=== PATIENT | male | born 1980 | race Caucasian/White ===

== ENCOUNTER 2020-07-10 21:00 | Emergency (ER) | payer OTHER, SELFPAY ==
[2020-07-10 21:03] VITALS: BP 140/107; PULSE 65; RESP 18; TEMP 36.7; O2SAT 72; BMI 25.0
--- NOTE | 2020-07-10 21:16 | PC.NURSE ---
IN ROOM FOR EVAL.
--- NOTE | 2020-07-10 21:19 | PC.NURSE ---
Iv established, labs obtained. at bedside for primary eval.
--- NOTE | 2020-07-10 21:22 | CT_ITS ---
EXAMINATION: CT ABDOMEN AND PELVIS WITH CONTRAST CLINICAL INFORMATION: Left lower quadrant pain. History of diverticulitis. COMPARISON: CT scan abdomen pelvis 11/30/2019 TECHNIQUE: Multidetector volumetric images were obtained from the superior aspect of the liver through the pubic symphysis following administration 85 mL of Omnipaque 350 intravenous contrast. Sagittal and coronal reformatted images were obtained on the technologist's workstation. Oral contrast: No This CT examination was performed using dose optimization techniques as appropriate, variously including the following: *Automated exposure control *Adjustment of mA and/or kV according to patient size (this includes techniques or standardized protocols for targeted exams where dose is matched to indication/reason for exam; i.e. extremities or head) *Use of iterative reconstruction technique DLP: 648 mGy-cm FINDINGS: LUNG BASES: The visualized lung bases are unremarkable. LIVER, GALLBLADDER, AND BILIARY TREE: The liver is normal in size, shape, and attenuation. No focal hepatic lesion or biliary ductal dilatation is present. The gallbladder is unremarkable with no evidence of radiopaque gallstones, gallbladder wall thickening, or obvious pericholecystic inflammatory changes. PANCREAS: Unremarkable. SPLEEN: Unremarkable. ADRENAL GLANDS: Unremarkable. KIDNEYS AND URETERS: The kidneys are normal in size, shape, and attenuation. No hydronephrosis, hydroureter, or calculi seen. No perinephric stranding. Tiny cortical cyst upper pole of right kidney BLADDER: Unremarkable. GASTROINTESTINAL TRACT: There is diverticulosis of the sigmoid and distal descending colon. There is moderate diverticulitis of the distal descending proximal sigmoid colon. There is bowel wall thickening and pericolonic edema. Small amount of fluid adjacent to the colon in this area. No perforation or abscess. No bowel obstruction. Moderate volume of stool in the colon with most of the stool in the right colon. The appendix is normal. The small bowel loops are unremarkable. ABDOMINAL WALL: Surgical mesh at the anterior lower abdominal wall and pelvis. There is a small fat-containing right inguinal hernia. LYMPH NODES: Normal. VASCULAR: Unremarkable. PELVIC VISCERA: Unremarkable. OSSEOUS STRUCTURES: Linear track of osteosclerotic changes of the medullary cavity of the right proximal femur. Question prior intramedullary yosi. Degenerative change of the lumbosacral junction with vacuum disc phenomenon and vertebral endplate spurs. CT/CT abdomen pelvis w con IMPRESSION: Diverticulitis of the distal descending and proximal sigmoid colon
--- NOTE | 2020-07-10 21:25 | ED.ABDPAIN ---
HPI - Abdominal Pain General Chief Complaint: Abdominal Pain Stated Complaint: ABDOMINAL PAIN Time Seen by Provider: 07/10/20 21:22 Source: patient Mode of arrival: ambulatory Limitations: no limitations History of Present Illness HPI narrative: 39-year-old male who presents to emergency department for evaluation of lower abdominal pain which began yesterday. The patient states the pain came on gradually and got progressively worse. He describes the pain as a constant, stabbing pain which is 10/10. He points to his suprapubic and left lower quadrant area when asked to localize the pain. He had 1 episode of emesis this morning. He has had associated nausea with loss of appetite. He has had several episodes of loose diarrheal stool with no blood in stool. Patient states that he has had 2 episodes of diverticulitis in the past today's pain feels like his diverticulitis pain. He states this last episode was 1 year prior and he was treated with oral antibiotics as an outpatient. The patient's past surgical history is significant for bilateral herniorrhaphy. Related Data Previous Rx's Medication Instructions Recorded levofloxacin 500 mg PO DAILY 10 Days #10 tab 07/11/20 metronidazole 500 mg PO TID 10 Days #30 tab 07/11/20 oxycodone 5 mg PO Q4H PRN #12 tab 07/11/20 Allergies Allergy/AdvReac Type Severity Reaction Status Date / Time amoxicillin [From AUGMENTIN] Allergy Unknown HIVES Verified 07/10/20 21:02 clavulanic acid Allergy Unknown HIVES Verified 07/10/20 21:02 [From AUGMENTIN] Review of Systems Review of Systems Yes all other systems are reviewed and are negative Constitutional: Reports as per HPI Eyes: Reports as per HPI Reports as per HPI Cardiovascular: Reports as per HPI Respiratory: Reports as per HPI Gastrointestinal: Reports as per HPI Genitourinary: Reports as per HPI Musculoskeletal: Reports as per HPI Skin/Breast: Reports as per HPI Reports as per HPI and Reports Abnormal speech present Psychiatric: Reports as per HPI Allergic/Immunologic: Reports as per HPI Physical Exam Vital Signs: Vital Signs: Last Vital Signs Temp 98.1 F 07/10/20 21:03 Pulse 65 07/10/20 21:03 Resp 18 07/10/20 21:03 BP 140/107 H 07/10/20 21:03 Pulse Ox 72 L 07/10/20 21:03 Body Mass Index 25.0 Const: General: cooperative, alert, awake and other (Mild distress secondary to pain) Nutritional Appearance: well nourished Orientation/consciousness: oriented to person and oriented to place Limitations: no limitations HENMT: Head: Yes normal to inspection, Yes normocephalic and Yes atraumatic Ears: external ears normal General nose exam: Normal external nose present Face and sinus: Yes normal facial exam Mouth: Normal oral and palatal mucosa present Throat: Yes posterior oropharynx normal Eyes: General: appearance normal, both eyes and all related structures Periorbital: periorbital findings normal Eyelids: Yes eyelids normal Conjunctivae: conjunctivae normal Sclerae: sclerae normal Corneas: corneas normal Pupils: Equal, round and reactive pupils present Direct Ophthalmoscopy: normal light reflex Neck: Neck: Yes normal visual inspection and Yes supple Lymphatic: no lymphadenopathy noted Chest: Chest palpation & inspection: normal inspection of the chest and normal palpation of entire chest wall Resp: Effort & Inspection: normal respiratory effort, abnormal respiratory pattern, no audible wheezes and no respiratory distress Auscultation: clear to auscultation bilaterally, no crackles, no rales, no rhonchi and no wheezes Cardio: Rate: regular rate Rhythm: regular rhythm Heart sounds: S1 normal heart sound present and S2 normal heart sound present GI: Inspection: No distended Palpation (GI): Soft to palpation, Tenderness to palpation present (GI) in the LUQ (Moderate) and suprapubicly (Moderate), no guarding and No hepatosplenomegaly present Auscultation: normal bowel sounds : General: Yes no CVA tenderness Back/Spine/Pelvis: Back: no CVA tenderness Skin: General skin exam: no rashes or lesions noted Lesions: no lesions Rashes: no rashes Wounds: no wounds Neuro: General: oriented to person and oriented to place Cranial nerves: Yes CN's II-XII intact bilaterally and Yes Equal, round and reactive pupils present Cognition (Neuro): normal cognition Speech: Abnormal speech present Motor exam (neuro): 5/5 motor strength present throughout Extrem: General: Yes normal to inspection, Yes full ROM, Yes no pedal edema and Yes no calf tenderness Psych: Appearance: grossly normal Mental Status: mental status grossly normal Speech and movement: Clear speech present Affect: normal affect Thought process: Normal thought process present Course Course Course Narrative: 39-year-old male with a history of diverticulitis x2 in the past, last episode 1 year prior presents with suprapubic and left lower quadrant pain x2 days which feels similar to his diverticulitis in the past. Physical examination revealed that he was in distress secondary to his pain did have moderate suprapubic and left lower quadrant tenderness. I ordered an abdominal pain workup to include CT scan of the abdomen pelvis with IV contrast. He was ordered Toradol 30 mg IV, Zofran 4 mg IV normal saline IV x1 L. 0001: The patient's laboratory evaluation was unremarkable. The patient's CT scan of the abdomen pelvis with IV contrast revealed diverticulitis of the distal descending and proximal sigmoid colon, there was no evidence of perforation or abscess, the patient does have mural wall thickening and fluid around the colon. The patient got some improvement with Toradol and he did not want any IV morphine at this point because he wants to drive home. The patient was given his 1st dose of Levaquin 500 mg orally and metronidazole 500 mg orally. The patient was discharged home with prescriptions for Levaquin and metronidazole for 10 days. He was advised to take Tylenol and ibuprofen for pain and was given a limited prescription for oxycodone 5 mg every 4-6 hours as needed for pain dispense . He is given a note not to return to work until Wednesday07/14/2020. [facility] search revealed 1 prescription for tramadol over a 1 year surgery arranged.. MDM - Abdominal Pain Lab Data Result diagrams: 07/10/20 21:33 07/10/20 21:33 Labs: Lab Results 07/10/20 07/10/20 07/10/20 Range/Units 21:33 21:33 23:27 WBC 10.1 (4.8-10.8) X10*3/uL RBC 4.85 (4.60-5.80) X10*6/uL Hgb 16.0 (14.0-18.0) g/dl Hct 46.8 (42-52) % MCV 96.5 (80-98) fL MCH 33.0 (27.0-33.0) pg MCHC 34.2 (31.0-36.0) g/dl RDW 13.9 (11.0-16.0) % Plt Count 202 (160-400) X10*3/uL MPV 9.0 L (9.4-12.4) fL Immature Gran % (Auto) 0.2 (0.0-0.4) % Neut % (Auto) 63.8 (45-73) % Lymph % (Auto) 23.8 (20-40) % [place] % (Auto) 10.4 (2-11) % Eos % (Auto) 1.3 (0-4) % Baso % (Auto) 0.5 (0-2) % Lymph # (Auto) 2.4 (1.2-4.9) X10*3/uL [place] # (Auto) 1.1 (0.1-1.2) X10*3/uL Eos # (Auto) 0.1 (0.0-0.4) X10*3/uL Baso # (Auto) 0.1 (0.0-0.2) X10*3/uL Abs Immat Gran (auto) 0.02 (0.00-0.03) X10*3/uL Absolute Neuts (auto) 6.4 (2.0-8.3) X10*3/uL Absolute Nucleated RBC 0.000 (0.0-0.012) X10*3/uL Nucleated RBC % (auto) 0.0 (0.0-0.2) /100WBC Sodium 135 (135-145) mmol/L Potassium 4.2 (3.3-5.1) mmol/l Chloride 97 (96-108) mmol/L Carbon Dioxide 28 (22-29) mmol/L Anion Gap 14 (12-20) BUN 15 (9-16) mg/dL Creatinine 1.09 (0.5-1.4) mg/dL Estim Creat Clear Calc 83.3 Estimated GFR > 60 Random Glucose 108 (60-115) mg/dL Calcium 9.0 (8.4-10.2) mg/dL Total Bilirubin 0.6 (0.0-1.0) mg/dL Direct Bilirubin 0.3 (0.0-0.5) mg/dL AST 35 (5-37) U/L ALT 47 H (0-40) U/L Alkaline Phosphatase 52 (39-117) U/L Total Protein 7.5 (6.5-8.0) g/dL Albumin 4.4 (3.5-5.0) g/dL Lipase 36 (8-78) U/L Urine Color YELLOW Urine Appearance CLEAR Urine pH 7.5 (5.0-8.0) Ur Specific [place] <= 1.005 (1.005-1.025) Urine Protein NEG (NEG-TRACE) MG/DL Urine Glucose (UA) NEG (NEG) MG/DL Urine Ketones NEG (NEG) MG/DL Urine Blood NEG (NEG) Urine Nitrite NEG (NEG) Ur Leukocyte Esterase NEG (NEG) Discharge Plan Discharge Clinical Impression: Diverticulitis Patient Disposition: Home, Self-Care Instructions: Diverticulitis (ED) Additional Instructions: Your blood work was normal. The CT scan of your abdomen and pelvis with IV contrast is consistent with diverticulitis of the descending and proximal sigmoid colon. There is no evidence for perforation (free air) or an abscess at this time. You received Levaquin 500 mg orally and Flagyl 500 mg orally here in the emergency department. Take Levaquin 500 mg once a day for 10 days. Take Flagyl (metronidazole) 500 mg 3 times a day for the 10 days. Take ibuprofen 200 mg pills, 3 pills every 6 hours as needed for pain. Take Tylenol extra strength 500 mg pills, 2 pills every 4-6 hours as needed for pain. For pain not relieved by ibuprofen or Tylenol take oxycodone 5 mg pills, 1 pill every 4 hours as needed for pain. This medication will make you sleepy, do not drive or work while taking this medication. This medication can be addicting. No work until [id number]/14/2020. Follow-up with your doctor in 2 days for re-evaluation. Please return to emergency department if your symptoms get worse or if you develop any new symptoms that are concerning to you. Prescriptions: New levofloxacin 500 mg tablet 500 mg PO DAILY 10 Days Qty: 10 RF: 0 metronidazole 500 mg tablet 500 mg PO TID 10 Days Qty: 30 RF: 0 oxycodone 5 mg tablet 5 mg PO Q4H PRN (Reason: pain) Qty: 12 RF: 0 [facility] Past Medical History Attestation statement: The following information was validated with the patient. [facility] Narrative: The patient states he is employed. He does smoke 1 pack of cigarettes per day times 10 years. He drinks alcohol 2 to 3 times a week. He smokes marijuana daily. Medical History Diverticulitis Social History Social History Advance Directives: No Advance Directives Information Provided: Yes
[2020-07-10] MEDS: ondansetron HCL 4 MG/2 ML VIAL IVPUSH (21:31)
[2020-07-10] MEDS: Ketorolac Tromethamine 30 MG/ML VIAL IVPUSH (21:31)
--- NOTE | 2020-07-10 21:34 | PC.NURSE ---
Pt medicated per EMAR for 10/10 pain and nausea, aware of plan to obtain CT. Continue to monitor.
[2020-07-10 21:40] LABS: Basophils Absolute Auto 0.1 X10*3/uL (0.0-0.2); Basophils Percent Auto 0.5 % (0-2); Eosinophils Absolute Auto 0.1 X10*3/uL (0.0-0.4); Eosinophils Percent Auto 1.3 % (0-4); Hematocrit 46.8 % (42-52); Imm Gran Abs Auto 0.02 X10*3/uL (0.00-0.03); Imm Gran Pct Auto 0.2 % (0.0-0.4); Lymphocytes Absolute Auto 2.4 X10*3/uL (1.2-4.9); Lymphocytes Percent Auto 23.8 % (20-40); MANUAL DIFF FLAG NO; Mean Corpuscular HGB Conc 34.2 g/dl (31.0-36.0); Mean Corpuscular Volume 96.5 fL (80-98); Monocytes Absolute Auto 1.1 X10*3/uL (0.1-1.2); Monocytes Percent Auto 10.4 % (2-11); Neutrophils Absolute Auto 6.4 X10*3/uL (2.0-8.3); Neutrophils Percent Auto 63.8 % (45-73); Platelet Count 202 X10*3/uL (160-400); Red Blood Count 4.85 X10*6/uL (4.60-5.80); Red Cell Distribution Width 13.9 % (11.0-16.0); White Blood Count 10.1 X10*3/uL (4.8-10.8)
[2020-07-10 22:20] LABS: Alanine Aminotransferase 47 U/L (0-40); Albumin Level 4.4 g/dL (3.5-5.0); Alkaline Phosphatase 52 U/L (39-117); Anion Gap 14 (12-20); Aspartate Amino Transferase 35 U/L (5-37); Bilirubin Direct 0.3 mg/dL (0.0-0.5); Bilirubin Total 0.6 mg/dL (0.0-1.0); Blood Urea Nitrogen 15 mg/dL (9-16); Carbon Dioxide 28 mmol/L (22-29); Chloride 97 mmol/L (96-108); Creatinine Clr Calc Pharmacy 83.3; Estimated Glomerular Filt Rate > 60; Glucose Random 108 mg/dL (60-115); Lipase 36 U/L (8-78); Potassium 4.2 mmol/l (3.3-5.1); Sodium 135 mmol/L (135-145); Total Protein 7.5 g/dL (6.5-8.0)
[2020-07-10] MEDS: iohexoL 350 MG/ML 100 ML INFUS..BTL IV (22:32)
[2020-07-10 23:51] LABS: Glucose Urine UA NEG (NEG); Leukocyte Esterase Urine NEG (NEG); Nitrite Urine NEG (NEG); PH 7.5 (5.0-8.0); Specific Gravity - Urine <= 1.005 (1.005-1.025); Urine Blood NEG (NEG); Urine Ketones NEG (NEG); Urine Protein NEG (NEG-TRACE)
[2020-07-10 23:53] LABS: Appearance Urine CLEAR; Color Urine YELLOW; UACC Culture Trigger NO
[2020-07-11] MEDS: metroNIDAZOLE 500 MG TABLET PO (00:14)
[2020-07-11] MEDS: levoFLOXacin 500 MG TABLET PO (00:14)
== END 2020-07-11 00:22 | disposition home or self-care (01) ==
PROVIDERS: Emergency Provider Emergency Medicine Emergency Medical Services
DX: K57.32 Diverticulitis of large intestine without perforation or abscess without bleeding (principal)
CPT/HCPCS: 36415; 74177; 80048; 80076; 81003; 83690; 85025; 96374; 96375; 99283; 99284; J1885; J2405; Q9967

== ENCOUNTER 2020-12-04 22:35 | Emergency (ER) | payer OTHER, SELFPAY ==
--- NOTE | ~2020-12-04 | CT_ITS ---
EXAMINATION: CT ABDOMEN AND PELVIS WITHOUT CONTRAST CLINICAL INFORMATION: Left lower quadrant pain with history of diverticulitis COMPARISON: 07/10/2020 TECHNIQUE: Multidetector volumetric imaging was performed from the superior aspect of the liver through the pubic symphysis. Sagittal and coronal reformatted images were obtained on the technologist's workstation. This CT examination was performed using dose optimization techniques as appropriate, variously including the following: *Automated exposure control *Adjustment of mA and/or kV according to patient size (this includes techniques or standardized protocols for targeted exams where dose is matched to indication/reason for exam; i.e. extremities or head) *Use of iterative reconstruction technique DLP: 680 mGy-cm FINDINGS: Suboptimal assessment in some regions due to motion artifact. LUNG BASES: The visualized lung bases are unremarkable. LIVER, GALLBLADDER, AND BILIARY TREE: The liver demonstrates some heterogeneity in the right lobe with areas of lower attenuation, suspicious for nonuniform fatty infiltration. No biliary ductal dilatation is present. The gallbladder is unremarkable with no evidence of radiopaque gallstones, gallbladder wall thickening, or obvious pericholecystic inflammatory changes. PANCREAS: Unremarkable. SPLEEN: Unremarkable. ADRENAL GLANDS: Unremarkable. KIDNEYS AND URETERS: The kidneys are normal in size, shape, and attenuation. No hydronephrosis, hydroureter, or calculi seen. No perinephric stranding. BLADDER: Unremarkable. GASTROINTESTINAL TRACT: There is a short segment of wall thickening and surrounding inflammation in the distal descending colon in the region of diverticula, most suspicious for acute diverticulitis. No pericolonic abscess or free air is seen. No evidence of bowel obstruction. The appendix is unremarkable. ABDOMINAL WALL: There is a fat-containing right inguinal hernia. LYMPH NODES: Normal. VASCULAR: Infrarenal aortic calcification is noted. PELVIC VISCERA: Unremarkable. OSSEOUS STRUCTURES: Scattered degenerative changes are present in the spine. CT/CT abdomen pelvis wo con IMPRESSION: 1. Diverticulitis of the distal descending colon. Correlation with recent or followup colonoscopy is advised to exclude an underlying mass lesion. 2. Heterogeneous appearance of the right hepatic lobe, suspicious for nonuniform fatty infiltration.
[2020-12-04 23:16] VITALS: BP 128/96; PULSE 95; RESP 16; TEMP 36.5; O2SAT 98; BMI 23.5
--- NOTE | 2020-12-05 00:45 | ECG_ITS ---
Test Reason : ABDOMINAL PAIN Blood Pressure : / mmHG Vent. Rate : 078 BPM Atrial Rate : 078 BPM P-R Int : 148 ms QRS Dur : 090 ms QT Int : 426 ms P-R-T Axes : 042 006 028 degrees QTc Int : 485 ms Normal sinus rhythm Possible Left atrial enlargement Prolonged QT Abnormal ECG No previous ECGs available Referred By: Willi Bonds Electronically Signed By:ALEKSANDRA BALLARD
--- NOTE | 2020-12-05 00:48 | ED_ITS ---
HPI - Abdominal Pain General Chief Complaint: Abdominal Pain Stated Complaint: abdominal pain Time Seen by Provider: 12/05/20 00:33 Source: patient Mode of arrival: ambulatory Limitations: no limitations History of Present Illness HPI narrative: Patient history of diverticulitis alcohol abuse complaining of pain left lower quadrant pain similar to when he had diverticulitis pain last year pain is going on for last 1 week got worse today earlier. With nausea no vomiting no diarrhea patient been drinking heavy today. No history of pancreatitis no fever or chills no shortness of breath no blood in the stool Related Data Previous Rx's Medication Instructions Recorded levofloxacin 500 mg PO DAILY 10 Days #10 tab 07/11/20 metronidazole 500 mg PO TID 10 Days #30 tab 07/11/20 oxycodone 5 mg PO Q4H PRN #12 tab 07/11/20 Allergies Allergy/AdvReac Type Severity Reaction Status Date / Time amoxicillin [From AUGMENTIN] Allergy Unknown HIVES Verified 07/10/20 21:02 clavulanic acid Allergy Unknown HIVES Verified 07/10/20 21:02 [From AUGMENTIN] Review of Systems Review of Systems Constitutional : No Weight loss, No Fever, No Chills ENT/Mouth : No sore throat, No Rhinorrhea Eyes: No Eye Pain, No Swelling Cardiovascular : No Chest Pain, no palpitations Respiratory : No Cough, No Sputum, no shortness of breath Gastrointestinal : + Nausea, No Vomiting, No Diarrhea, + abdominal Pain, no black stools Genitourinary : No Dysuria, No Urinary Frequency Musculoskeletal : No joint pain, No Myalgias, No Joint Swelling Skin : No Skin Lesions, No rash Neuro : No Weakness, No Numbness, No Dizziness, No Headache Psych : No Anxiety/Panic, No Depression Heme/Lymph: No Bruising, No Lymphadenopathy Endocrine : No Polyuria, No Polydipsia All other systems reviewed and are negative Physical Exam Vital Signs: Vital Signs: Last Vital Signs Temp 97.7 F 12/04/20 23:16 Pulse 95 12/04/20 23:16 Resp 15 12/05/20 01:48 BP 128/96 H 12/04/20 23:16 Pulse Ox 98 12/04/20 23:16 Body Mass Index 23.5 Appearance: Alert. Oriented X3. In moderate distress. ETOH+ Eyes: PERRLA, No Nystagmus ENT: Pharynx normal. Oral Mucosa moist Neck: Normal inspection. Neck supple. CVS: Normal heart rate and rhythm. Pulses normal. Respiratory: No respiratory distress. Equal air entry bilateral, no wheezing/rales/rhonchi Abdomen: Soft tenderness left lower quadrant guarding present no rebound tenderness or Bowel sounds are present, no mass palpable, no CVA tenderness Skin: Skin warm and dry. Normal skin color. Normal skin turgor. Extremities: No lower extremity edema. No calf tenderness Neuro: Oriented X 3. No motor deficit. No sensory deficit.No cerebellar signs , cranial nerves II-XII intact MDM - Abdominal Pain Medical Records Attestation: I reviewed the patient's medical records. Lab Data Attestation: I reviewed the patient's lab results. Result diagrams: 12/05/20 01:00 12/05/20 01:00 Labs: Lab Results 12/05/20 12/05/20 12/05/20 Range/Units 01:00 01:00 01:00 WBC 9.5 (4.8-10.8) X10*3/uL RBC 4.90 (4.60-5.80) X10*6/uL Hgb 16.4 (14.0-18.0) g/dl Hct 47.2 (42-52) % MCV 96.3 (80-98) fL MCH 33.5 H (27.0-33.0) pg MCHC 34.7 (31.0-36.0) g/dl RDW 14.2 (11.0-16.0) % Plt Count 176 (160-400) X10*3/uL MPV 9.3 L (9.4-12.4) fL Immature Gran % (Auto) 0.4 (0.0-0.4) % Neut % (Auto) 65.6 (45-73) % Lymph % (Auto) 24.7 (20-40) % [place] % (Auto) 8.1 (2-11) % Eos % (Auto) 0.8 (0-4) % Baso % (Auto) 0.4 (0-2) % Lymph # (Auto) 2.4 (1.2-4.9) X10*3/uL [place] # (Auto) 0.8 (0.1-1.2) X10*3/uL Eos # (Auto) 0.1 (0.0-0.4) X10*3/uL Baso # (Auto) 0.0 (0.0-0.2) X10*3/uL Abs Immat Gran (auto) 0.04 H (0.00-0.03) X10*3/uL Absolute Neuts (auto) 6.2 (2.0-8.3) X10*3/uL Absolute Nucleated RBC 0.000 (0.0-0.012) X10*3/uL Nucleated RBC % (auto) 0.0 (0.0-0.2) /100WBC PT 13.0 (10.8-13.0) SEC INR 1.1 (0.9-1.1) Total Bilirubin 0.6 (0.0-1.0) mg/dL Direct Bilirubin 0.2 (0.0-0.5) mg/dL AST 27 (5-37) U/L ALT 57 H (0-40) U/L Alkaline Phosphatase 61 (39-117) U/L Total Protein 7.2 (6.5-8.0) g/dL Albumin 4.2 (3.5-5.0) g/dL Lipase 27 (8-78) U/L Ethyl Alcohol mg/dL 12/05/20 Range/Units 01:00 WBC (4.8-10.8) X10*3/uL RBC (4.60-5.80) X10*6/uL Hgb (14.0-18.0) g/dl Hct (42-52) % MCV (80-98) fL MCH (27.0-33.0) pg MCHC (31.0-36.0) g/dl RDW (11.0-16.0) % Plt Count (160-400) X10*3/uL MPV (9.4-12.4) fL Immature Gran % (Auto) (0.0-0.4) % Neut % (Auto) (45-73) % Lymph % (Auto) (20-40) % [place] % (Auto) (2-11) % Eos % (Auto) (0-4) % Baso % (Auto) (0-2) % Lymph # (Auto) (1.2-4.9) X10*3/uL [place] # (Auto) (0.1-1.2) X10*3/uL Eos # (Auto) (0.0-0.4) X10*3/uL Baso # (Auto) (0.0-0.2) X10*3/uL Abs Immat Gran (auto) (0.00-0.03) X10*3/uL Absolute Neuts (auto) (2.0-8.3) X10*3/uL Absolute Nucleated RBC (0.0-0.012) X10*3/uL Nucleated RBC % (auto) (0.0-0.2) /100WBC PT (10.8-13.0) SEC INR (0.9-1.1) Total Bilirubin (0.0-1.0) mg/dL Direct Bilirubin (0.0-0.5) mg/dL AST (5-37) U/L ALT (0-40) U/L Alkaline Phosphatase (39-117) U/L Total Protein (6.5-8.0) g/dL Albumin (3.5-5.0) g/dL Lipase (8-78) U/L Ethyl Alcohol 174 mg/dL Imaging Data CT scan - abdomen: Attestation: I personally reviewed and interpreted this imaging study as follows: Radiologist's impression: EXAMINATION: CT ABDOMEN AND PELVIS WITHOUT CONTRAST CLINICAL INFORMATION: Left lower quadrant pain with history of diverticulitis COMPARISON: 07/10/2020 TECHNIQUE: Multidetector volumetric imaging was performed from the superior aspect of the liver through the pubic symphysis. Sagittal and coronal reformatted images were obtained on the technologist's workstation. This CT examination was performed using dose optimization techniques as appropriate, variously including the following: *Automated exposure control *Adjustment of mA and/or kV according to patient size (this includes techniques or standardized protocols for targeted exams where dose is matched to indication/reason for exam; i.e. extremities or head) *Use of iterative reconstruction technique DLP: 680 mGy-cm FINDINGS: Suboptimal assessment in some regions due to motion artifact. LUNG BASES: The visualized lung bases are unremarkable. LIVER, GALLBLADDER, AND BILIARY TREE: The liver demonstrates some heterogeneity in the right lobe with areas of lower attenuation, suspicious for nonuniform fatty infiltration. No biliary ductal dilatation is present. The gallbladder is unremarkable with no evidence of radiopaque gallstones, gallbladder wall thickening, or obvious pericholecystic inflammatory changes. PANCREAS: Unremarkable. SPLEEN: Unremarkable. ADRENAL GLANDS: Unremarkable. KIDNEYS AND URETERS: The kidneys are normal in size, shape, and attenuation. No hydronephrosis, hydroureter, or calculi seen. No perinephric stranding. BLADDER: Unremarkable. GASTROINTESTINAL TRACT: There is a short segment of wall thickening and surrounding inflammation in the distal descending colon in the region of diverticula, most suspicious for acute diverticulitis. No pericolonic abscess or free air is seen. No evidence of bowel obstruction. The appendix is unremarkable. ABDOMINAL WALL: There is a fat-containing right inguinal hernia. LYMPH NODES: Normal. VASCULAR: Infrarenal aortic calcification is noted. PELVIC VISCERA: Unremarkable. OSSEOUS STRUCTURES: Scattered degenerative changes are present in the spine. CT/CT abdomen pelvis wo con IMPRESSION: 1. Diverticulitis of the distal descending colon. Correlation with recent or followup colonoscopy is advised to exclude an underlying mass lesion. 2. Heterogeneous appearance of the right hepatic lobe, suspicious for nonuniform fatty infiltration. Discharge Plan Discharge Prescriptions: No Action levofloxacin 500 mg tablet 500 mg PO DAILY 10 Days Qty: 10 RF: 0 metronidazole 500 mg tablet 500 mg PO TID 10 Days Qty: 30 RF: 0 oxycodone 5 mg tablet 5 mg PO Q4H PRN (Reason: pain) Qty: 12 RF: 0 PMFSH Past Medical History Medical History Diverticulitis Social History Social History Smoking Status: Current every day smoker Use of substances other than those prescribed or required for medical reasons: No Advance Directives: No Advance Directives Information Provided: No
[2020-12-05 01:04] LABS: MANUAL DIFF FLAG NO
[2020-12-05 01:12] LABS: Basophils Percent Auto 0.4 % (0-2); Eosinophils Absolute Auto 0.1 X10*3/uL (0.0-0.4); Eosinophils Percent Auto 0.8 % (0-4); Hematocrit 47.2 % (42-52); Hemoglobin 16.4 g/dl (14.0-18.0); Imm Gran Abs Auto 0.04 X10*3/uL (0.00-0.03); Imm Gran Pct Auto 0.4 % (0.0-0.4); Lymphocytes Absolute Auto 2.4 X10*3/uL (1.2-4.9); Lymphocytes Percent Auto 24.7 % (20-40); Mean Corpuscular HGB Conc 34.7 g/dl (31.0-36.0); Mean Corpuscular Hemoglobin 33.5 pg (27.0-33.0); Mean Corpuscular Volume 96.3 fL (80-98); Mean Platelet Volume 9.3 fL (9.4-12.4); Monocytes Absolute Auto 0.8 X10*3/uL (0.1-1.2); Monocytes Percent Auto 8.1 % (2-11); Neutrophils Absolute Auto 6.2 X10*3/uL (2.0-8.3); Neutrophils Percent Auto 65.6 % (45-73); Platelet Count 176 X10*3/uL (160-400); Red Cell Distribution Width 14.2 % (11.0-16.0); White Blood Count 9.5 X10*3/uL (4.8-10.8)
[2020-12-05 01:22] LABS: INTERNATIONAL NORM RATIO 1.1 (0.9-1.1)
[2020-12-05 01:42] LABS: Ethanol 174 mg/dL
[2020-12-05 01:46] LABS: Alanine Aminotransferase 57 U/L (0-40); Albumin Level 4.2 g/dL (3.5-5.0); Alkaline Phosphatase 61 U/L (39-117); Aspartate Amino Transferase 27 U/L (5-37); Bilirubin Direct 0.2 mg/dL (0.0-0.5); Bilirubin Total 0.6 mg/dL (0.0-1.0); Lipase 27 U/L (8-78); Total Protein 7.2 g/dL (6.5-8.0)
[2020-12-05 01:48] VITALS: RESP 15
[2020-12-05] MEDS: ondansetron HCL 4 MG/2 ML VIAL IVPUSH (01:48)
[2020-12-05] MEDS: Morphine Sulfate 4 MG/ML CARTRIDGE IVPUSH (01:48)
[2020-12-05] MEDS: 0.9 % Sodium Chloride 1,000 ML 999 ML IVCONT (01:48)
[2020-12-05] MEDS: Famotidine/PF 20 MG/2 ML VIAL IVPUSH (01:49)
[2020-12-05 03:50] LABS: Anion Gap 17 (12-20); Blood Urea Nitrogen 8 mg/dL (9-16); Calcium 8.9 mg/dL (8.4-10.2); Carbon Dioxide 24 mmol/L (22-29); Chloride 104 mmol/L (96-108); Creatinine Clr Calc Pharmacy 84.8; Estimated Glomerular Filt Rate > 60; Glucose Random 98 mg/dL (60-115); Potassium 4.1 mmol/L (3.3-5.1); Sodium 141 mmol/L (135-145)
== END 2020-12-05 02:40 | disposition home or self-care (01) ==
PROVIDERS: Emergency Provider Internal Medicine
DX: K57.32 Diverticulitis of large intestine without perforation or abscess without bleeding (principal); R10.32 Left lower quadrant pain; F17.200 Nicotine dependence, unspecified, uncomplicated; Z71.6 Tobacco abuse counseling; Z79.899 Other long term (current) drug therapy
CPT/HCPCS: 36415; 74176; 80048; 80076; 80320; 83690; 85025; 85610; 93005; 96365; 96375; 99284; J2270; J2405

== ENCOUNTER 2022-07-16 14:02 | Emergency (ER) | payer OTHER, SELFPAY ==
--- NOTE | ~2022-07-16 | CT_ITS ---
EXAMINATION: CT ABDOMEN AND PELVIS WITHOUT CONTRAST CLINICAL INFORMATION: Left lower quadrant abdominal pain. History of diverticulitis COMPARISON: CT abdomen pelvis 12/05/2020 TECHNIQUE: Multidetector volumetric imaging was performed from the superior aspect of the liver through the pubic symphysis. Sagittal and coronal reformatted images were obtained on the technologist's workstation. This CT examination was performed using dose optimization techniques as appropriate, variously including the following: *Automated exposure control *Adjustment of mA and/or kV according to patient size (this includes techniques or standardized protocols for targeted exams where dose is matched to indication/reason for exam; i.e. extremities or head) *Use of iterative reconstruction technique DLP: 566 mGy-cm FINDINGS: LUNG BASES: Bibasilar subsegmental atelectasis in the lingula and right middle lobe. LIVER, GALLBLADDER, AND BILIARY TREE: Diffuse hepatic hypoattenuation consistent with steatosis. Liver is normal in size. No hepatic lesion. No biliary ductal dilation. The gallbladder is unremarkable. No calcified gallstones, gallbladder wall thickening or pericholecystic inflammatory change. PANCREAS: Unremarkable. SPLEEN: Unremarkable. ADRENAL GLANDS: Unremarkable. KIDNEYS AND URETERS: The kidneys are normal in size, shape, and attenuation. No hydronephrosis, hydroureter, or calculi seen. No perinephric stranding. BLADDER: Unremarkable. GASTROINTESTINAL TRACT: Descending and sigmoid diverticulosis. Segmental circumferential mural thickening of the distal descending/proximal sigmoid colon with extensive pericolonic inflammatory change consistent with acute diverticulitis. There is thickening of the adjacent lateral conal and pararenal fascia. No extraluminal gas or pericolonic abscess. No pneumoperitoneum or free air. No additional bowel wall thickening. No dilated bowel loops. Normal appendix. ABDOMINAL WALL: Metallic tacks in the lower ventral abdominal wall consistent with prior hernia repair. Fat-containing right inguinal hernia. Tiny fat-containing umbilical hernia. LYMPH NODES: No lymphadenopathy. VASCULAR: Normal caliber abdominal aorta with scant calcification. Retroaortic left renal vein noted. PELVIC VISCERA: Unremarkable. OSSEOUS STRUCTURES: No acute fracture or suspicious osseous lesion. Moderate degenerative disc disease at L5-S1 with mild retrolisthesis. Evidence of previously removed fixation from the right proximal femur. CT/CT abdomen pelvis wo IV con IMPRESSION: 1. Findings consistent with acute uncomplicated diverticulitis of the distal descending/proximal sigmoid colon. No evidence of perforation or abscess. 2. Hepatic steatosis.
[2022-07-16 15:11] VITALS: BP 134/90; PULSE 96; RESP 18; TEMP 36.6; O2SAT 98; BMI 24.3
--- NOTE | 2022-07-16 15:11 | ED_ITS ---
HPI - Abdominal Pain General Chief Complaint: Abdominal Pain Stated Complaint: abd pain Time Seen by Provider: 07/16/22 17:38 Source: patient Mode of arrival: ambulatory Limitations: no limitations History of Present Illness HPI narrative: 41yoM c PMHx of diverticulitis presenting to the ER with complaints of abdominal pain with associated nausea and diarrhea that started yesterday. Reports that he thinks he might be having diverticulitis flare up. Denies any other symptoms related to this. MD elicited complaint: abdominal pain Pertinent past history: diverticulitis Onset (ago): day(s) (Since yesterday worse today) Pain Consistency: constant Location: LLQ Severity: moderate Quality: cramping and aching Radiation: none Migration to: no migration Exacerbating factors: nothing Relieving factors: nothing Associated symptoms: nausea and diarrhea Related Data Previous Rx's Medication Instructions Recorded levofloxacin 500 mg tablet 500 mg PO DAILY 10 days #10 tabs 07/11/20 metronidazole 500 mg tablet 500 mg PO TID 10 days #30 tabs 07/11/20 oxycodone 5 mg tablet 5 mg PO Q4H PRN pain #12 tabs 07/11/20 ciprofloxacin HCl 500 mg tablet 500 mg PO BID #20 tabs 12/05/20 (Cipro) metronidazole 500 mg tablet 500 mg PO TID #30 tabs 12/05/20 (Flagyl) oxycodone 5 mg tablet 5 mg PO Q6H PRN Pain (Scale Score 12/05/20 4-6) #20 tabs levofloxacin 500 mg tablet 500 mg PO Q24H Diverticulitis 10 07/16/22 days #10 tabs metronidazole 500 mg tablet 500 mg PO TID Diverticulitis 10 07/16/22 days #30 tabs oxycodone 5 mg tablet 5 mg PO Q6H PRN pain #14 tabs 07/16/22 Allergies Allergy/AdvReac Type Severity Reaction Status Date / Time amoxicillin [From AUGMENTIN] Allergy Unknown HIVES Verified 07/10/20 21:02 clavulanic acid Allergy Unknown HIVES Verified 07/10/20 21:02 [From AUGMENTIN] Review of Systems Review of Systems Constitutional : No Weight loss, No Fever, No Chills, No Night Sweats, No Fatigue, No Malaise ENT/Mouth : No Hearing loss, No Ear Pain, No Nasal Congestion, No Sinus Pain, No Hoarseness, No sore throat, No Rhinorrhea, No Swallowing Difficulty Eyes: No Eye Pain, No Swelling, No Redness, No Foreign Body, No Discharge, No Vision Changes Cardiovascular : No Chest Pain, No SOB, No Dyspnea on Exertion, No Orthopnea, No Edema, No Palpitations Respiratory : No Cough, No Sputum, No Wheezing, No Smoke Exposure, No Dyspnea Gastrointestinal : + Nausea, No Vomiting, + Diarrhea, No Constipation, + abdominal Pain, No Hematochezia, No Melena Genitourinary : no irregular bleeding, No Dysuria, No Urinary Frequency, No Hematuria, No Urinary Incontinence, No Urgency, No Flank Pain, No Urinary Flow Changes, No Hesitancy Musculoskeletal : No joint pain, No Myalgias, No Joint Swelling Skin : No Skin Lesions, No rash Neuro : No Weakness, No Numbness, No Paresthesias, No Loss of Consciousness, No Dizziness, No Headache Psych : No Anxiety/Panic, No Depression, No SI/HI/AH/VH, No Social Issues, Heme/Lymph: No Bruising, No Bleeding,No Lymphadenopathy Endocrine : No Polyuria, No Polydipsia, No Temperature Intolerance Yes all other systems are reviewed and are negative [facility] Past Medical History Attestation statement: The following information was validated with the patient. Source: old records reviewed and nursing notes reviewed Medical History Diverticulitis Social History Social History Advance Directives: No Advance Directives Information Provided: No Physical Exam ED Vital Signs: Vital Signs - 24 hr 07/16/22 15:11 Temperature 97.9 F Pulse Rate 96 Respiratory Rate 18 Blood Pressure 134/90 H Pulse Oximetry 98 Oxygen Delivery Method Room Air BMI result Body Mass Index 24.3 Vital signs have been reviewed and all within normal limits Appearance: Alert. Oriented X3. No acute distress. Head: Normal external exam. Normocephalic. Eyes: PERRLA. EOMI. Conjunctiva and sclera normal. Eyelids normal. ENT: Pharynx normal. Uvula midline. Moist mucous membranes. No trismus noted. No drooling noted. No muffled voice noted. Neck: Normal inspection. Neck supple. FROM. No adenopathy. No meningeal signs. CVS: Normal heart rate and rhythm. Heart sound normal. No murmurs noted. Pulses normal throughout. Respiratory: No respiratory distress. Painless inspiration. Breath sounds normal. No wheezes/rales/rhonchi noted. Chest nontender. No accessory muscle usage noted or decreased air movement noted. Abdomen: Soft and tender to palpation to left lower quadrant. Nondistended. No guarding. No rigidity. Bowel sounds normal in all 4 quadrants. No distention noted. No organomegaly noted. No visible injury noted. No rebound tenderness. Negative Rovsing sign. Negative obturator's sign. Negative psoas sign. Negat jose l Lester sign. Back: No CVA tenderness. Full range of motion noted. Skin: Skin warm and dry. Normal skin color. Normal skin turgor. No rashes/lesions/lacerations noted. Extremities: Extremities exhibit normal range of motion. Extremities nontender. Neuro: Oriented X 3. No motor deficit. No sensory deficit. Reflexes normal. Normal steady gait. CN's II-XII intact bilaterally? Course Course Course Narrative: RME- 15:15PM - 41yoM c PMHx of diverticulitis presenting to the ER with complaints of abdominal pain with associated nausea and diarrhea that started yesterday. Reports that he thinks he might be having diverticulitis flare up. Plan: Labs, UA, CT scan abdomen pelvis without IV contrast and covid/flu swab ordered. Patient is stable will be sent back to the waiting room for further servin treatment into the emergency department. Reevaluation(s) Reevaluation #1: Patient with leukocytosis of 13,000. Otherwise all other labs are within normal limits. CT scan abdomen pelvis revealed uncomplicated diverticulitis no other acute processes. Will DC home with antibiotics and symptomatic treatment instr uctions return if any new or worsening symptoms to follow up with primary care provider. Patient understands agrees with this plan. Time: 17:42 Medical Decision Making Lab Data MDM Lab Attestation statement: I reviewed the patient's lab results. Result Diagrams: 07/16/22 15:56 07/16/22 15:56 Labs: Lab Results 07/16/22 07/16/22 12 Range/Units 15:56 15:56 15:56 WBC 13.2 H (4.8-10.8) X10*3/uL RBC 5.05 (4.60-5.80) X10*6/uL Hgb 16.0 (14.0-18.0) g/dl Hct 48.1 (42.0-52.0) % MCV 95.2 (80.0-98.0) fL MCH 31.7 (27.0-33.0) pg MCHC 33.3 (31.0-36.0) g/dl RDW 14.6 (11.0-16.0) % Plt Count 187 (160-400) X10*3/uL MPV 9.2 L (9.4-12.4) fL Immature Gran % (Auto) 0.6 H (0.0-0.4) % Neut % (Auto) 68.9 (45-73) % Lymph % (Auto) 16.7 L (20-40) % Weston % (Auto) 12.5 H (2-11) % Eos % (Auto) 0.9 (0-4) % Baso % (Auto) 0.4 (0-2) % Lymph # (Auto) 2.2 (1.2-4.9) X10*3/uL Weston # (Auto) 1.6 H (0.1-1.2) X10*3/uL Eos # (Auto) 0.1 (0.0-0.4) X10*3/uL Baso # (Auto) 0.1 (0.0-0.2) X10*3/uL Abs Immat Gran (auto) 0.08 H (0.00-0.03) X10*3/uL Absolute Neuts (auto) 9.1 H (2.0-8.3) x10*3/uL Absolute Nucleated RBC 0.000 (0.0-0.012) X10*3/uL Nucleated RBC % (auto) 0.0 (0.0-0.2) /100WBC Smear Tech's Comments VERIFIED PT 13.1 (10.0-13.1) SEC INR 1.1 (0.9-1.1) Sodium 139 (135-145) mmol/L Potassium 4.5 (3.3-5.1) mmol/L Chloride 104 (96-108) mmol/L Carbon Dioxide 27 (22-29) mmol/L Anion Gap 13 (12-20) BUN 8 L (9-16) mg/dL Creatinine 1.05 (0.5-1.4) mg/dL Estim Creat Clear Calc 84.8 Estimated GFR > 60 Random Glucose 91 (60-115) mg/dL Calcium 9.3 (8.4-10.2) mg/dL Magnesium 2.2 (1.6-2.6) mg/dL Total Bilirubin 0.8 (0.0-1.0) mg/dL AST 31 (5-37) U/L ALT 66 H (0-40) U/L Alkaline Phosphatase 74 (39-117) U/L Total Protein 7.3 (6.5-8.0) g/dL Albumin 4.3 (3.5-5.0) g/dL Radiology Impression Radiologist Impression: CT scan abdomen pelvis without IV contrast FINDINGS: LUNG BASES: Bibasilar subsegmental atelectasis in the lingula and right middle lobe.? LIVER, GALLBLADDER, AND BILIARY TREE: Diffuse hepatic hypoattenuation consistent with steatosis. Liver is normal in size. No hepatic lesion. No biliary ductal dilation. The gallbladder is unremarkable. No calcified gallstones, gallbladder wall thickening or pericholecystic inflammatory change. PANCREAS: Unremarkable.? SPLEEN: Unremarkable.? ADRENAL GLANDS: Unremarkable.? KIDNEYS AND URETERS: The kidneys are normal in size, shape, and attenuation. No hydronephrosis, hydroureter, or calculi seen. No perinephric stranding. ? BLADDER: Unremarkable.? GASTROINTESTINAL TRACT: Descending and sigmoid diverticulosis. Segmental circumferential mural thickening of the distal descending/proximal sigmoid colon with extensive pericolonic inflammatory change consistent with acute diverticulitis. There is thickening of the adjacent lateral conal and pararenal fascia. No extraluminal gas or pericolonic abscess. No pneumoperitoneum or free air. No additional bowel wall thickening. No dilated bowel loops. Normal appendix.? ABDOMINAL WALL: Metallic tacks in the lower ventral abdominal wall consistent with prior hernia repair. Fat-containing right inguinal hernia. Tiny fat-containing umbilical hernia. LYMPH NODES: No lymphadenopathy. VASCULAR: Normal caliber abdominal aorta with scant calcification. Retroaortic left renal vein noted. PELVIC VISCERA: Unremarkable.? OSSEOUS STRUCTURES: No acute fracture or suspicious osseous lesion. Moderate degenerative disc disease at L5-S1 with mild retrolisthesis. Evidence of previously removed fixation from the right proximal femur. CT/CT abdomen pelvis wo IV con IMPRESSION: 1.? Findings consistent with acute uncomplicated diverticulitis of the distal descending/proximal sigmoid colon. No evidence of perforation or abscess. 2.? Hepatic steatosis. Discharge Plan Discharge Clinical Impression: Diverticulitis Patient Disposition: Home, Self-Care Instructions: Diverticulitis (ED) Prescriptions: New levofloxacin 500 mg tablet 500 mg PO Q24H 10 Days Qty: 10 0RF metronidazole 500 mg tablet 500 mg PO TID 10 Days Qty: 30 0RF oxycodone 5 mg tablet 5 mg PO Q6H PRN (Reason: pain) Qty: 14 0RF Rx Instructions: Partial Fill upon patient request. No Action levofloxacin 500 mg tablet 500 mg PO DAILY 10 Days Qty: 10 0RF metronidazole 500 mg tablet 500 mg PO TID 10 Days Qty: 30 0RF oxycodone 5 mg tablet 5 mg PO Q4H PRN (Reason: pain) Qty: 12 0RF ciprofloxacin HCl [Cipro] 500 mg tablet 500 mg PO BID Qty: 20 0RF metronidazole [Flagyl] 500 mg tablet 500 mg PO TID Qty: 30 0RF oxycodone 5 mg tablet 5 mg PO Q6H PRN (Reason: Pain (Scale Score 4-6)) Qty: 20 0RF Referrals: ED Physician,Generic [Emergency Provider] - (Your PCP as needed) Stand Alone Forms: Work/School Release
[2022-07-16 16:04] LABS: Basophils Absolute Auto 0.1 X10*3/uL (0.0-0.2); Basophils Percent Auto 0.4 % (0-2); Eosinophils Absolute Auto 0.1 X10*3/uL (0.0-0.4); Eosinophils Percent Auto 0.9 % (0-4); Hematocrit 48.1 % (42.0-52.0); Imm Gran Abs Auto 0.08 X10*3/uL (0.00-0.03); Imm Gran Pct Auto 0.6 % (0.0-0.4); Lymphocytes Absolute Auto 2.2 X10*3/uL (1.2-4.9); Lymphocytes Percent Auto 16.7 % (20-40); MANUAL DIFF FLAG SCAN; Mean Corpuscular HGB Conc 33.3 g/dl (31.0-36.0); Mean Corpuscular Hemoglobin 31.7 pg (27.0-33.0); Mean Corpuscular Volume 95.2 fL (80.0-98.0); Mean Platelet Volume 9.2 fL (9.4-12.4); Monocytes Absolute Auto 1.6 X10*3/uL (0.1-1.2); Monocytes Percent Auto 12.5 % (2-11); Neutrophils Absolute Auto 9.1 x10*3/uL (2.0-8.3); Neutrophils Percent Auto 68.9 % (45-73); Platelet Count 187 X10*3/uL (160-400); Red Blood Count 5.05 X10*6/uL (4.60-5.80); Red Cell Distribution Width 14.6 % (11.0-16.0); SCAN SMEAR FLAG 1; White Blood Count 13.2 X10*3/uL (4.8-10.8)
[2022-07-16 16:12] LABS: INTERNATIONAL NORM RATIO 1.1 (0.9-1.1); Prothrombin Time 13.1 SEC (10.0-13.1)
[2022-07-16 16:26] LABS: SLIDE REVIEW VERIFIED
[2022-07-16 16:29] LABS: Alanine Aminotransferase 66 U/L (0-40); Albumin Level 4.3 g/dL (3.5-5.0); Alkaline Phosphatase 74 U/L (39-117); Anion Gap 13 (12-20); Aspartate Amino Transferase 31 U/L (5-37); Bilirubin Total 0.8 mg/dL (0.0-1.0); Blood Urea Nitrogen 8 mg/dL (9-16); Calcium 9.3 mg/dL (8.4-10.2); Carbon Dioxide 27 mmol/L (22-29); Chloride 104 mmol/L (96-108); Creatinine Clr Calc Pharmacy 84.8; Estimated Glomerular Filt Rate > 60; Glucose Random 91 mg/dL (60-115); Magnesium 2.2 mg/dL (1.6-2.6); Potassium 4.5 mmol/L (3.3-5.1); Sodium 139 mmol/L (135-145); Total Protein 7.3 g/dL (6.5-8.0)
== END 2022-07-16 17:44 | disposition home or self-care (01) ==
PROVIDERS: Physician Assistant Medical; Emergency Provider Internal Medicine
DX: K57.32 Diverticulitis of large intestine without perforation or abscess without bleeding (principal); R10.32 Left lower quadrant pain; Z79.899 Other long term (current) drug therapy
CPT/HCPCS: 36415; 74176; 80053; 83735; 85025; 85610; 99282; 99284

== ENCOUNTER 2024-02-25 09:03 | Outpatient (AMB) | payer MEDICAID, SELFPAY ==
[2024-02-25 09:24] VITALS: O2SAT 98
--- NOTE | 2024-02-25 09:24 | A.OFFVISCC_ITS ---
Vital Signs 02/25/24 09:24 Blood Pressure Location Rt radial Position Sitting Pulse Source Pulse Oximeter Pulse Oximetry (%) 98 Intake Visit Reasons: MAT Allergies amoxicillin [From AUGMENTIN] Allergy (Unknown, Verified 05/25/23 16:00) HIVES clavulanic acid [From AUGMENTIN] Allergy (Unknown, Verified 05/25/23 16:00) HIVES augmentin Allergy (Unknown, Uncoded 05/25/23 16:00) Medication List - Last Reconciled 02/25/24 by Genesis Kelley CNP HPI HPI MAT: Details: Patient presents as walk in to initiate treatment for alcohol use Full history obtained by RN and reviewed with patient He identifies recent negative impacts from drinking as motivator for treatment --loss of job and drivers license denies any history of treatment for AUD at any level does report history of psychiatric admissions engaged in treatment with providers denies any medical history aside from ortho surgery on his leg, which he reports is also a trigger as he drinks when he has pain Has not had a drink in over a week denies any withdrawal sx, but does report ongoing anxiety--PRN medication addresses this well [facility] Medical History Diverticulitis Review of Systems Const Reports as per HPI and Reports no additional complaints Physical Exam Vital Signs: Last Vital Signs Pulse Ox 98 02/25/24 09:24 Const General: cooperative, comfortable, no acute distress and well groomed Nutritional Appearance: average body habitus Orientation/consciousness: patient oriented x3 Limitations: no limitations Neuro General: patient oriented x3 Psych Appearance: well kempt Speech and movement: Clear speech present Affect: normal affect Attitude: cooperative and Guarded attititude/behavior present Thought process: Normal thought process present Thought content: Normal thought content present Insight: Fair insight present (Psych) Judgement: Fair judgement present (Psych) Results AMB 14 Panel Urine Drug Screen Urine Marijuana (THC) Positive Last Edit by Jeannie Dominguez RN on 02/25/24 10:07 Urine Cocaine Negative Last Edit by Jeannie Dominguez RN on 02/25/24 10:07 Urine Morphine Negative Last Edit by Jeannie Dominguez RN on 02/25/24 10:07 Urine Methamphetamine Negative Last Edit by Jeannie Dominguez RN on 02/25/24 10:07 Urine Amphetamine Negative Last Edit by Jeannie Dominguez RN on 02/25/24 10:07 Urine Benzodiazepine Negative Last Edit by Jeannie Dominguez RN on 02/25/24 10 :07 Urine Barbiturates Negative Last Edit by Jeannie Dominguez RN on 02/25/24 10:0 7 Urine Methadone Negative Last Edit by Jeannie Dominguez RN on 02/25/24 10:07 Urine Buprenorphine Negative Last Edit by Jeannie Dominguez RN on 02/25/24 10: 07 Urine Tricyclic Antidepressant Negative Last Edit by Jeannie Dominguez RN on 02/25/24 10:07 Urine MDMA Negative Last Edit by Jeannie Dominguez RN on 02/25/24 10:07 Urine Oxycodone Negative Last Edit by Jeannie Dominguez RN on 02/25/24 10:07 Urine Phencyclidine Negative Last Edit by Jeannie Dominguez RN on 02/25/24 10: 07 Urine Propoxyphene Negative Last Edit by Jeannie Dominguez RN on 02/25/24 10:0 7 Results Reviewed Results Reviewed: Laboratory Last Values POC Urine Buprenorphine Negative 02/25/24 09:59 POC Urine Morphine Negative 02/25/24 09:59 POC Urine Oxycodone Negative 02/25/24 09:59 POC Urine Methadone Negative 02/25/24 09:59 POC Urine Propoxyphene Negative 02/25/24 09:59 POC Urine Barbiturates Negative 02/25/24 09:59 POC U Tricyclic Antidpr Negative 02/25/24 09:59 POC Urine PCP Negative 02/25/24 09:59 POC Ur Amphetamines Negative 02/25/24 09:59 POC Ur Methamphetamine Negative 02/25/24 09:59 POC Urine MDMA Negative 02/25/24 09:59 POC Ur Benzodiazepine Negative 02/25/24 09:59 POC Urine Cocaine Negative 02/25/24 09:59 POC Ur Marijuana (THC) Positive 02/25/24 09:59 Assessment & Plan Assessment & Plan (1) Alcohol use disorder, severe, dependence: Code(s): F10.20 - Alcohol dependence, uncomplicated Category: Medical Plan: * naltrexone QD-reviewed medication indications and side effects and provided written information * follow up via telehealth due to transportation challenges * labs orderd Orders: Orders Complete Blood Count Auto Diff 02/25/24 F10.20 - Alcohol dependence, uncomplicated Liver Panel 02/25/24 F10.20 - Alcohol dependence, uncomplicated AMB 14 Panel Urine Drug Screen 02/25/24 F10.20 - Alcohol dependence, uncomplicated Comprehensive Met. Panel 02/25/24 F10.20 - Alcohol dependence, uncomplicated Medications: New naltrexone take 1/2 tab daily for 3 days then increase to one tab daily 50 mg PO DAILY 30 tabs 0RF MAT Intake Nursing Intake Reason for visit: Interested In vivitrol What are you taking?: Alcohol When was your last use?: last week How much?: 1-2 pints daily What is your source of income?: Unemployed (lost his job last week) What is your current relationship status?: single Current PCP: N/A Date of last visit: years ago Referral Source: Carlene Cantrell at [facility] Substance Abuse History Substance Abuse History (includes route, frequency and quantity): Marijuana and Tobacco Age of first use: 19 Social History Domestic Violence concerns: no Children: no Do you have a support system?: no Current mode of transportation?: Takes the bus Where are you currently residing?: Home with himself IV Drug Use Have you ever shared needles?: No Have you ever belonged to a needle exchange program?: No Do you buy needles at a pharmacy?: No Have you ever overdosed?: No Have you ever been hospitalized for an overdose?: No Was Naloxone administered?: No Recovery History Have you had any periods of recovery?: Yes What is your longest time in recovery?: on and off since 19 years old 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 If so, who?: Celso Rodgers and Carlene Leger at [facility] diagnosis: Bi Polar History of inpatient psychiatric hospitalization? If so, how many? Most Recent? Where?: yes twice at [facility] History of self harming thoughts?: No History of homicidal or suicidal intentions?: No Medical Conditions Endocarditis?: No Skin Infection: No Seizure related to withdrawal or overdose: No Head or brain injury: No Hepatitis A (if yes, have you been treated?): No Hepatitis B (if yes, have you been treated?): No Hepatitis C (if yes, have you been treated?): No HIV (if yes, have you been treated?): No TB (if yes, have you been treated?): No Other: No Do you have any chronic pain conditions?: yes right femur Legal History History of incarceration: No Currently on parole or probation: No Court mandated programs: No Pending court cases: Yes DCF involvement: No
== END 2024-02-25 10:45 | disposition home or self-care (01) ==
PROVIDERS: Visit Provider Nurse Practitioner Psychiatric/Mental Health
DX: F10.20 Alcohol dependence, uncomplicated (principal)
CPT/HCPCS: 99204

== ENCOUNTER 2024-02-25 09:03 | Outpatient (REF) | payer OTHER, SELFPAY ==
[2024-02-25 10:01] LABS: MANUAL DIFF FLAG NO
[2024-02-25 10:07] LABS: Basophils Percent Auto 0.6 % (0-2); Eosinophils Percent Auto 0.8 % (0-4); Hematocrit 46.9 % (42.0-52.0); Imm Gran Abs Auto 0.02 X10*3/uL (0.00-0.03); Imm Gran Pct Auto 0.4 % (0.0-0.4); Lymphocytes Absolute Auto 1.5 X10*3/uL (1.2-4.9); Lymphocytes Percent Auto 28.4 % (20-40); Mean Corpuscular HGB Conc 34.1 g/dl (31.0-36.0); Mean Corpuscular Hemoglobin 33.3 pg (27.0-33.0); Mean Corpuscular Volume 97.7 fL (80.0-98.0); Mean Platelet Volume 9.2 fL (9.4-12.4); Monocytes Absolute Auto 0.7 X10*3/uL (0.1-1.2); Monocytes Percent Auto 13.3 % (2-11); Neutrophils Absolute Auto 2.9 x10*3/uL (2.0-8.3); Neutrophils Percent Auto 56.5 % (45-73); Platelet Count 178 X10*3/uL (160-400); Red Cell Distribution Width 13.7 % (11.0-16.0); White Blood Count 5.2 X10*3/uL (4.8-10.8)
[2024-02-25 11:08] LABS: Alanine Aminotransferase 41 U/L (0-40); Albumin Level 4.5 g/dL (3.5-5.0); Alkaline Phosphatase 62 U/L (39-117); Anion Gap 12 (12-20); Aspartate Amino Transferase 32 U/L (5-37); Bilirubin Direct 0.2 mg/dL (0.0-0.5); Bilirubin Total 0.6 mg/dL (0.0-1.0); Blood Urea Nitrogen 8 mg/dL (9-16); Calcium 9.4 mg/dL (8.4-10.2); Carbon Dioxide 25 mmol/L (22-29); Chloride 107 mmol/L (96-108); Estimated Glomerular Filt Rate > 60; Glucose Random 101 mg/dL (60-115); Sodium 140 mmol/L (135-145); Total Protein 7.7 g/dL (6.5-8.0)
== END 2024-02-25 09:04 | disposition home or self-care (01) ==
LOC: HO.LAB 09:03
PROVIDERS: Visit Provider Nurse Practitioner Psychiatric/Mental Health
DX: F10.20 Alcohol dependence, uncomplicated (principal)
CPT/HCPCS: 36415; 80053; 80305; 82248; 85025; 99202

== ENCOUNTER 2024-03-10 08:39 | Outpatient (AMB) | payer MEDICAID, SELFPAY ==
--- NOTE | 2024-03-10 08:40 | A.OFFVISCC_ITS ---
Intake Visit Reasons: MAT Allergies amoxicillin [From AUGMENTIN] Allergy (Unknown, Verified 05/25/23 16:00) HIVES clavulanic acid [From AUGMENTIN] Allergy (Unknown, Verified 05/25/23 16:00) HIVES augmentin Allergy (Unknown, Uncoded 05/25/23 16:00) HPI HPI MAT: Details: Patient presents for AUD treatment follow up Started Naltrexone --tolerating medication Would like to transition to Vivitrol Has been going to AA meetings Will be starting a new job at [employer] Reviewed lab work [facility] Medical History Diverticulitis Review of Systems Const Reports as per HPI and Reports no additional complaints Telehealth Telehealth Telehealth Platform: Telephone Location of provider rendering services: practice address Location of patient: address on file Patient Identification confirmed using: Name, : Yes Telehealth method: voice only Patient verbally consented to treatment: Yes Patient verbally consented to billing insurance company: Yes Minutes spent on Phone/Video with Pt.: 15 Assessment & Plan Assessment & Plan (1) Alcohol use disorder, severe, dependence: Code(s): F10.20 - Alcohol dependence, uncomplicated Category: Medical Plan: * continue naltrexone * will order vivtrol * follow up 4 weeks
== END 2024-03-10 09:13 | disposition home or self-care (01) ==
PROVIDERS: Visit Provider Nurse Practitioner Psychiatric/Mental Health
DX: F10.20 Alcohol dependence, uncomplicated (principal)
CPT/HCPCS: 99213

== ENCOUNTER → 2024-03-10 08:39 | Outpatient (BNVA) | payer OTHER, SELFPAY | PROVIDERS: Visit Provider Nurse Practitioner Psychiatric/Mental Health ==

== ENCOUNTER 2024-04-13 09:36 | Outpatient (AMB) | payer MEDICAID, SELFPAY ==
--- NOTE | 2024-04-13 09:37 | AM.OFFVISNUR ---
Intake Visit Reasons: Vivitrol Injection Allergies amoxicillin [From AUGMENTIN] Allergy (Unknown, Verified 05/25/23 16:00) HIVES clavulanic acid [From AUGMENTIN] Allergy (Unknown, Verified 05/25/23 16:00) HIVES augmentin Allergy (Unknown, Uncoded 05/25/23 16:00) Nursing Note Patient Presents for his first Injection. Current Dose 380mg . Given in the LG with no noted or stated complications. This is his fist injection, he was educated on signs and symptoms of reaction to look for. He verbally agrees to calling [facility] with any concerns or questions. Patient will follow up with [facility] RN in 4 weeks for next injection and follow up. Office Meds Vivitrol 380 mg intramuscular suspension,extended release Performing Provider: Genesis Kelley CNP Performing Location: [facility] Administered by: Jeannie Dominguez RN on 04/13/24 09:43 Dose Route Admin Location Dispensed Lot Number Expiration Date [facility] Machine [employer]aster 380 mg IM LG 380 mg [id number] 09/01/26 26989-152-19 Vinny Assessment & Plan Assessment & Plan Orders: Orders AMB Naltrexone Injection Patient Supplied (NC) Today F10.20 - Alcohol dependence, uncomplicated
== END 2024-04-13 10:00 | disposition home or self-care (01) ==
DX: F10.20 Alcohol dependence, uncomplicated (principal)

== ENCOUNTER → 2024-04-13 09:36 | Outpatient (BNVA) | payer MEDICAID, SELFPAY | DX: F10.20 Alcohol dependence, uncomplicated (principal); Z79.899 Other long term (current) drug therapy | CPT/HCPCS: 96372; J2315 ==

== ENCOUNTER 2024-05-11 09:56 | Outpatient (AMB) | payer OTHER, SELFPAY ==
--- NOTE | 2024-05-11 11:20 | AM.OFFVISNUR ---
Intake Visit Reasons: Vivitrol Injection Allergies amoxicillin [From AUGMENTIN] Allergy (Unknown, Verified 05/25/23 16:00) HIVES clavulanic acid [From AUGMENTIN] Allergy (Unknown, Verified 05/25/23 16:00) HIVES augmentin Allergy (Unknown, Uncoded 05/25/23 16:00) Nursing Note Patient Presents for Vivitrol Injection. Current Dose 380. Given in the LG with no noted or stated complications. Denies any issues with previous injection. Denies symptoms, and denies any break through cravings. Last appt with provider was last month, will follow up with RN in 4 weeks for injection. Will need to see provider for check in july . Office Meds Vivitrol 380 mg intramuscular suspension,extended release Performing Provider: Genesis Kelley CNP Performing Location: [facility] Administered by: Jeannie Dominguez RN on 05/16/24 16:06 Dose Route Admin Location Dispensed Lot Number Expiration Date [facility] Transition Coach 380 mg IM LG 380 mg 2024-1024T 11/29/26 74075-104-31 [employer] Assessment & Plan Assessment & Plan Orders: Orders AMB Naltrexone Injection Patient Supplied (NC) 05/11/24 F10.20 - Alcohol dependence, uncomplicated Medications: New Vivitrol ER (naltrexone microspheres) 380 mg IM ONCE 1 ea 0RF NS F10.20 - Alcohol dependence, uncomplicated
== END 2024-05-11 11:15 | disposition home or self-care (01) ==
DX: F10.20 Alcohol dependence, uncomplicated (principal)

== ENCOUNTER → 2024-05-11 09:56 | Outpatient (BNVA) | payer OTHER, MEDICAID, SELFPAY | DX: F10.20 Alcohol dependence, uncomplicated (principal); Z51.81 Encounter for therapeutic drug level monitoring; Z79.899 Other long term (current) drug therapy | CPT/HCPCS: 96372; J2315 ==

== ENCOUNTER 2024-06-08 09:07 | Outpatient (AMB) | payer OTHER, SELFPAY ==
--- NOTE | 2024-06-08 09:18 | AM.OFFVISNUR ---
Intake Visit Reasons: Vivitrol Injection Allergies amoxicillin [From AUGMENTIN] Allergy (Unknown, Verified 05/25/23 16:00) HIVES clavulanic acid [From AUGMENTIN] Allergy (Unknown, Verified 05/25/23 16:00) HIVES augmentin Allergy (Unknown, Uncoded 05/25/23 16:00) Nursing Note Patient Presents for vivitrol Injection. Current Dose 380mg . Given in the LG with no noted or stated complications. Denies any issues with previous injection. Denies symptoms, and denies any break through cravings. Will follow up with RN in 4 weeks for injection. Will need to see provider for check in in July . Office Meds Vivitrol 380 mg intramuscular suspension,extended release Performing Provider: Genseis Kelley CNP Performing Location: [facility] Administered by: Jeannie Dominguez RN on 06/08/24 09:19 Dose Route Admin Location Dispensed Lot Number Expiration Date [facility] New Accounts Banking Representative 380 mg IM LG 380 mg 2024-1027T 12/30/26 45061-773-33 [employer] Assessment & Plan Assessment & Plan Orders: Orders AMB Naltrexone Injection Patient Supplied (NC) Today F10.20 - Alcohol dependence, uncomplicated Medications: New Vivitrol ER (naltrexone microspheres) 380 mg IM ONCE 1 ea 0RF NS F10.20 - Alcohol dependence, uncomplicated
== END 2024-06-08 09:21 | disposition home or self-care (01) ==
LOC: HO.HCC 09:07
DX: F10.20 Alcohol dependence, uncomplicated (principal)

== ENCOUNTER → 2024-06-08 09:07 | Outpatient (BNVA) | payer OTHER, SELFPAY | DX: F10.20 Alcohol dependence, uncomplicated (principal); Z79.899 Other long term (current) drug therapy | CPT/HCPCS: 96372; J2315 ==

== ENCOUNTER 2024-07-17 12:57 | Outpatient (AMB) | payer OTHER, SELFPAY ==
--- NOTE | 2024-07-17 13:56 | AM.OFFVISNUR ---
Intake Visit Reasons: MAT/Vivitrol Injection Allergies amoxicillin [From AUGMENTIN] Allergy (Unknown, Verified 05/25/23 16:00) HIVES clavulanic acid [From AUGMENTIN] Allergy (Unknown, Verified 05/25/23 16:00) HIVES augmentin Allergy (Unknown, Uncoded 05/25/23 16:00) Assessment & Plan Assessment & Plan Medications: Changed From naltrexone take 1/2 tab daily for 3 days then increase to one tab daily 50 mg PO DAILY 30 tabs 0RF To naltrexone 50 mg PO DAILY 30 tabs 0RF
[2024-07-17 13:57] VITALS: BP 102/76; PULSE 84; RESP 18; O2SAT 96
--- NOTE | 2024-07-17 14:51 | AM.OFFVISNUR ---
Vital Signs 07/17/24 13:57 BP 102/76 Blood Pressure Location Rt brachial Position Sitting Respiration 18 Pulse 84 Pulse Source Pulse Oximeter Pulse Oximetry (%) 96 Intake Visit Reasons: MAT/Vivitrol Injection Allergies amoxicillin [From AUGMENTIN] Allergy (Unknown, Verified 05/25/23 16:00) HIVES clavulanic acid [From AUGMENTIN] Allergy (Unknown, Verified 05/25/23 16:00) HIVES augmentin Allergy (Unknown, Uncoded 05/25/23 16:00) Assessment & Plan Assessment & Plan Medications: Changed From naltrexone take 1/2 tab daily for 3 days then increase to one tab daily 50 mg PO DAILY 30 tabs 0RF To naltrexone 50 mg PO DAILY 30 tabs 0RF
--- NOTE | 2024-07-17 15:05 | A.OFFVISCC_ITS ---
Vital Signs 07/17/24 13:57 BP 102/76 Blood Pressure Location Rt brachial Position Sitting Respiration 18 Pulse 84 Pulse Source Pulse Oximeter Pulse Oximetry (%) 96 Intake Visit Reasons: MAT/Vivitrol Injection Allergies amoxicillin [From AUGMENTIN] Allergy (Unknown, Verified 05/25/23 16:00) HIVES clavulanic acid [From AUGMENTIN] Allergy (Unknown, Verified 05/25/23 16:00) HIVES augmentin Allergy (Unknown, Uncoded 05/25/23 16:00) HPI HPI MAT/Vivitrol Injection: Details: Patient presents for follow up and vivitrol injection Reports he is tolerating injection, and was unsure if it was effective, until he was overdue for it and noted that cravings started to present. Advised patient that he can take PRN oral naltrexone towards the end of the month to assist with these sx He states that he continues to abstain from alcohol Still working at [employer] Review of Systems Const Reports as per HPI and Reports no additional complaints Physical Exam Vital Signs: Last Vital Signs Pulse 84 07/17/24 13:57 Resp 18 07/17/24 13:57 BP 102/76 07/17/24 13:57 Pulse Ox 96 07/17/24 13:57 Const General: cooperative, comfortable, no acute distress and well groomed Nutritional Appearance: average body habitus Orientation/consciousness: patient oriented x3 Limitations: no limitations Neuro General: patient oriented x3 Psych Appearance: well kempt Speech and movement: Clear speech present Affect: normal affect Attitude: cooperative and Guarded attititude/behavior present Thought process: Normal thought process present Thought content: Normal thought content present Insight: Fair insight present (Psych) Judgement: Fair judgement present (Psych) Office Meds Vivitrol 380 mg intramuscular suspension,extended release Performing Provider: Genesis Kelley CNP Performing Location: [facility] Administered by: Lisbeth Billingsley RN on 07/17/24 15:22 Dose Route Admin Location Dispensed Lot Number Expiration Date [facility] Broom Builder 380 mg IM RG 380 mg 2024-3012T 12/30/26 [id number] [employer] Comments: Patient tolerated injection well. No complication from past injections. Patient educated on signs and symptoms of infection, told to call [facility] if any noted, verbally agreed. Patient to make an appointment for 4 weeks for follow-up injection. Assessment & Plan Assessment & Plan (1) Alcohol use disorder, severe, dependence: Code(s): F10.20 - Alcohol dependence, uncomplicated Category: Medical Plan: * tolerated injection * PO naltrexone refilled * follow up 4 weeks Orders: Orders AMB Naltrexone Injection Patient Supplied (NC) Today F10.20 - Alcohol dependence, uncomplicated Medications: Changed From naltrexone take 1/2 tab daily for 3 days then increase to one tab daily 50 mg PO DAILY 30 tabs 0RF To naltrexone 50 mg PO DAILY 30 tabs 0RF PFS Medical History Diverticulitis
== END 2024-07-17 13:42 | disposition home or self-care (01) ==
PROVIDERS: Visit Provider Nurse Practitioner Psychiatric/Mental Health
DX: F10.20 Alcohol dependence, uncomplicated (principal)
CPT/HCPCS: 99213

== ENCOUNTER → 2024-07-17 12:57 | Outpatient (BNVA) | payer OTHER, SELFPAY | PROVIDERS: Visit Provider Nurse Practitioner Psychiatric/Mental Health | DX: F10.20 Alcohol dependence, uncomplicated (principal); Z51.81 Encounter for therapeutic drug level monitoring; Z79.899 Other long term (current) drug therapy | CPT/HCPCS: 96372; 99212; J2315 ==

== ENCOUNTER 2024-08-18 08:48 | Outpatient (AMB) | payer OTHER, SELFPAY ==
--- NOTE | 2024-08-18 08:54 | AM.OFFVISNUR ---
Intake Visit Reasons: Vivitrol Injection Allergies amoxicillin [From AUGMENTIN] Allergy (Unknown, Verified 05/25/23 16:00) HIVES clavulanic acid [From AUGMENTIN] Allergy (Unknown, Verified 05/25/23 16:00) HIVES augmentin Allergy (Unknown, Uncoded 05/25/23 16:00) Nursing Note Patient Presents for vivitrol Injection. Current Dose 380mg . Given in the w ithLG no noted or stated complications. Denies any issues with previous injection. Denies symptoms, and denies any break through cravings. Last appt with provider was last month in july , will follow up with RN in 4 weeks for injection. Will need to see provider for check in September . Office Meds Vivitrol 380 mg intramuscular suspension,extended release Performing Provider: Genesis Kelley CNP Performing Location: [facility] Administered by: Jeannie Dominguez RN on 08/18/24 10:03 Dose Route Admin Location Dispensed Lot Number Expiration Date [facility] Probation Officer 380 mg IM LG 380 mg 2024-1038T 03/01/27 84533-415-18 [employer] Assessment & Plan Assessment & Plan Orders: Orders AMB Naltrexone Injection Patient Supplied (NC) Today F10.20 - Alcohol dependence, uncomplicated
== END 2024-08-18 10:08 | disposition home or self-care (01) ==
DX: F10.20 Alcohol dependence, uncomplicated (principal)

== ENCOUNTER → 2024-08-18 08:48 | Outpatient (BNVA) | payer OTHER, SELFPAY | DX: F10.20 Alcohol dependence, uncomplicated (principal) | CPT/HCPCS: 96372; J2315 ==

== ENCOUNTER 2024-09-21 09:42 | Outpatient (AMB) | payer OTHER, SELFPAY ==
[2024-09-21 09:00] VITALS: BP 120/90; PULSE 88; O2SAT 98
--- NOTE | 2024-09-21 09:44 | AM.OFFVISNUR ---
Vital Signs 09/21/24 09:00 BP 120/90 H Position Sitting Pulse 88 Pulse Source Pulse Oximeter Pulse Oximetry (%) 98 Intake Visit Reasons: MAT Allergies amoxicillin [From AUGMENTIN] Allergy (Unknown, Verified 05/25/23 16:00) HIVES clavulanic acid [From AUGMENTIN] Allergy (Unknown, Verified 05/25/23 16:00) HIVES augmentin Allergy (Unknown, Uncoded 05/25/23 16:00) Nursing Note Patient Presents for vivitrol Injection. Given in the LG with no noted or stated complication. Denies any issues with previous injection. Denies symptoms, and denies any break through cravings. Will follow up with RN in 4 weeks for injection. Office Meds Vivitrol 380 mg intramuscular suspension,extended release Performing Provider: Genesis Kelley CNP Performing Location: [facility] Administered by: Jeannie Dominguez RN on 09/22/24 15:03 Dose Route Admin Location Dispensed Lot Number Expiration Date [facility] Labor Law Professor 380 mg IM LG 380 mg 2024-1041T 04/01/27 75910-810-83 [employer] Assessment & Plan Assessment & Plan Orders: Orders AMB Naltrexone Injection Patient Supplied (NC) 09/21/24 F10.20 - Alcohol dependence, uncomplicated Medications: New Vivitrol ER (naltrexone microspheres) 380 mg IM ONCE 1 ea 0RF NS F10.20 - Alcohol dependence, uncomplicated Coding
--- OUTSIDE RECORDS SUMMARY | 2024-09-21 10:31 | XMS_ITS | Clinical Summary ---
Author Organization [facility] Address [address] [place] [id number] Care Team Providers Care Core Loader Name Role Phone Slava Medrano MD Primary Care Provider Allergies No known active allergies Medications OLANZapine (ZyPREXA) 10 mg tablet Take 1 Tab by mouth 2 times daily. 11/21/2019 Active traZODone (DESYREL) 100 mg tablet Take 100 mg by mouth at bedtime. Active Active Problems Problem Noted Date Diagnosed Date Alcohol abuse 01/23/2021 Agitation 12/16/2020 Anger 12/16/2020 Anxiety disorder 12/16/2020 Immunizations Name Administration Dates Next Due Influenza Quadravalent, MDCK , 0.5ml, preservative free (Flucelvax) 6mo and older 04/07/2019 Tdap Tetanus diptheria acell ular pertussis (Boostrix; Adacel) 7yo and older 03/18/2021 Surgical History Surgery Date Site/Laterality Comments LEG SURGERY PROCEDURE: HISTORICAL LEG SURGERY; COMMENT: age [age] R leg multiple surgeries [facility] Medical History Medical History Date Comments Anger DX:Anger Anxiety disorder DX:Anxiety diso rder Agitation DX:Agitation Family History Relation Name Status Comments Father Alive Mother Alive Social History Tobacco Use Types Packs/Day Years Used Date Smoking Tobacco: Every Day Cigarettes 1 9.1 Started: 08/02/2015 Smokeless Tobacco: Never Alcohol Use Standard Drinks/Week Comments Yes 0 (1 standard drink = 0.6 oz pur e alcohol) Sex and Gender Information Value Date Recorded Sex Assigned at Not on file Legal Sex Male 4:41 PM EST Gender Identity Not on file Sexual Orientation Not on file Obstetrics History Last Filed Vital Signs Vital Sign Reading Time Taken Comments Blood Pressure 130/90 11/30/2022 4:02 PM EDT Pulse - - Temperature - - Respiratory Rate - - Oxygen Saturation - - Inhaled Oxygen Concentration - - Weight 83.5 kg (184 lb) 11/30/2022 4:02 PM EDT Height 170.2 cm (5' 7 ) 11/30/2022 4:02 PM EDT Body Mass Index 28.82 11/30/2022 4:02 PM EDT Plan of Treatment Health Maintenance Due Date Last Done Comments Hepatitis A Vaccines (1 of 2 - Risk 2-dose series) 1997 Hepatitis B Vaccines (1 of 3 - 19+ 3-dose series) 1997 Pneumococcal Vaccine: Pediat rics (0 to 5 Years) and At-Risk Patients (6 to 64 Years) (1 of 2 - PCV) 1997 Cholesterol Screening (Lipid Panel) 07/01/2022 Colorectal Cancer Screening: Colonoscopy 07/01/2022 Depression Screening 07/01/2022 HIV Screening 07/01/2022 Hepatitis C Screening 07/01/2022 Social Influencers of Health Screening 07/01/2022 COVID-19 Vaccine (1 - 2023-2 5 season) 2024 Influenza Vaccine (#1) 2024 04/07/2019 DTaP,Tdap,and Td Vaccines (2 - Td or Tdap) 03/18/2031 03/18/2021 HIB Vaccines Aged Out No longer eligi ble based on patient's age to complete this topic HPV Vaccines Aged Out No longer eligi ble based on patient's age to complete this topic IPV Vaccines Aged Out No longer eligi ble based on patient's age to complete this topic MMR Vaccines Aged Out No longer eligi ble based on patient's age to complete this topic Meningococcal ACWY Vaccine Aged Out N o longer eligible based on patient's age to complete this topic Meningococcal B Vacine Aged Out No lo nger eligible based on patient's age to complete this topic RSV Immunization Patients Un ramses 20 months Aged Out No longer eligible b ased on patient's age to complete this topic Varicella Vaccines Aged Out No longer eligible based on patient's age to complete this topic Care Teams Core Loader Relationship Specialty Start Date End Date Slava Medrano MD [address] [place] [id number] [facility] - General 10/06/22
== END 2024-09-21 13:21 | disposition home or self-care (01) ==
DX: F10.20 Alcohol dependence, uncomplicated (principal)

== ENCOUNTER → 2024-09-21 09:42 | Outpatient (BNVA) | payer OTHER, SELFPAY | DX: F10.20 Alcohol dependence, uncomplicated (principal) | CPT/HCPCS: 96372; J2315 ==

== ENCOUNTER 2024-11-14 09:18 | Outpatient (AMB) | payer OTHER, SELFPAY ==
--- NOTE | 2024-11-14 09:33 | AM.OFFVISNUR ---
Intake Visit Reasons: Vivitrol Allergies amoxicillin [From AUGMENTIN] Allergy (Unknown, Verified 05/25/23 16:00) HIVES clavulanic acid [From AUGMENTIN] Allergy (Unknown, Verified 05/25/23 16:00) HIVES augmentin Allergy (Unknown, Uncoded 05/25/23 16:00) Nursing Note Patient Presents for Vivitrol Injection. Current Dose 380mg Given in the RG with no noted or stated complications. Denies any issues with previous injection. Denies symptoms, and denies any break through cravings. Office Meds Vivitrol 380 mg intramuscular suspension,extended release Performing Provider: Deanne Lima MD Performing Location: [facility] Administered by: Jeannie Dominguez RN on 11/14/24 09:34 Dose Route Admin Location Dispensed Lot Number Expiration Date [facility] County Library Director 380 mg IM RG 380 mg [id number] 04/01/27 03879-934-02 Proformative Assessment & Plan Assessment & Plan Orders: Orders AMB Naltrexone Injection Patient Supplied (NC) Today F10.20 - Alcohol dependence, uncomplicated Medications: New Vivitrol ER (naltrexone microspheres) 380 mg IM ONCE 1 ea 0RF NS F10.20 - Alcohol dependence, uncomplicated Coding
--- OUTSIDE RECORDS SUMMARY | 2024-11-14 10:11 | XMS_ITS ---
Demographics Address [address] [place] [address] Home Phone Mobile Phone Preferred Language en Marital Status Single Taoist Affiliation Unknown Race White Ethnic Group Not or Lati no Author Organization [address] Address [address] [place] [address] Phone Care Team Providers Care Accounting Lecturer Name Role Phone Slava Medrano MD Primary Care Provider [phone] [facility] - Transportation Status:Ongoing (Active) Start date:10/24/2024 Enrollment date:10/24/2024 Related social drivers of health:Transportation Related program episode:Community Health Worker Program (Active) Overview Community Health Worker Program - Transportation Service Episode Case Team Name Relationship Phone Carmen Quesada Community Health Worker(Responsi ble Staff) Continued Care and Services Coordination
--- OUTSIDE RECORDS SUMMARY | 2024-11-14 10:12 | XMS_ITS ---
Author Organization [address] Address [address] [place] [phone] Phone Care Team Providers Care Worldwide Chief Creative Officer Name Role Phone Slava Medrano MD Primary Care Provider [phone] Transitional Care Management Status:Ongoing (Active) Start date:10/23/2024 Enrollment date:10/23/2024 Enrollment reason:Identified using hospital discharge data Case Team Name Relationship Phone Char Kunz RN Care Manager(Responsible Staff) Continued Care and Services Coordination
--- OUTSIDE RECORDS SUMMARY | 2024-11-14 10:12 | XMS_ITS | Encounter Summary ---
Author Organization [facility] Address [address] [place] [address] Care Team Providers Care Semiconductor Engineer Name Role Phone Slava Medrano MD Primary Care Provider [phone] Reason for Visit * Reason Onset Date Comments CT-SCAN ORDER 11/08/2024 Encounter Details Date Type Department Care Team ([facility] st Contact Info) Description 11/08/2024 Telephone Adult Medicine [facility] [address] [place] [address] [place], [place] CT-SCAN ORDER Social History Tobacco Use Types Packs/Day Years Used Date Smoking Tobacco: Every Day Cigarettes 1 9.3 Started: 08/02/2015 Smokeless Tobacco: Never Alcohol Use Standard Drinks/Week Comments Yes 0 (1 standard drink = 0.6 oz pur e alcohol) Housing Instability Answer Date Recorde d Are you worried that in the next 2 months you may not have stable housing? No 10/23/2024 Food Access & Nutrition Answer Date Rec orded Do you have access to a vari ety of food including fruits and vegetables? No 10/23/2024 Access to Healthcare Answer Date Record ed Within the last 3 months, ho w many times did you visit the emergency department for your medical care? 1 10/23/2024 Health Literacy Answer Date Recorded How often do you need to hav e someone help you when you read instructions, pamphlets, or other written material from your doctor or pharmacy? Never 10/23/2024 Caregiver: How often do you need to have someone help you when you read instructions, pamphlets, or other written material from your doctor or pharmacy? Not on file 10/23/2024 Financial Risk Answer Date Recorded How hard is it for you to pa y for the very basics like food, housing, medical care, and air conditioning / heating? Somewhat hard 10/23/2024 Transportation Answer Date Recorded Has the lack of transportati on kept you from meetings, work, or from getting things needed for daily living? Yes Has the lack of transportati on kept you from medical appointments or from getting medications? No 10/23/2024 Social Isolation Answer Date Recorded How often do you feel lonely or isolated from th ose around you? Often 10/23/2024 Food Risk Answer Date Recorded Within the past 12 months we worried whether our food would run out before we got money to buy more. Sometimes true 025 Within the past 12 months th e food we bought just didn't last and we didn't have money to get more. Sometimes true 10/23/2024 Dependent Care Answer Date Recorded Do you need help finding or paying for care for your loved ones. For example, child care giver or elderly care for an older adult? No 10/23/2024 Education Answer Date Recorded Do you think completing more education or training, like finishing a GED, going to college, or learning a trade, would be helpful for you? No 10/23/2024 Employment and Income Answer Date Recor ded During the last four weeks, have you been actively looking for work? No 10/23/2024 Living Situation Answer Date Recorded What is your living situation? 0 10/23/2024 Sex and Gender Information Value Date Recorded Sex Assigned at Not on file Legal Sex Male 4:41 PM EST Gender Identity Not on file Sexual Orientation Not on file documented as of this encounter Progress Notes * Chloé Avilez MA - 11/09/2024 12:[address] not ordered by our facility will discuss with [facility] at appt tomorrow * Odilia Lam MA - 11/08/2024 4:52 PM EDT Patient received approval for the ct-scan,patient is ready to get it scheduled.Please advise documented in this encounter Plan of Treatment Not on file documented as of this encounter Visit Diagnoses Not on filedocumented in this encounter Care Teams Semiconductor Engineer Relationship Specialty Start Date End Date Slava Medrano MD [address] [place] [id number] PCP - General 10/06/22 documented as of this encounter
--- OUTSIDE RECORDS SUMMARY | 2024-11-14 10:12 | XMS_ITS ---
Demographics Address [address] [facility] [address] [place] [address] Home Phone Mobile Phone Preferred Language en Marital Status Single Restoration Affiliation Unknown Race White Ethnic Group Not or Lati no Author Organization [address] Address [address] [place] [address] Phone Care Team Providers Care Certified Court/Medical Interpreter Name Role Phone Slava Medrano MD Primary Care Provider [phone] [facility] - Food Insecurity Status:Ongoing (Active) Start date:10/24/2024 Enrollment date:10/24/2024 Enrollment reason:Referred by Care Team Related social drivers of health:Food Risk Related program episode:Community Health Worker Program (Active) Overview Community Health Worker Program - Food Insecurity Service Episode Case Team Name Relationship Phone Carmen Quesada Community Health Worker(Responsi ble Staff) Continued Care and Services Coordination
--- OUTSIDE RECORDS SUMMARY | 2024-11-14 10:12 | XMS_ITS ---
Demographics Address [address] [place] [address] Home Phone Mobile Phone Preferred Language en Marital Status Single Taoist Affiliation Unknown Race White Ethnic Group Not or Lati no Author Organization [address] Address [address] [place] [address] Phone Care Team Providers Care Business Insight And Analytics Manager Name Role Phone Slava Medrano MD Primary Care Provider [phone] Community Health Worker Program Status:Ongoing (Active) Start date:10/24/2024 Enrollment date:10/24/2024 Enrollment reason:Referred by Care Team Current support & services provided:Adult Related service episodes:[facility] - Food Insecurity (Active), [facility] - Transportation (Active), [facility] - Social Service (Closed) Overview Community Health Worker Program Case Team Name Relationship Phone Carmen Quesada Community Health Worker(Jackyi nir Staff) Continued Care and Services Coordination
--- OUTSIDE RECORDS SUMMARY | 2024-11-14 10:13 | XMS_ITS | Clinical Summary ---
Demographics Address [address] [place] [address] Home Phone Mobile Phone Preferred Language en Marital Status Single Episcopal Affiliation Unknown Race White Ethnic Group Not or Lati no Author Organization [place] [address] [facility] Building Address [address] [facility] [place] [address] Phone Care Team Providers Care Chief Librarian Branch Name Role Phone Slava Medrano MD Primary Care Provider [phone]- [phone] Allergies No known active allergies Medications OLANZapine (ZyPREXA) 10 mg tablet Take 1 Tab by mouth 2 times daily. 11/21/2019 Active traZODone (DESYREL) 100 mg tablet Take 100 mg by mouth at bedtime. Active LORazepam (ATIVAN) 1 mg tablet Take 1 tablet (1 mg total) by mouth. 10/13/2024 Active amoxicillin (AMOXIL) 875 mg tablet Take 1 tablet (875 mg total) by mouth every 12 (twelve) hours. for 10 days 04/23/2024 Active ibuprofen (ADVIL,MOTRIN) 800 mg tablet Take 1 tablet (800 mg total) by mouth every 6 (six) hours if needed. 10/20/2024 Tylenol Extra Strength 500 mg tablet Take 1 tablet (500 mg total) by mouth every 6 (six) hours if needed. 10/20/2024 Active Problems Problem Noted Date Diagnosed Date Alcohol abuse 01/23/2021 Agitation 12/16/2020 Anger 12/16/2020 Anxiety disorder 12/16/2020 Encounters Date Type Department Care Team Description 11/08/2024 Telephone Adult [address] [phone] Odilia Lam MA CT-SCAN ORDER 11/02/2024 Telephone Adult [address] [phone] Slava Medrano MD Forms/questionnaire s 10/26/2024 10:00 AM EDT Lab Draw [address] Hospital discharge follow-up; Liver abscess; Streptococcal bacteremia; Screening for diabetes mellitus (DM) 10/26/2024 9:30 AM EDT Office Visit Adult [address] [phone] Slava Medrano MD Hospital discharge follow-up (Primary Dx); Liver abscess; Streptococcal bacteremia; Bipolar affective disorder, current episode mixed, current episode severity unspecified (CMS/HCC V24, CMS/HCC V28); Screening for diabetes mellitus (DM) 10/24/2024 Telephone [facility] [address] [place] [phone] [place], [place] 10/23/2024 Telephone Adult [address] [phone] Tracy Oscar RN hosp f/u 09/30/2024 1:58 PM EST - 09/30/2024 11:59 PM EST Hospital Encounter Xray - [address] [phone] Subacute cough Discharge Disposition: Home or Self Care 09/30/2024 1:45 PM EST Office Visit Walk-In Clinic - [address] [phone] Nory Peguero NP Subacute cough (Primary Dx); Acute non-recurrent maxillary sinusitis from Last 3 Months Immunizations Name Administration Dates Next Due Influenza Quadravalent, MDCK , 0.5ml, preservative free (Flucelvax) 6mo and older 04/07/2019 Tdap Tetanus diptheria acell ular pertussis (Boostrix; Adacel) 7yo and older 03/18/2021 Surgical History Surgery Date Site/Laterality Comments LEG SURGERY PROCEDURE: HISTORICAL LEG SURGERY; COMMENT: age 15-20 R leg multiple surgeries [facility] Medical History Medical History Date Comments Anger DX:Anger Anxiety disorder DX:Anxiety diso rder Agitation DX:Agitation Family History Relation Name Status Comments Father Alive Mother Alive Social History Tobacco Use Types Packs/Day Years Used Date Smoking Tobacco: Every Day Cigarettes 1 9.3 Started: 08/02/2015 Smokeless Tobacco: Never Tobacco Cessation:Ready to Q uit: Not Asked; Counseling Given: Not Answered Alcohol Use Standard Drinks/Week Comments Yes 0 [...] for your loved ones. For example, child life therapist or elderly care for an older adult? [...] Sign Reading Time Taken Comments Blood Pressure 104/66 10/26/2024 9:15 AM EDT Pulse 88 10/26/2024 9:15 AM EDT Temperature 36.2 ??C (97.1 ??F) 10/26/2024 9:15 AM ED T Respiratory Rate 15 10/26/2024 9:15 AM EDT Oxygen Saturation 98% 09/30/2024 1:37 PM EST Inhaled Oxygen Concentration - - Weight 73.9 kg (163 lb) 10/26/2024 9:15 AM EDT Height 170.2 cm (5' 7 ) 11/30/2022 4:02 PM EDT Body Mass Index 25.53 11/30/2022 4:02 PM EDT Plan of Treatment Health Maintenance Due Date Last Done Comments Hepatitis A Vaccines (1 of 2 - Risk 2-dose series) 1997 Hepatitis B Vaccines (1 of 3 - 19+ 3-dose series) 1997 Pneumococcal Vaccine: Pediatrics (0 to 5 Years) and At-Risk Patients (6 to 64 Years) (1 of 2 - PCV) 1997 Cholesterol Screening (Lipid Panel) 07/01/2022 Colorectal Cancer Screening: Colonoscopy 07/01/2022 Depression Screening 07/01/2022 HIV Screening 07/01/2022 Hepatitis C Screening 07/01/2022 COVID-19 Vaccine (3 - 2023-2 5 season) 2024 02/18/2021, 01/21/2021 Influenza Vaccine (Season Ended) 2025 04/07/2019, 05/07/2018 Social Influencers of Health Screening 10/23/2025 10/23/2024 DTaP,Tdap,and Td Vaccines (4 - Td or Tdap) 08/09/2031 08/09/2021, 03/18/2021, 01/12/2012 HIB Vaccines Aged Out No longer eligi [...] age to complete this topic Meningococcal B Vaccine Aged Out No l onger eligible based on patient's age to complete this topic RSV Immunization Patients Under 20 months Aged Out No longer eligible b ased on patient's age to complete this topic Varicella Vaccines Aged Out No longer eligible based on patient's age to complete this topic Procedures Procedure Name Priority Date/Time Associated Diagnosis Comments CBC WITH AUTO DIFFERENTIAL Routine 10/26/2024 10:06 AM EDT Hospital discharge follow-up Liver abscess Streptococcal bacteremia HEMOGLOBIN A1C Routine 10/26/2024 10:06 AM EDT Screening for diabetes mellitus (DM) CBC AND DIFFERENTIAL Routine 10/26/2024 10:06 AM EDT Hospital discharge follow-up Liver abscess Streptococcal bacteremia COMPREHENSIVE METABOLIC PANEL Routine 10/26/2024 10:06 AM EDT Hospital discharge follow-up Liver abscess Streptococcal bacteremia POC RAPID IROR-QST1-CKS, MOLECULAR Routine 10/01/2024 10:14 AM EST Subacute cough POC INFLUENZA A&B RAF Routine 10/01/2024 10:13 AM EST Subacute cough XR CHEST 2 VIEWS STAT 09/30/2024 2:04 PM EST Subacute cough from Last 3 Months Results * (ABNORMAL) CBC auto differential (10/26/2024 10:06 AM EDT) [facility] Signature WBC 9.5 4.8 - 10.8 K/mcL LAB HEMETOLOGY METHOD 10/26/2024 12:56 PM EDT [facility] RBC 4.20(L) 4.50 - 5.50 M/mcL LAB HEMETOLOGY METHOD 10/26/2024 12:56 PM EDT [facility] Hemoglobin 12.3(L) 13.5 - 17.5 g/dL LAB HEMETOLOGY METHOD 10/26/2024 12:56 PM T [facility] Hematocrit 38.9(L) 42.0 - 54.0 % LAB HEMETOLOGY METHOD 10/26/2024 12:56 PM [facility] MCV 92.8 79.0 - 98.0 FL LAB H[facility]ETOLOGY METHOD [facility] MCH 29.4 27.0 - 32.0 pcg LAB HEMETOLOGY METHOD 10/26/2024 12:56 PM [facility] MCHC 31.6(L) 32.0 - 37.0 g/dL LAB HEMETOLOGY METHOD 10/26/2024 12:56 PM [facility] RDW 14.7 11.0 - 15.0 % LAB HEMETOLOGY METHOD 10/26[facility]2024 [facility] Platelets 559(H) 130 - 400 K/mcL LAB HEMETOLOGY METHOD 10/26/2024 12:56 PM EDT [facility] MPV 8.6 7.0 - 11.0 FL LAB HEMETOLOGY METHOD [facility]/26[facility]2024 [facility] NRBC 0.0 <1.0 % LAB HEMETOLOGY METHOD 10/26/2024 12:56 PM EDT [facility] NRBC Absolute 0.00 <0.10 K/mcL LAB HEMETOLOGY METHOD 10/26[facility]2024 12[facility] Neutrophils Relative 64.8 % LAB HEMETOLOGY METHOD 10/26/2024 12:56 PM [facility] Lymphocytes Relative 19.1 % LAB HEMETOLOGY METHOD 10/26[facility]2024 12:[facility] Monocytes Relative 10.1 % LAB HEMETOLOGY METHOD 10/26/2024 12:[facility] Eosinophils Relative 2.6 % LAB HEMETOLOGY METHOD 10/26/2024 12:56 PM [facility] Basophils Relative 0.9 % LAB HEMETOLOGY METHOD 10/26/2024 12:56 PM [facility] Immature Granulocytes Relative 2.5 % LAB HEMETOLOGY METHOD 10/26/2024 12:56 PM [facility] Neutrophils Absolute 6.15 1.50 - 7.00 K/mcL LAB HEMETOLOGY METHOD 10/26/2024 12:56 PM [facility] Lymphocytes Absolute 1.82 1.00 - 5.00 K/mcL LAB HEMETOLOGY METHOD 10/26/2024 12:56 PM [facility] Monocytes Absolute 0.96 0.20 - 1.00 K/mcL LAB HEMETOLOGY METHOD 10/26/2024 12:56 PM [facility] Eosinophils Absolute 0.25 0.00 - 0.50 K/mcL LAB HEMETOLOGY METHOD 10/26/2024 12:56 PM [facility] Basophils Absolute 0.09 0.00 - 0.20 K/mcL LAB HEMETOLOGY METHOD 10/26/2024 12:56 PM [facility] Immature Granulocytes Absolute 0.24(H) 0.00 - 0.03 K/mcL LAB HEMETOLOGY METHOD 10/26/2024 12:56 PM EDT [facility] Blood Venous blood specimen / Unknown Venipuncture / Unknown 10/26/2024 10:06 AM EDT 10/26/2024 10:06 AM EDT Slava Medrano MD LAB BLOOD ORDERABLES Final Result Performing Organization Address City/[facility]/ZIP Co de Phone Number [facility] [address] [place] [address], [place] [phone] * Hemoglobin A1c (10/26/2024 10:06 AM EDT) [facility] Hemoglobin A1C 5.8 <6.5 % LAB CHEMISTRY METHOD 10/26/2024 9:24 PM EDT [facility] Mean Bld Glu Estim. 120 mg/dL LAB CHEMISTRY METHOD 10/26/2024 9:24 PM EDT [facility] Blood Venous blood specimen / Unknown Venipuncture / Unknown 10/26/2024 10:06 AM EDT 10/26/2024 10:06 AM EDT Slava Medrano MD LAB BLOOD ORDERABLES Final Result Performing Organization Address [facility]/ZIP Co de Phone Number [facility] [address] [place] [address], [place] [phone] * (ABNORMAL) Comprehensive metabolic panel (10/26/2024 10:06 AM EDT) [facility] Sodium 133 133 - 145 mmol/L LAB CHEMISTRY METHOD 10/26/2024 1:04 PM EDT [facility] Potassium 4.6 3.5 - 5.5 mmol/L LAB CHEMISTRY METHOD 10/26/2024 1:04 PM EDT [facility] Chloride 104 96 - 110 mmol/L LAB CHEMISTRY METHOD 10/26/2024 1:04 PM [facility] CO2 26 21 - 32 mmol/L LAB CHEMISTRY METHOD 10/26/2024 1:04 PM [facility] Anion Gap 3 3 - 11 LAB CHEMISTRY METHOD 10/26/2024 1:04 PM [facility] Glucose 96 70 - 100 mg/dL LAB CHEMISTRY METHOD 10/26/2024 1:04 PM [facility] BUN 7 5 - 25 mg/dL LAB CHEMISTRY METHOD 10/26/2024 1:04 PM [facility] Creatinine 0.81 0.70 - 1.30 mg/dL LAB CHEMISTRY METHOD 10/26/2024 1:04 PM [facility] eGFR 111 >=60 mL/min/1. 73m2 LAB CHEMISTRY METHOD 10/26/2024 1:04 PM [facility] Comment:Calculation based on the??Chronic Kidney Disease Epidemiology Collaboration (CKD-EPI) equation refit??without adjustment for race. BUN/Creatinine Ratio 8.6 LAB CHEMISTRY METHOD 10/26/2024 1:04 PM [facility] Calcium 8.5 8.5 - 10.5 mg/dL LAB CHEMISTRY METHOD 10/26/2024 1:04 PM [facility] AST (SGOT) 12 10 - 42 unit/L LAB CHEMISTRY METHOD 10/26/2024 1:04 [facility] ALT (SGPT) 20 10 - 60 unit/L LAB CHEMISTRY METHOD 10/26/2024 1:04 PM [facility] Alkaline Phosphatase 70 42 - 121 unit/L LAB CHEMISTRY METHOD 10/26/2024 1:04 PM [facility] Total Protein 7.0 6.0 - 8.0 g/dL LAB CHEMISTRY METHOD 10/26/2024 1:04 PM [facility] Albumin 2.7(L) 3.2 - 5.0 g/dL LAB CHEMISTRY METHOD 10/26/2024 1:04 PM EDT [facility] Total Bilirubin 0.1 0.0 - 1.4 mg/dL LAB CHEMISTRY METHOD 10/26/2024 1:04 PM EDT [facility] Blood Venous blood specimen / Unknown Venipuncture / Unknown 10/26/2024 10:06 AM EDT 10/26/2024 10:06 AM EDT Slava Medrano MD LAB BLOOD ORDERABLES Final Result [facility] [address] [place] [address], * Poc Rapid [id number], MOLECULAR (10/01/2024 10:14 AM EST) Pathologist [facility] COVID-19/SARS- COV-2 Rapid POC Negative Negative Internal Control Pass Yes Yes Swab Nasopharyngeal structure / Unknown 10/01/2024 10:14 AM EST us Nory Peguero NP POINT OF CARE TEST ENTER/EDIT ORDERABLES Final Result * POC Influenza A&B RAF (10/01/2024 10:13 AM EST) Pathologist [facility] POC Rafaela Flu A Antigen Negative Negative POC Rafaela Flu B Antigen Negative Negative Swab Nasopharyngeal structure / Unknown 10/01/2024 10:13 AM EST us Nory Peguero [employer] POINT OF CARE TEST ENTER/EDIT ORDERABLES Final Result * XR Chest 2 Views (09/30/2024 2:04 PM EST) Anatomical Region Laterality Modality Body Radiographic Emma ging 10/02/2024 8:08 AM EST Impressions 10/02/2024 8:10 AM EST No evidence of an acute chest process. POS - [id number] -------- FINAL REPORT -------- Dictated By: Debbie Bernal Dictated Date: 10/02/2024 08:08 ET Assigned Physician: Debbie Bernal Reviewed and Electronically Signed By: Debbie Bernal Signed Date: 10/02/2024 08:10 ET Workstation ID: [id number] Transcribed By: Self Edit Transcribed Date: 10/02/2024 08:08 ET Narrative 10/02/2024 8:10 AM EST EXAM: Chest x-ray HISTORY: ??Subacute cough. COMPARISON: None FINDINGS: PA and lateral views of the chest were performed. ?? No focal infiltrate, pleural effusion, or evidence of pulmonary edema. Heart and mediastinal contours appear within normal limits. Bridging endplate osteophytes in the upper thoracic spine. Procedure Note Debbie Bernal MD - 10/02/2024 EXAM: Chest x-ray HISTORY: Subacute cough. COMPARISON: None FINDINGS: PA and lateral views of the chest were performed. No focal infiltrate, pleural effusion, or evidence of pulmonary edema.Heart and mediastinal contours appear within normal limits. Bridgingendplate osteophytes in the upper thoracic spine. IMPRESSION: No evidence of an acute chest process. POS - [id number] -------- FINAL REPORT -------- Dictated By: Debbie Bernal Dictated Date: 10/02/2024 08:08 ET Assigned Physician: Debbie Bernal Reviewed and Electronically Signed By: Debbie Bernal Signed Date: 10/02/2024 08:10 ET Workstation ID: [id number] Transcribed By: Self Edit Transcribed Date: 10/02/2024 08:08 ET Nory Peguero NP IMG XR PROCEDURES Final Result from Last 3 Months Insurance * Guarantor: Petey Oliver Account Type Relation to Patient Date of Phone Billing Address Personal/Family Self 1980 [address] [place] [address] [facility] Care Teams Chief Librarian Branch Relationship Specialty Start Date End Date Slava Medrano MD [address] [place] [id number] PCP - General 10/06/22
== END 2024-11-14 10:07 | disposition home or self-care (01) ==
DX: F10.20 Alcohol dependence, uncomplicated (principal)

== ENCOUNTER → 2024-11-14 09:18 | Outpatient (BNVA) | payer OTHER, SELFPAY | DX: F10.20 Alcohol dependence, uncomplicated (principal) | CPT/HCPCS: 96372; J2315 ==

== ENCOUNTER 2024-12-13 13:44 | Outpatient (AMB) | payer OTHER, SELFPAY ==
--- OUTSIDE RECORDS SUMMARY | 2024-12-13 13:48 | XMS_ITS ---
Demographics Address [address] [place] [address] Home Phone Mobile Phone Email Address Preferred Language en Marital Status Single Rastafari Affiliation Unknown Race White Ethnic Group Not or Lati no Author Organization [address] [place] [phone] Phone Care Team Providers Care Senior Consulting Manager Name Role Phone Slava Medrano MD Primary Care Provider [facility] - Transportation Status:Ongoing (Active) Start date:10/24/2024 Enrollment date:10/24/2024 Related social drivers of health:Transportation Related program episode:Community Health Worker Program (Closed) Overview Community Health Worker Program - Transportation Service Episode Case Team Name Relationship Phone Carmen Quesada Community Health Worker(Responsi ble Staff) Continued Care and Services Coordination
--- OUTSIDE RECORDS SUMMARY | 2024-12-13 13:48 | XMS_ITS | Encounter Summary ---
Author Organization [facility] Address [address] [place] [address] Care Team Providers Care Sustainable Agriculture Faculty Name Role Phone Salva Medrano MD Primary Care Provider [phone] Reason for Referral * Consultation (Routine) - Pending Review Specialty Diagnoses / Procedures Referred By Saud rodriguez Referred To Contact Gastroenterology Diagnoses Screening cholesterol level Deanne Oviedo PA [address] [place] [address] Phone: tel: fax: Referral ID Status Reason Start Date Expiration Date Visits Requested Visits Authorized [id number] Pending Review Specialty Services Required 12/12/2024 12/12/2025 1 1 Reason for Visit * Reason Comments requesting labs Encounter Details Date Type Department Care Team (Late st Contact Info) Description 12/12/2024 2:00 PM EDT Office Visit Adult Medicine [address] [phone] Deanne Oviedo PA [address] [place] [phone] Liver abscess (Primary Dx); Bipolar affective disorder, current episode mixed, current episode severity unspecified (CMS/HCC V24, CMS/HCC V28); Screening cholesterol level Social History Tobacco Use Types Packs/Day Years Used Date Smoking Tobacco: Every Day Cigarettes 1 9.4 Started: 08/02/2015 Smokeless Tobacco: Never Tobacco Cessation:Ready [...] care for your loved ones. For example, summer child caregiver or elderly care for an older adult? [...] on file documented as of this encounter Last Filed Vital Signs Vital Sign Reading Time Taken Comments Blood Pressure 120/80 12/12/2024 1:49 PM EDT Pulse 65 12/12/2024 1:49 PM EDT Temperature 36.6 ??C (97.9 ??F) 12/12/2024 1:49 PM ED T Respiratory Rate 14 12/12/2024 1:49 PM EDT Oxygen Saturation - - Inhaled Oxygen Concentration - - Weight 70.8 kg (156 lb) 12/12/2024 1:49 PM EDT Height 170.2 cm (5' 7 ) 12/12/2024 1:49 PM EDT Body Mass Index 24.43 12/12/2024 1:49 PM EDT documented in this encounter Progress Notes * CONY Bhandari - 12/12/2024 2:00 PM EDT CHIEF COMPLAINT: requesting labs IDENTIFIER: Petey Oliver is a 44 y.o. old male. Past medical history: bipolar disorder, alcohol use disorder in remission, history of liver abscesss/p drainage History of Present Illness The patient presents for a follow-up visit. Liver Abscess - Previously treated by [facility] for a liver abscess with JEISON drain placement, removed 1 month ago. - Discontinued VNA services. - Reports minimal sensitivity at the former JEISON drain site, no significant discomfort, robust appetite, and no pain. - Concerned about liver health and avoiding further hospitalizations. - Recalls near- experience due to sepsis, initially manifested as shoulder pain. Alcohol Abstinence - Abstained from alcohol for nearly a year. - Attends AA meetings. Bipolar disorder - Currently on trazodone, olanzapine, and lorazepam, prescribed by psychiatrist. - He follows up with psychiatrist in [place]. SOCIAL HISTORY Abstained from alcohol for nearly a year, attends AA meetings. He is having a follow-up appointment with interventional radiologist at [facility] on 10/31/2024 for removal of JEISON drain. He is also having an appointment with [facility] on 11/01/2024 psychiatrist in [place] for bipolar disorder Health maintenance reviewed. He is due for colonoscopy and referral placed for GI today. ROS: GENERAL: No malaise, significant weight loss or fever HEENT: No changes in hearing or vision, nose bleeds or other nasal problems NECK: No lumps, goiter, pain or significant neck swelling RESPIRATORY: No cough, wheezing or shortness of breath CARDIOVASCULAR: No chest pain, leg swelling or palpitations GI: No abdominal pain, hematochezia, melena : No dysuria, oliguria, polyuria, hematuria, flank pain MUSCULOSKELETAL: No joint pain or swelling, back pain, or muscle pain. SKIN: No lesions, rash or itching NEURO: No persistent headache, syncope, seizures, weakness or numbness PAST MEDICAL HISTORY: Patient Active Problem List Diagnosis Date Noted Alcohol abuse 01/23/2021 Agitation 12/16/2020 Anger 12/16/2020 Anxiety disorder 12/16/2020 Past Surgical History: Procedure Laterality Date LEG SURGERY PROCEDURE: HISTORICAL LEG SURGERY; COMMENT: age [age] R leg multiple surgeries [facility] SOCIAL HISTORY: Social History Tobacco Use Smoking status: Every Day Current packs/day: 1.00 Average packs/day: 1 pack/day for 9.4 years (9.4 ttl pk-yrs) Types: Cigarettes Start date: 08/02/2015 Smokeless tobacco: Never Substance Use Topics Alcohol use: Yes FAMILY HISTORY: No family history on file. Family Status Relation Name Status Mother Alive Father Alive No partnership data on file MEDICATIONS DISCONTINUED/REORDERED: Medications Discontinued During This Encounter Medication Reason amoxicillin (AMOXIL) 875 mg tablet Therapy completed ACTIVE MEDICATIONS: Outpatient Medications Marked as Taking for the 12/12/24 encounter (Office Visit) with CONY Bhandari Medication Sig Dispense Refill LORazepam (ATIVAN) 1 mg tablet Take 1 tablet (1 mg total) by mouth. OLANZapine (ZyPREXA) 10 mg tablet Take 1 Tab by mouth 2 times daily. traZODone (DESYREL) 100 mg tablet Take 100 mg by mouth at bedtime. [DISCONTINUED] amoxicillin (AMOXIL) 875 mg tablet Take 1 tablet (875 mg total) by mouth every 12 (twelve) hours. for 10 days ALLERGIES: Not on File PHYSICAL EXAM: Vitals: 12/12/24 1349 BP: 120/80 Pulse: 65 Resp: 14 Temp: 36.6 ??C (97.9 ??F) Physical Exam APPEARANCE: Alert and in no acute distress. HEART: RRR with normal S1 and S2, no murmurs, no gallops. LUNG: clear to auscultation, no wheezing, rales, or rhonchi. Able to talk in full complete sentences. ABDOMEN: right upper flank with well healed scar. No abdominal tenderness, normal bowel sounds, no guarding. MUSCULOSKELETAL: Strength 5/5 to bilateral upper/lower extremities. LABS: Results for orders placed or performed in visit on 10/26/24 Comprehensive metabolic panel Collection Time: 10/26/24 10:06 AM Result Value Ref Range Sodium 133 133 - 145 mmol/L Potassium 4.6 3.5 - 5.5 mmol/L Chloride 104 96 - 110 mmol/L CO2 26 21 - 32 mmol/L Anion Gap 3 3 - 11 Glucose 96 70 - 100 mg/dL BUN 7 5 - 25 mg/dL Creatinine 0.81 0.70 - 1.30 mg/dL eGFR 111 >=60 mL/min/1.73m2 BUN/Creatinine Ratio 8.6 Calcium 8.5 8.5 - 10.5 mg/dL AST (SGOT) 12 10 - 42 unit/L ALT (SGPT) 20 10 - 60 unit/L Alkaline Phosphatase 70 42 - 121 unit/L Total Protein 7.0 6.0 - 8.0 g/dL Albumin 2.7 (L) 3.2 - 5.0 g/dL Total Bilirubin 0.1 0.0 - 1.4 mg/dL Hemoglobin A1c Collection Time: 10/26/24 10:06 AM Result Value Ref Range Hemoglobin A1C 5.8 <6.5 % Mean Bld Glu Estim. 120 mg/dL CBC auto differential Collection Time: 10/26/24 10:06 AM Result Value Ref Range WBC 9.5 4.8 - 10.8 K/mcL RBC 4.20 (L) 4.50 - 5.50 M/mcL Hemoglobin 12.3 (L) 13.5 - 17.5 g/dL Hematocrit 38.9 (L) 42.0 - 54.0 % MCV 92.8 79.0 - 98.0 FL MCH 29.4 27.0 - 32.0 pcg MCHC 31.6 (L) 32.0 - 37.0 g/dL RDW 14.7 11.0 - 15.0 % Platelets 559 (H) 130 - 400 K/mcL MPV 8.6 7.0 - 11.0 FL NRBC 0.0 <1.0 % NRBC Absolute 0.00 <0.10 K/mcL Neutrophils Relative 64.8 % Lymphocytes Relative 19.1 % Monocytes Relative 10.1 % Eosinophils Relative 2.6 % Basophils Relative 0.9 % Immature Granulocytes Relative 2.5 % Neutrophils Absolute 6.15 1.50 - 7.00 K/mcL Lymphocytes Absolute 1.82 1.00 - 5.00 K/mcL Monocytes Absolute 0.96 0.20 - 1.00 K/mcL Eosinophils Absolute 0.25 0.00 - 0.50 K/mcL Basophils Absolute 0.09 0.00 - 0.20 K/mcL Immature Granulocytes Absolute 0.24 (H) 0.00 - 0.03 K/mcL IMPRESSION: 1. Liver abscess 2. Bipolar affective disorder, current episode mixed, current episode severity unspecified (CMS/HCCV24, CMS/HCC V28) 3. Screening cholesterol level Assessment & Plan 1. Liver abscess: Stable. - Liver enzymes normal 1 month ago. - Order repeat blood work to monitor liver function. - Abstain from food for 8 hours prior to blood work. - I will obtain notes from [facility] for review, will order follow up imaging as needed. 2. Bipolar disorder: Mood is stable. - Taking trazodone, olanzapine, and lorazepam. - Continue follow up with psychiatrist in [place]. Follow-up - Follow up in 3 to 4 months for routine physical examination. I have obtained verbal consent from Petey Oliver prior to the recording. I have advised Petey Oliver that he may refuse the recording and require the recording to be turned off at any time during this encounter. All questions and concerns were addressed. Ankushmeetyumiko Gonzalezmonika verbalizes understanding and agrees with this treatment plan. Patient was reminded to call or return to the office if any new or existingproblems arise. Orders Placed This Encounter Procedures CBC and differential Comprehensive metabolic panel Lipid panel with reflex to direct LDL Ambulatory referral to Gastroenterology AMB REFERRAL TO GASTROENTEROLOGY CONY Bhandari on 12/12/2024 at 3:53 PM EDT Today's documentation was made using voice recognition software.This note may contain grammatical errors secondary to this software. documented in this encounter Plan of Treatment Upcoming Encounters Date Type Department Care Team (Late st Contact Info) Description 04/16/2025 10:30 AM EDT Office Visit Adult Medicine [address] [phone] Slava Medrano MD [address] [place] [phone] Scheduled Orders Name Type Priority Associated Diagnoses Orde r Schedule CBC and differential Lab Routine Liver abscess Screening cholesterol level 1 Occurrences starting 12/12/2024 until 12/12/2025 Comprehensive metabolic panel Lab Routine Liver abscess Screening cholesterol level 1 Occurrences starting 12/12/2024 until 12/12/2025 Lipid panel with reflex to direct LDL Lab Routine Liver abscess Screening cholesterol level 1 Occurrences starting 12/12/2024 until 12/12/2025 Scheduled Referrals Name Type Priority Associated Diagnoses Order Schedule Ambulatory referral to Gastroenterology Outpatient Referral Routine Screening cholesterol level 1 Occurrences starting 12/12/2024 until 12/12/2025 documented as of this encounter Visit Diagnoses Diagnosis Liver abscess- Primary Abscess of liver Bipolar affective disorder, current episode mixed, current episode severity unspecified ([facility] V24, [facility] V28) Screening cholesterol level Screening for lipoid disorders documented in this encounter Discontinued Medications Medication Sig Discontinue Reason Start Date End Da te amoxicillin (AMOXIL) 875 mg tablet Take 1 tablet (875 mg total) by mouth every 12 (twelve) hours. for 10 days Therapy completed 04/23/2024 12/12/2024 documented as of this encounter Care Teams Sustainable Agriculture Faculty Relationship Specialty Start Date End Date Slava Medrano MD [address] [place] [phone] PCP - General 10/06/22 documented as of this encounter
--- OUTSIDE RECORDS SUMMARY | 2024-12-13 13:48 | XMS_ITS ---
Demographics Address [address] [place] [address] Home Phone Mobile Phone Email Address Preferred Language en Marital Status Single Restorationist Affiliation Unknown Race White Ethnic Group Not or Lati no Author Organization [address] Address [address] [place] [address] Phone Care Team Providers Care Milk Wagon Driver Name Role Phone Slava Medrano MD Primary Care Provider [phone] [facility] - Food Insecurity Status:Ongoing (Active) Start date:10/24/2024 Enrollment date:10/24/2024 Enrollment reason:Referred by Care Team Related social drivers of health:Food Risk Related program episode:Community Health Worker Program (Closed) Overview Community Health Worker Program - Food Insecurity Service Episode Case Team Name Relationship Phone Carmen Quesada Community Health Worker(Responsi ble Staff) Continued Care and Services Coordination
--- OUTSIDE RECORDS SUMMARY | 2024-12-13 13:48 | XMS_ITS | Clinical Summary ---
Author Organization [address] [facility] Address [address] [place] [phone] Phone Care Team Providers Care Systems Technologist Name Role Phone Slava Medrano MD Primary Care Provider Medications OLANZapine (ZyPREXA) 10 mg tablet Take 1 Tab by mouth 2 times daily. 0 Active traZODone (DESYREL) 100 mg tablet Take 100 mg by mouth at bedtime. Active LORazepam (ATIVAN) 1 mg tablet Take 1 tablet (1 mg total) by mouth. 5 Active amoxicillin (AMOXIL) 875 mg tablet Take 1 tablet (875 mg total) by mouth every 12 (twelve) hours. for 10 days 4 12/13/19 25 Discontinu ed(Therapy completed) Active Problems Problem Noted Date Diagnosed Date Alcohol abuse 01/23/2021 Agitation 12/16/2020 Anger 12/16/2020 Anxiety disorder 12/16/2020 Encounters Date Type Department Care Team Description 12/12/2024 2:00 PM EDT Office Visit Adult Medicine [address] [phone] Deanne Oviedo PA Liver abscess (Primary Dx); Bipolar affective disorder, current episode mixed, current episode severity unspecified (CMS/HCC V24, CMS/HCC V28); Screening cholesterol level 11/08/2024 Telephone Adult Medicine [address], [place] [phone] Odilia Lam MA CT-SCAN ORDER 11/02/2024 Telephone Adult [address] [phone] Slava Medrano MD Forms/questionnaire s 10/26/2024 10:00 AM EDT Lab Draw Station [address] Hospital discharge follow-up; Liver abscess; Streptococcal bacteremia; Screening for diabetes mellitus (DM) 10/26/2024 9:30 AM EDT Office Visit Adult [address] [phone] Slava Medrano MD Hospital discharge follow-up (Primary Dx); Liver abscess; Streptococcal bacteremia; Bipolar affective disorder, current episode mixed, current episode severity unspecified ([facility]/HCC V24, [facility]/HCC V28); Screening for diabetes mellitus (DM) 10/24/2024 Telephone [facility] [address] [place] [phone] [place], [place] 10/23/2024 Telephone Adult [address] [phone] Tracy Oscar RN hosp f/u 09/30/2024 1:58 PM EST - 09/30/2024 11:59 PM EST Hospital Encounter Xray - [facility] [address] [place] [address] Subacute cough Discharge Disposition: Home or Self Care 09/30/2024 1:45 PM EST Office Visit Walk-In Clinic - [address] [phone] Nory Peguero NP Subacute cough (Primary Dx); [...] COMMENT: age [age] R leg multiple surgeries [facility] Medical History Medical History Date Comments [...] Record ed Within the last 3 months, zenobia silverman many times did you visit the emergency [...] care for your loved ones. For example, director of early childhood or elderly care for an older adult? [...] 14 12/12/2024 1:49 PM EDT Oxygen Saturation 98% 09/30/2024 1:37 PM EST Inhaled Oxygen Concentration - - Weight 70.8 kg (156 lb) 12/12/2024 1:49 PM EDT Height 170.2 cm (5' 7 ) 12/12/2024 1:49 PM EDT Body Mass Index 24.43 12/12/2024 1:49 PM EDT Plan of Treatment Upcoming Encounters Date Type Department Care Team (Late st Contact Info) Description 04/16/2025 10:30 AM EDT Office Visit Adult Medicine [address] [phone] Slava Medrano MD [address] [place] [phone] Health Maintenance Due Date Last Done Comments [...] follow-up Liver abscess Streptococcal bacteremia POC RAPID [id number], MOLECULAR Routine 10/01/2024 10:14 AM EST Subacute cough POC INFLUENZA A&B RAF Routine 10/01/2024 10:13 AM EST Subacute cough XR CHEST 2 VIEWS STAT 09/30/2024 2:04 PM EST Subacute cough from Last 3 Months Results * (ABNORMAL) CBC auto differential (10/26/2024 10:06 AM EDT) [facility] [place] WBC 9.5 4.8 - 10.8 K/mcL LAB HEMETOLOGY METHOD 10/26/2024 12:56 PM [facility] RBC 4.20(L) 4.50 - 5.50 M/mcL LAB HEMETOLOGY METHOD 10/[facility]24 [facility] Hemoglobin 12.3(L) 13.5 - 17.5 g/dL LAB HEMETOLOGY METHOD 10/26/2024 12:56 PM [facility] Hematocrit 38.9(L) 42.0 - 54.0 % LAB HEMETOLOGY METHOD 10/26/2024 12:56 PM [facility] MCV 92.8 79.0 - 98.0 FL LAB HEMETOLOGY METHOD 10/26/2024 12:56 [facility] MCH 29.4 27.0 - 32.0 pcg LAB HEMETOLOGY METHOD 10/26/2024 12:56 PM [facility] MCHC 31.6(L) 32.0 - 37.0 g/dL LAB HEMETOLOGY METHOD 10/26/2024 12:56 PM [facility] RDW 14.7 11.0 - 15.0 % LAB HEMETOLOGY METHOD 10/26/2024 12:56 PM T [facility] Platelets 559(H) 130 - 400 K/mcL LAB HEMETOLOGY METHOD 10/26/2024 12:56 PM [facility] MPV 8.6 7.0 - 11.0 FL LAB HEMETOLOGY METHOD 10/26/2024 12:56 PM [facility] NRBC 0.0 <1.0 % LAB HEMETOLOGY METHOD 10/26/2024 12:56 PM [facility] NRBC Absolute 0.00 <0.10 K/mcL LAB HEMETOLOGY METHOD 10/26/2024 12:56 PM [facility] Neutrophils Relative 64.8 % LAB HEMETOLOGY METHOD 10/26/2024 12:56 PM [facility] Lymphocytes Relative 19.1 % LAB HEMETOLOGY METHOD 10/26/2024 12:56 PM [facility] Monocytes Relative 10.1 % LAB HEMETOLOGY METHOD 10/26/2024 12:56 PM [facility] Eosinophils Relative 2.6 % LAB HEMETOLOGY METHOD 10/26/2024 12:56 PM [facility] Basophils Relative 0.9 % LAB HEMETOLOGY METHOD 10/26/2024 12:56 PM [facility] Immature Granulocytes Relative 2.5 % LAB HEMETOLOGY METHOD 10/26/2024 12:56 PM [facility] Neutrophils Absolute 6.15 1.50 - 7.00 K/mcL LAB HEMETOLOGY METHOD 10/26/2024 12:56 PM [facility] Lymphocytes Absolute 1.82 1.00 - 5.00 K/mcL LAB HEMETOLOGY METHOD 10/26/2024 12:56 PM [facility] Monocytes Absolute 0.96 0.20 - 1.00 K/mcL LAB HEMETOLOGY METHOD 10/26/2024 12:56 PM EDT [facility] Eosinophils Absolute 0.25 0.00 - 0.50 K/mcL LAB HEMETOLOGY METHOD 10/26/2024 12:56 PM EDT [facility] Basophils Absolute 0.09 0.00 - 0.20 K/mcL LAB HEMETOLOGY METHOD 10/26/2024 12:56 PM EDT [facility] Immature Granulocytes Absolute 0.24(H) 0.00 - 0.03 K/mcL LAB HEMETOLOGY METHOD 10/26/2024 12:56 PM EDT [facility] Blood Venous blood specimen / Unknown Venipuncture / Unknown 10/26/2024 10:06 AM EDT 10/26/2024 10:06 AM EDT Slava Medrano MD LAB BLOOD ORDERABLES Final Result [facility] [address] [place] [address], [place] [phone] * Hemoglobin A1c (10/26/2024 10:06 AM EDT) [facility] Signature Hemoglobin A1C 5.8 <6.5 % LAB CHEMISTRY METHOD 10/26/2024 9:24 PM EDT [facility] Mean Bld Glu Estim. 120 mg/dL LAB CHEMISTRY METHOD 10/26/2024 9:24 PM EDT [facility] Blood Venous blood specimen / Unknown Venipuncture / Unknown 10/26/2024 10:06 AM EDT 10/26/2024 10:06 AM EDT Slava Medrano MD LAB BLOOD ORDERABLES Final Result [facility] [address] [place], [place] [address] [phone] * (ABNORMAL) Comprehensive metabolic panel (10/26/2024 10:06 AM EDT) Sodium 133 133 - 145 mmol/L LAB CHEMISTRY METHOD 10/26/2024 1:04 PM [facility] Potassium 4.6 3.5 - 5.5 mmol/L LAB CHEMISTRY METHOD 10/26/2024 1:04 PM [facility] Chloride 104 96 - 110 mmol/L LAB CHEMISTRY METHOD 10/26/2024 1:04 PM [facility] CO2 26 21 - 32 mmol/L LAB CHEMISTRY METHOD 10/26/2024 1:04 PM [facility] Anion Gap 3 3 - 11 LAB CHEMISTRY METHOD 10/26/2024 1:04 PM [facility] Glucose 96 70 - 100 mg/dL LAB CHEMISTRY METHOD 10/26/2024 1:04 PM [facility] BUN 7 5 - 25 mg/dL LAB CHEMISTRY METHOD 10/26/2024 1:04 PM [facility] Creatinine 0.81 0.70 - 1.30 mg/dL LAB CHEMISTRY METHOD 10/26/2024 1:04 PM [facility] eGFR 111 >=60 mL/min/1. 73m2 LAB CHEMISTRY METHOD 10/26/2024 1:04 PM [facility] Comment:Calculation based on the??Chronic Kidney Disease Epidemiology Collaboration (CKD-EPI) equation refit??without adjustment for race. BUN/Creatinine Ratio 8.6 LAB CHEMISTRY METHOD 10/26/2024 1:04 PM [facility] Calcium 8.5 8.5 - 10.5 mg/dL LAB CHEMISTRY METHOD 10/26/2024 1:04 PM [facility] AST (SGOT) 12 10 - 42 unit/L LAB CHEMISTRY METHOD 10/26/2024 1:04 PM [facility] ALT (SGPT) 20 10 - 60 unit/L LAB CHEMISTRY METHOD 10/26/2024 1:04 PM EDT [facility] Alkaline Phosphatase 70 42 - 121 unit/L LAB CHEMISTRY METHOD 10/26/2024 1:04 PM EDT [facility] Total Protein 7.0 6.0 - 8.0 g/dL LAB CHEMISTRY METHOD 10/26/2024 1:04 PM EDT [facility] Albumin 2.7(L) 3.2 - 5.0 g/dL LAB CHEMISTRY METHOD 10/26/2024 1:04 PM EDT [facility] Total Bilirubin 0.1 0.0 - 1.4 mg/dL LAB CHEMISTRY METHOD 10/26/2024 1:04 PM EDT [facility] Blood Venous blood specimen / Unknown Venipuncture / Unknown 10/26/2024 10:06 AM EDT 10/26/2024 10:06 AM EDT Slava Medrano MD LAB BLOOD ORDERABLES Final Result [facility] [address] [place] [address], * Poc Rapid [id number], MOLECULAR (10/01/2024 10:14 AM EST) Pathologist [facility] COVID-19/SARS- COV-2 Rapid POC Negative Negative Internal Control Pass Yes Yes Swab Nasopharyngeal structure / Unknown 10/01/2024 10:14 AM EST Nory Peguero NP POINT OF CARE TEST ENTER/EDIT ORDERABLES Final Result * POC Influenza A&B RAF (10/01/2024 10:13 AM EST) POC Rafaela Flu A Antigen Negative Negative POC Rafaela Flu B Antigen Negative Negative Swab Nasopharyngeal structure / Unknown 10/01/2024 10:13 AM EST Nory Peguero NP POINT OF CARE TEST ENTER/EDIT ORDERABLES Final Result * XR Chest 2 Views (09/30/2024 2:04 PM EST) Anatomical Region Laterality Modality Body Radiographic Emma ging 10/02/2024 8:08 AM EST Impressions 10/02/2024 8:10 AM EST No evidence of an acute chest process. POS - [id number] -------- FINAL REPORT -------- Dictated By: Debbie Bernal Dictated Date: 10/02/2024 08:08 ET Assigned Physician: Debbie Bernal Reviewed and Electronically Signed By: Debbie Bernal Signed Date: 10/02/2024 08:10 ET Workstation ID: [id number] Transcribed By: Self Edit Transcribed Date: 10/02/2024 [...] of an acute chest process. POS - [id number] -------- FINAL REPORT -------- Dictated By: Debbie Bernal Dictated Date: 10/02/2024 08:08 ET Assigned Physician: Debbie Bernal Reviewed and Electronically Signed By: Debbie Bernal Signed Date: 10/02/2024 08:10 ET Workstation ID: [id number] Transcribed By: Self Edit Transcribed Date: 10/02/2024 08:08 ET us Nory Peguero BIODIESEL ENGINE SPECIALIST IMG XR PROCEDURES Final Result from Last 3 Months Insurance * Guarantor: Petey Oliver Account Type Relation to Patient Date of Phone Billing Address Personal/Family Self [address] [facility] [address] [place] [address] [facility] [employer] Care Teams Systems Technologist Relationship Specialty Start Date End Date Slava Medrano MD [address] [place] [phone] PCP - General 10/06/22
--- NOTE | 2024-12-13 14:01 | AM.OFFVISNUR ---
Vital Signs 12/13/24 14:02 BP 110/72 Blood Pressure Location Rt brachial Position Sitting Pulse 82 Pulse Source Pulse Oximeter Pulse Oximetry (%) 99 Oxygen Delivery Method Room Air Intake Visit Reasons: Vivitrol Injection Allergies amoxicillin [From AUGMENTIN] Allergy (Unknown, Verified 05/25/23 16:00) HIVES clavulanic acid [From AUGMENTIN] Allergy (Unknown, Verified 05/25/23 16:00) HIVES augmentin Allergy (Unknown, Uncoded 05/25/23 16:00) Office Meds Vivitrol 380 mg intramuscular suspension,extended release Performing Provider: Deanne Lima MD Performing Location: [facility] Administered by: Lisbeth Billingsley RN on 12/13/24 14:19 Dose Route Admin Location Dispensed Lot Number Expiration Date [facility] Occupational Health Nurse Supervisor 380 mg IM LG 380 mg 2025-1005T 07/01/27 77231-503-56 [employer] Comments: Pt here for 4week AUD check in and Vivitrol injection. Pt reports no issue with previous injections and tolerated injection well. Educated on signs and symptoms of infection and urged to call [facility] with any questions or concerns. Pt verbalized understanding. Follow-up appointment made in 4 weeks for next injection. Assessment & Plan Assessment & Plan Orders: Orders AMB Naltrexone Injection Patient Supplied (NC) Today F10.20 - Alcohol dependence, uncomplicated Coding
[2024-12-13 14:02] VITALS: BP 110/72; PULSE 82; O2SAT 99
--- NOTE | 2024-12-13 14:23 | AM.OFFVISNUR ---
Vital Signs 12/13/24 14:02 BP 110/72 Blood Pressure Location Rt brachial Position Sitting Pulse 82 Pulse Source Pulse Oximeter Pulse Oximetry (%) 99 Oxygen Delivery Method Room Air Intake Visit Reasons: Vivitrol Injection Allergies amoxicillin [From AUGMENTIN] Allergy (Unknown, Verified 05/25/23 16:00) HIVES clavulanic acid [From AUGMENTIN] Allergy (Unknown, Verified 05/25/23 16:00) HIVES augmentin Allergy (Unknown, Uncoded 05/25/23 16:00) Nursing Note Kwame is here for his 4 week AUD check in and Vivitrol injection. Kwame is alert and oriented, pleasant and cooperative with appropriate affect. Kwame reports 10 months of sobriety and is doing well in recovery, he denies any negtve symptoms and denies any breakthrough cravings. Kwame attends AA on a regular basis for support and has 2 sponsors with whom he has developed a good rapport. 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 Treatment engagement letter provided. Follow-up appointment made in 4 weeks. Office Meds Vivitrol 380 mg intramuscular suspension,extended release Performing Provider: Deanne Lima MD Performing Location: [facility] Administered by: Lisbeth Billingsley RN on 12/13/24 14:19 Dose Route Admin Location Dispensed Lot Number Expiration Date [facility] Calculus Teacher 380 mg IM LG 380 mg 2025-1005T 07/01/27 93635-266-32 [employer] Comments: Pt here for 4week AUD check in and Vivitrol injection. Pt reports no issue with previous injections and tolerated injection well. Educated on signs and symptoms of infection and urged to call [facility] with any questions or concerns. Pt verbalized understanding. Follow-up appointment made in 4 weeks for next injection. Assessment & Plan Assessment & Plan Orders: Orders AMB Naltrexone Injection Patient Supplied (NC) Today F10.20 - Alcohol dependence, uncomplicated Coding
== END 2024-12-13 14:27 | disposition home or self-care (01) ==
LOC: HO.HCC 13:44
DX: F10.20 Alcohol dependence, uncomplicated (principal)

== ENCOUNTER → 2024-12-13 13:44 | Outpatient (BNVA) | payer OTHER, SELFPAY | DX: F10.20 Alcohol dependence, uncomplicated (principal) | CPT/HCPCS: 96372; J2315 ==

== ENCOUNTER 2025-01-10 12:58 | Outpatient (AMB) | payer OTHER, SELFPAY ==
[2025-01-10 13:25] VITALS: BP 110/71; PULSE 67; O2SAT 99
--- NOTE | 2025-01-10 13:25 | AM.OFFVISNUR ---
Vital Signs 01/10/25 13:25 BP 110/71 Blood Pressure Location Rt brachial Position Sitting Pulse 67 Pulse Source Pulse Oximeter Pulse Oximetry (%) 99 Oxygen Delivery Method Room Air Intake Visit Reasons: Vivitrol Injection Allergies amoxicillin [From AUGMENTIN] Allergy (Unknown, Verified 05/25/23 16:00) HIVES clavulanic acid [From AUGMENTIN] Allergy (Unknown, Verified 05/25/23 16:00) HIVES augmentin Allergy (Unknown, Uncoded 05/25/23 16:00) Nursing Note Kwame is present for four week AUD check in and Vivitrol injection. Kwame reports doing well in recovery. He denies any negative symptoms or breakthrough cravings, attends AA meetings and has sponsors for recovery support. He did mention being in the hospital in September with a cyst/infection in liver, reports having normal labs after, he has had two injections since then and he mentioned that his providers were aware that he was getting the Naltrexone injection. No documentation is in our records, provider updated on PMH reported from different facility. Follow-up appointment made in 4 week. Office Meds Vivitrol 380 mg intramuscular suspension,extended release Performing Provider: Deanne Lima MD Performing Location: [facility] Administered by: Lisbeth Billingsley RN on 01/10/25 13:30 Dose Route Admin Location Dispensed Lot Number Expiration Date [facility] Open Tenter Operator 380 mg IM RG 380 mg 2024-1048T 05/01/27 78558-150-16 [employer] Comments: Pt here for monthly vivtrol injection. Pt tolerated injection well, no issues with previous injection. t educated on signs and symptoms of infection, will call office with any questions or concerns. Pt verbalized understnding, follow up appointment made in 4 weeks Assessment & Plan Assessment & Plan Orders: Orders AMB Naltrexone Injection Patient Supplied (NC) Today F10.20 - Alcohol dependence, uncomplicated Coding
--- OUTSIDE RECORDS SUMMARY | 2025-01-10 14:31 | XMS_ITS ---
Demographics Address [address] [place] [address] Home Phone Mobile Phone Email Address Preferred Language en Marital Status Single Zoroastrian Affiliation Unknown Race White Ethnic Group Not or Lati no Author Organization [address] Address [address] [place] [phone] Phone Care Team Providers Care Blood Tester Name Role Phone Slava Medrano MD Primary Care Provider [facility] - Transportation Status:Ongoing (Active) Start date:10/24/2024 Enrollment date:10/24/2024 Related social drivers of health:Transportation Related program episode:Community Health Worker Program (Closed) Overview Community Health Worker Program - Transportation Service Episode Case Team Name Relationship Phone Carmen Quesada Community Health Worker(Responsi ble Staff) Continued Care and Services Coordination
== END 2025-01-10 14:06 | disposition home or self-care (01) ==
LOC: HO.HCC 12:58
DX: F10.20 Alcohol dependence, uncomplicated (principal)

== ENCOUNTER → 2025-01-10 12:58 | Outpatient (BNVA) | payer SELFPAY | DX: F10.20 Alcohol dependence, uncomplicated (principal) | CPT/HCPCS: 96372; J2315 ==

== ENCOUNTER 2025-02-09 13:42 | Outpatient (AMB) | payer OTHER, SELFPAY ==
--- OUTSIDE RECORDS SUMMARY | 2025-02-09 13:44 | XMS_ITS ---
Demographics Address [address] [place] [address] Home Phone Mobile Phone Email Address Preferred Language en Marital Status Single Yarsanism Affiliation Unknown Race White Ethnic Group Not or Lati no Author Organization [address] Address [address] [place] [phone] Phone Care Team Providers Care Curriculum Specialist Name Role Phone Slava Medrano MD Primary Care Provider [facility] - Transportation Status:Ongoing (Active) Start date:10/24/2024 Enrollment date:10/24/2024 Related social drivers of health:Transportation Related program episode:Community Health Worker Program (Closed) Overview Community Health Worker Program - Transportation Service Episode Case Team Name Relationship Phone Carmen Quesada Community Health Worker(Responsi ble Staff) Continued Care and Services Coordination
--- NOTE | 2025-02-09 13:49 | A.OFFVIS_ITS ---
Vital Signs 02/09/25 13:59 Pulse 75 Pulse Source Pulse Oximeter Pulse Oximetry (%) 98 Oxygen Delivery Method Room Air Intake Visit Reasons: Mat visit Allergies No Known Allergies Allergy (Verified 02/09/25 14:02) HPI HPI Mat visit: Details: He is doing well. HPI Comments Details: He is doing well. He has no complaints. [facility] Medical History Diverticulitis Review of Systems Const All systems reviewed & are unremarkable except as noted in HPI and below Physical Exam Vital Signs: Last Vital Signs Pulse 75 02/09/25 13:59 Pulse Ox 98 02/09/25 13:59 Oxygen Delivery Method Room Air 02/09/25 13:59 Const General: cooperative Assessment & Plan Assessment & Plan (1) Alcohol use disorder, severe, dependence: Code(s): F10.20 - Alcohol dependence, uncomplicated Category: Medical Plan: Continue current care See as scheduled. Orders: Orders AMB Naltrexone Injection Patient Supplied (NC) 02/09/25 F10.20 - Alcohol dependence, uncomplicated Medications: New Vivitrol ER (naltrexone microspheres) 380 mg IM ONCE 1 ea 0RF NS F10.20 - Alcohol dependence, uncomplicated naltrexone microspheres ER 380 mg IM Q4W 1 ea 5RF 30 days naltrexone microspheres ER 380 mg IM Q4W 1 ea 5RF 30 days Coding Level of Care Code Est Pt Level 3 (50467) Diagnoses Alcohol use disorder, severe, dependence F10.20
[2025-02-09 13:59] VITALS: PULSE 75; O2SAT 98
== END 2025-02-09 14:36 | disposition home or self-care (01) ==
PROVIDERS: Visit Provider Internal Medicine
DX: F10.20 Alcohol dependence, uncomplicated (principal)
CPT/HCPCS: 99213

== ENCOUNTER → 2025-02-09 13:42 | Outpatient (BNVA) | payer SELFPAY | PROVIDERS: Visit Provider Internal Medicine | DX: F10.20 Alcohol dependence, uncomplicated (principal) | CPT/HCPCS: 99212 ==

== ENCOUNTER 2025-02-27 14:51 | Outpatient (AMB) | payer OTHER, SELFPAY ==
[2025-02-27 15:11] VITALS: BP 100/60; PULSE 76; O2SAT 97
--- NOTE | 2025-02-27 15:11 | AM.OFFVISNUR ---
Vital Signs 02/27/25 15:11 Weight 70.307 kg BP 100/60 Pulse 76 Pulse Oximetry (%) 97 Intake Visit Reasons: Vivitrol Allergies No Known Allergies Allergy (Verified 02/27/25 15:12) Nursing Note Petey is present for his 4 week Vivitrol injection. Petey is alert and oriented and cooperative with care. He recently celebrated his one year sobriety anniversary on February 20 and reports stability in recovery. Petey actively attends AA and reports that his job is going well, he did report a court date on 03/15 for which he is a bit nervous. Letter to document treatment compliance given. Follow up in 4 weeks for next injection. Office Meds Vivitrol 380 mg intramuscular suspension,extended release Performing Provider: Deanne Lima MD Performing Location: [facility] Administered by: Lisbeth Billingsley RN on 02/27/25 15:34 Dose Route Admin Location Dispensed Lot Number Expiration Date [facility] Compliance Professional 380 mg IM LG 380 mg 04/01/27 31020-003-10 [employer] Total Dispensed Waste 380 mg 0 % Comments: Pt here for 4 week Vivitrol 380 mg injection. Pt denies any concern with previous injections and tolerated injection well. Educated on signs and symptoms of infection and encouraged to call [facility] with any related questions or concerns, pt verbalized understanding. Follow-up scheduled in 4 weeks for next injection. Assessment & Plan Assessment & Plan Orders: Orders AMB Naltrexone Injection Patient Supplied (NC) Today F10.20 - Alcohol dependence, uncomplicated Coding
--- OUTSIDE RECORDS SUMMARY | 2025-02-27 15:40 | XMS_ITS ---
Author Name [facility] Organization Unknown Care Team Organization Name Specialty Phone Email Start Date End [facility] Slava Medrano Primary Care 01/08/202303/02 [facility] Mechelle Robles DO Primary Care 10/07/202203/02 [facility] NULL Primary Care 06/09/2022 03/20/2024
--- OUTSIDE RECORDS SUMMARY | 2025-02-27 15:40 | XMS_ITS ---
Demographics Address [address] [place] [address] Home Phone Mobile Phone Email Address Preferred Language en Marital Status Single Amish Affiliation Unknown Race White Ethnic Group Not or Lati no Author Organization [address] Address [address] [place] [phone] Phone Care Team Providers Care Pig Conveyor Operator Name Role Phone Slava Medrano MD Primary Care Provider [facility] - Transportation Status:Ongoing (Active) Start date:10/24/2024 Enrollment date:10/24/2024 Related social drivers of health:Transportation Related program episode:Community Health Worker Program (Closed) Overview Community Health Worker Program - Transportation Service Episode Case Team Name Relationship Phone Carmen Quesada Community Health Worker(Responsi ble Staff) Continued Care and Services Coordination
== END 2025-02-27 15:33 | disposition home or self-care (01) ==
LOC: HO.HCC 14:51
DX: F10.20 Alcohol dependence, uncomplicated (principal)

== ENCOUNTER → 2025-02-27 14:51 | Outpatient (BNVA) | payer SELFPAY | DX: F10.20 Alcohol dependence, uncomplicated (principal) | CPT/HCPCS: 96372; J2315 ==

== ENCOUNTER 2025-03-29 15:21 | Outpatient (AMB) | payer OTHER, SELFPAY ==
--- NOTE | 2025-03-29 15:22 | AM.OFFVISNUR ---
Vital Signs 03/29/25 15:27 Height 5 ft 7 in Weight 72.575 kg BMI 25.1 BP 100/60 Pulse 72 Pulse Oximetry (%) 98 Intake Visit Reasons: Injection Allergies No Known Allergies Allergy (Verified 03/29/25 15:28) Nursing Note Petey is present for his 4 week Vivitrol injection. Petey is alert,oriented, cooperative with care and presents with appropriate affect; he reports stability in recovery. Petey actively attends AA, has good support from his sponsor and reports that his job is going well. He showed some frustration with his court case getting delayed again, but will do what needs to be done to resolve the issue. Follow up made in four weeks for the next injection. Office Meds Vivitrol 380 mg intramuscular suspension,extended release Performing Provider: Deanne Lima MD Performing Location: [facility] Administered by: Lisbeth Billingsley RN on 03/29/25 15:51 Dose Route Admin Location Dispensed Lot Number Expiration Date [facility] Furrier Apprentice 380 mg IM RG 380 mg 2025-1013T 08/01/27 27753-422-05 [employer] Total Dispensed Waste 380 mg 0 % Comments: Pt is present for 4 week Vivitrol 380 mg injection. Pt denies any concern with previous injections and tolerated injection well. Educated on signs and symptoms of infection and encouraged to call [facility] with any related questions or concerns, pt verbalized understanding. Follow-up scheduled in 4 weeks for next injection. Assessment & Plan Assessment & Plan Orders: Orders AMB Naltrexone Injection Patient Supplied (NC) Today F10.20 - Alcohol dependence, uncomplicated Coding
[2025-03-29 15:27] VITALS: BP 100/60; PULSE 72; O2SAT 98; BMI 25.1
--- OUTSIDE RECORDS SUMMARY | 2025-03-29 15:52 | XMS_ITS ---
Demographics Address [address] [place] [address] Home Phone Mobile Phone Email Address Preferred Language en Marital Status Single Uatsdin Affiliation Unknown Race White Ethnic Group Not or Lati no Author Organization [address] Address [address] [place] [phone] Phone Care Team Providers Care Chef De Partie Name Role Phone Slava Medrano MD Primary Care Provider [facility] - Transportation Status:Ongoing (Active) Start date:10/24/2024 Enrollment date:10/24/2024 Related social drivers of health:Transportation Related program episode:Community Health Worker Program (Closed) Overview Community Health Worker Program - Transportation Service Episode Case Team Name Relationship Phone Carmen Quesada Community Health Worker(Responsi ble Staff) Continued Care and Services Coordination
--- OUTSIDE RECORDS SUMMARY | 2025-03-29 15:52 | XMS_ITS | Clinical Summary ---
Demographics Address [address] [place] [address] Home Phone Mobile Phone Email Address Preferred Language en Marital Status Single Shinto Affiliation Unknown Race White Ethnic Group Not or Lati no Author Organization [address] [facility] Address [address] [address] Phone Care Team Providers Care Patient Financial Advocate Name Role Phone Slava Medrano MD Primary Care Provider Allergies No known active allergies Medications OLANZapine (ZyPREXA) 10 mg tablet Take 1 Tab by mouth 2 times daily. 11/21/19 20 Active traZODone (DESYREL) 100 mg tablet Take 100 mg by mouth at bedtime. Active LORazepam (ATIVAN) 1 mg tablet Take 1 tablet (1 mg total) by mouth. 10/14/19 25 Active bisacodyL (DULCOLAX) 5 mg EC tablet Take 2 tablets by mouth right before beginning bowel prep. See instructions provided by the office 2 tablet 01/30/20 25 Active polyethylene glycol (Golytely) 236-22.74-6.74 -5.86 gram solution Take 4L by mouth once for one dose. May substitue any PEG. Starting at 6PM the night before your procedure drink 1 8oz glasses at your own pace until you complete half of the gallon. Finish 2nd half of the gallon 5 hours before your procedure. 4000 mL 01/30/20 25 Active polyethylene glycol (Golytely) 236-22.74-6.74 -5.86 gram solution Take 4L by mouth once for one dose. May substitue any PEG. Starting at 2PM the day before your procedure drink 1 8oz glasses at your own pace until you complete half of the gallon. Finish 2nd half of the gallon at 8PM. 4000 mL 02/06/20 25 Active bisacodyL (DULCOLAX) 5 mg EC tablet Take 2 tablets by mouth right before beginning bowel prep. See instructions provided by the office 2 tablet 02/06/20 25 Active VivitroL 380 mg suspension,extend ed rel recon intramuscular suspension 12/12/19 Active Active Problems Problem Noted Date Diagnosed Date Alcohol abuse 01/23/2021 Agitation 12/16/2020 Anger 12/16/2020 Anxiety disorder 12/16/2020 Encounters Date Type Department Care Team Description 02/13/2025 2:05 PM EDT Anesthesia Event [facility] Endoscopy [address] [place] [address] Steven Yang MD 02/13/2025 1:16 PM EDT - 02/13/2025 11:59 PM EDT Hospital Encounter [facility] Endoscopy [address] [place] [address] Carlyle Moreno MD Hayes, Brett L, CRNA Chang, Daniel J, MD Colon cancer screening Discharge Disposition: Home or Self Care from Last 3 Months Immunizations Name Administration Dates Next Due Influenza Quadravalent, MDCK , 0.5ml, preservative free (Flucelvax) 6mo and older 04/07/2019 Tdap Tetanus diptheria acell ular pertussis (Boostrix; Adacel) 7yo and older 03/18/2021 Surgical History Surgery Date Site/Laterality Comments LEG SURGERY PROCEDURE: HISTORICAL LEG SURGERY; COMMENT: age 15-20 R leg multiple surgeries [facility] Medical History Medical History Date Comments Anger DX:Anger Anxiety disorder DX:Anxiety diso rder Agitation DX:Agitation Bipolar affective (CMS/HCC V24, CMS/HCC V28) History of ETOH abuse Liver abscess Family History Relation Name Status Comments Father Alive Mother Alive Social History Tobacco Use Types Packs/Day Years Used Date Smoking Tobacco: Every Day Cigarettes 1 9.7 Started: 08/02/2015 Smokeless Tobacco: Never Tobacco Cessation:Ready to Q uit: Not Asked; Counseling Given: Not Answered Alcohol Use Standard Drinks/Week Comments Not Currently 0 (1 standard drink = 0.6 oz [...] for your loved ones. For example, child support specialist or elderly care for an older adult? [...] What is your living situation? 0 10/23/2024 Interpersonal Safety Answer Date Record ed Physical Abuse 02/13/2025 Verbal Abuse 02/13/2025 Sex and Gender Information Value Date Recorded Sex Assigned at Not on file Legal Sex Male 4:41 PM EST Gender Identity Not on file Sexual Orientation Not on file Obstetrics History Last Filed Vital Signs Vital Sign Reading Time Taken Comments Blood Pressure 113/78 02/13/2025 2:40 PM EDT Pulse 72 02/13/2025 2:40 PM EDT Temperature 36.4 C (97.6 F) 02/13/2025 2:20 PM EDT Respiratory Rate 18 02/13/2025 2:40 PM EDT Oxygen Saturation 100% 02/13/2025 2:40 PM EDT Inhaled Oxygen Concentration - - Weight 72.6 kg (160 lb) 02/06/2025 12:00 PM EDT Height 170.2 cm (5' 7 ) 02/06/2025 12:00 PM EDT Body Mass Index 25.06 02/06/2025 12:00 PM EDT Plan of Treatment Upcoming Encounters Date Type Department Care Team (Late st Contact Info) Description 04/16/2025 10:30 AM EDT Office Visit Adult Medicine [address] [phone] Slava Medrano MD [address] [place] [phone] Health Maintenance Due Date Last Done Comments Hepatitis A Vaccines (1 of 2 - Risk 2-dose series) 1997 Hepatitis B Vaccines (1 of 3 - 19+ 3-dose series) 1997 Pneumococcal Vaccine: Pediatrics (0 to 5 Years) and At-Risk Patients (6 to 49 Years) (1 of 2 - PCV) 1997 Hepatitis C Screening 07/01/2022 COVID-19 Vaccine (3 - 2023-2 5 season) 2024 02/18/2021, 01/21/2021 Depression Screening 08/02/2024 Influenza Vaccine (#1) 2025 9, 05/07/2018 Social Influencers of Health Screening 10/23/2025 10/23/2024 Cholesterol Screening (Lipid Panel) 12/15/2029 12/15/2024 DTaP,Tdap,and Td Vaccines (4 - Td or Tdap) 08/09/2031 08/09/2021, 03/18/2021, 01/12/2012 Colorectal Cancer Screening: Colonoscopy 02/13/2035 02/13/2025 HIV Screening Completed 12/15/2024 HIB Vaccines Aged Out No longer eligi [...] Procedure Name Priority Date/Time Associated Diagnosis Comments COLONOSCOPY Routine 02/13/2025 2:19 PM EDT Colon cancer screening HIV 1, 2 ANTIBODY, P24 ANTIGEN WITH REFLEX TO DIFFERENTIATION Routine 12/15/2024 2:10 PM EDT Screening examination for venereal disease Screening for human immunodeficiency virus LIPID PANEL WITH REFLEX TO DIRECT LDL Routine 12/15/2024 2:10 PM EDT Liver abscess Screening cholesterol level from Last 3 Months or Most Recently Relevant to Health Maintenance Results * COLONOSCOPY Anesthesia - MAC; [facility] ENDOSCOPY (02/13/2025 2:19 PM EDT) Anatomical Region Laterality Modality Endoscopy 02/13/2025 2:00 PM EDT Impressions 02/13/2025 2:20 PM EDT - Diverticulosis in the sigmoid colon. - Non-bleeding internal hemorrhoids. - The examination was otherwise normal on direct and retroflexion views. - No specimens collected. Recommendation: - Discharge patient to home. - High fiber diet. - Continue present medications. - Repeat colonoscopy in 10 years for surveillance. - Return to GI office PRN. Arie 02/13/2025 2:20 PM EDT [facility] GI Patient Name: Petey Philip Procedure Date: 02/13/2025 2:00 PM Date of : 1980 Age: 44 Room: ROOM 17 Gender: Male Note Status: Finalized Attending MD: Carlyle Moreno MD, Procedure Date No Time: 02/13/2025 Procedure: Colonoscopy Indications: Screening for colorectal malignant neoplasm Providers: Carlyle Moreno MD Referring MD: Carlyle Moreno MD Medicines: Monitored Anesthesia Care Complications: No immediate complications. Estimated Blood Loss: Estimated blood loss: none. Procedure: Pre-Anesthesia Assessment: - ASA Grade Assessment: II - A patient with mild systemic disease. - After reviewing the risks and benefits, the patient was deemed in satisfactory condition to undergo the procedure. After I obtained informed consent, the scope was passed under direct vision. Throughout the procedure, the patient's blood pressure, pulse, and oxygen saturations were monitored continuously.The Olympus Pediatric Colonoscope was introduced through the anus and advanced to the cecum, identified by appendiceal orifice and ileocecal valve. The colonoscopy was performed without difficulty. The patient tolerated the procedure well. The quality of the bowel preparation was good. Findings: Multiple small-mouthed diverticula were found in the sigmoid colon. Non-bleeding internal hemorrhoids were found during retroflexion. The hemorrhoids were small. The exam was otherwise without abnormality on direct and retroflexion views. Procedure Code(s): --- Professional --- G0121, Colorectal cancer screening; colonoscopy on individual not meeting criteria for high risk Diagnosis Code(s): --- Professional --- Z12.11, Encounter for screening for malignant neoplasm of colon CPT copyright 2020 [employer]. All rights reserved. The codes documented in this report are preliminary and upon progress worker review may be revised to meet current compliance requirements. Carlyle Moreno MD 02/13/2025 2:20:28 PM This report has been signed electronically.Carlyle Moreno MD Number of Addenda: 0 Note Initiated On: 02/13/2025 2:00 PM Scope In: Scope Out: Endoscopy Department at [facility] - [address] [place] [phone] Procedure Note Carlyle Moreno MD - 02/13/2025 [facility] GI Patient Name: Petey Philip Procedure Date: 02/13/2025 2:00 PM Date of : 1980 Age: 44 Room: ROOM 17 Gender: Male Note Status: Finalized Attending MD: Carlyle Moreno MD, Procedure Date No Time: 02/13/2025 Procedure: Colonoscopy Indications: Screening for colorectal malignant neoplasm Providers: Carlyle Moreno MD Referring MD: Carlyle Moreno MD Medicines: Monitored Anesthesia Care Complications: No immediate complications. Estimated Blood Loss: Estimated blood loss: none. Procedure: Pre-Anesthesia Assessment: - ASA Grade Assessment: II - A patient with mild systemic disease. - After reviewing the risks and benefits, thepatient was deemed in satisfactory condition to undergo the procedure. After I obtained informed consent, the scope was passed under direct vision. Throughout theprocedure, the patient's blood pressure, pulse, and oxygen saturations were monitored continuously.The Olympus Pediatric Colonoscope was introduced through theanus and advanced to the cecum, identified byappendiceal orifice and ileocecal valve. The colonoscopy was performed without difficulty. The patient tolerated the procedure well. The quality of the bowel preparation was good. Findings: Multiple small-mouthed diverticula were found inthe sigmoid colon. Non-bleeding internal hemorrhoids were found during retroflexion. The hemorrhoids were small. The exam was otherwise without abnormality ondirect and retroflexion views. Procedure Code(s): --- Professional --- G0121, Colorectal cancer screening; colonoscopy on individual not meeting criteria for high risk Diagnosis Code(s): --- Professional --- Z12.11, Encounter for screening for malignantneoplasm of colon CPT copyright 2020 [employer]. All rights reserved. The codes documented in this report are preliminary and upon progress worker reviewmay be revised to meet current compliance requirements. Carlyle Moreno MD 02/13/2025 2:20:28 PM This report has been signed electronically.Carlyle Moreno MD Number of Addenda: 0 Note Initiated On: 02/13/2025 2:00 PM Scope In: Scope Out: Endoscopy Department at [facility] - [address] [place] [id number] IMPRESSION: - Diverticulosis in the sigmoid colon. - Non-bleeding internal hemorrhoids. - The examination was otherwise normal on directand retroflexion views. - No specimens collected. Recommendation: - Discharge patient to home. - High fiber diet. - Continue present medications. - Repeat colonoscopy in 10 years forsurveillance. - Return to GI office PRN. Carlyle Moreno MD GI~PROCEDURE ORDERABLES Final Result * HIV 1,2 antibody, p24 antigen with reflex to differentiation (12/15/2024 2:10 PM EDT) [facility] HIV Combo AB/AG Negative Negative LAB CHEMISTRY METHOD 12/15/2024 5:40 PM EDT [facility] Blood Venous blood specimen / Unknown Venipuncture / Unknown 12/15/2024 2:10 PM EDT 12/15/2024 2:10 PM EDT Narrative [facility] - 12/15/2024 5:40 PM EDT This assay is a 4th generation assay allowing for earlier detection of HIV infection by detecting the presence of the HIV-1 p24 antigen as well as the traditional antibodies to HIV type 1 (including group O) and type 2. Use of a 4th generation assay is the current CDC recommendation for HIV screening. Marta Villanueva NP LAB BLOOD ORDERABLES Final Re sult [facility] [address] [place] [address], [place] [phone] * (ABNORMAL) Lipid panel with reflex to direct LDL (12/15/2024 2:10 PM EDT) [facility] Cholesterol 124 0 - 200 mg/dL LAB CHEMISTRY METHOD 12/15/2024 4:19 PM EDT [facility] Triglycerides 89 0 - 150 mg/dL LAB CHEMISTRY METHOD 12/15/2024 4:19 PM EDT [facility] HDL 35(L) >=40 mg/dL LAB CHEMISTRY METHOD 12/15/2024 4:19 PM EDT [facility] LDL Calculated 71 0 - 100 mg/dL LAB CHEMISTRY METHOD 12/15/2024 4:19 PM EDT [facility] VLDL Cholesterol Umair 17.8 mg/dL LAB CHEMISTRY METHOD 12/15/2024 4:19 PM EDT [facility] Non HDL Chol. (LDL+VLDL) 89 <145 mg/dL LAB CHEMISTRY METHOD 12/15/2024 4:19 PM EDT [facility] Chol/HDL Ratio 3.5 0.0 - 4.4 LAB CHEMISTRY METHOD 12/15/2024 4:19 PM EDT [facility] Blood Venous blood specimen / Unknown Venipuncture / Unknown 12/15/2024 2:10 PM EDT 12/15/2024 2:10 PM EDT Deanne DONNELLY LAB BLOOD ORDERABLES Fin al Result [facility] [address] [place] [address], from Last 3 Months or Most Recently Relevant to Health Maintenance Insurance * Guarantor: Petey Philip Account Type Relation to Patient Date of Phone Billing Address Personal/Family Self [address] [place] [address] MEDICAID - [place] [facility] Care Teams Patient Financial Advocate Relationship Specialty Start Date End Date Slava Medrano MD [address] [place] [phone] PCP - General 10/06/22
--- OUTSIDE RECORDS SUMMARY | 2025-03-29 15:52 | XMS_ITS ---
Demographics Address [address] [place] [address] Home Phone Mobile Phone Email Address Preferred Language en Marital Status Single Samaritan Affiliation Unknown Race White Ethnic Group Not or Lati no Author Organization [address] Address [address] [place] [phone] Phone Care Team Providers Care Law Firm Partner Name Role Phone Slava Medrano MD Primary Care Provider [phone] [facility] - Food Insecurity Status:Ongoing (Active) Start date:10/24/2024 Enrollment date:10/24/2024 Enrollment reason:Referred by Care Team Related social drivers of health:Food Risk Related program episode:Community Health Worker Program (Closed) Overview Community Health Worker Program - Food Insecurity Service Episode Case Team Name Relationship Phone Carmen Quesada Community Health Worker(Responsi ble Staff) Continued Care and Services Coordination
== END 2025-03-29 16:13 | disposition home or self-care (01) ==
LOC: HO.HCC 15:21
DX: F10.20 Alcohol dependence, uncomplicated (principal)

== ENCOUNTER → 2025-03-29 15:21 | Outpatient (BNVA) | payer OTHER, SELFPAY | DX: F10.20 Alcohol dependence, uncomplicated (principal) | CPT/HCPCS: 96372; J2315 ==

== ENCOUNTER 2025-04-25 09:58 | Outpatient (AMB) | payer OTHER, SELFPAY ==
--- OUTSIDE RECORDS SUMMARY | 2025-04-23 08:15 | XMS_ITS | Encounter Summary ---
Author Organization [facility] Address [address] [place] [address] Care Team Providers Care Machine Erector Name Role Phone Slava Medrano MD Primary Care Provider [phone] Reason for Referral * Imaging (Routine) - Pending Review Specialty Diagnoses / Procedures Referred By Contac t Referred To Contact Radiology Diagnoses Liver abscess Procedures US Abdomen Limited Slava Medrano MD [address] [place] [address] Phone: tel: fax: [address] Phone: tel: Referral ID Status Reason Start Date Expiration Date V isits Requested Visits Authorized [id number] Pending Review 04/16/2025 04/16/2026 1 1 Reason for Visit * Imaging (Routine) - Pending Review Specialty Diagnoses / Procedures Referred By Contac t Referred To Contact Radiology Diagnoses Liver abscess Procedures US Abdomen Limited Slava Medrano MD [address] [place] [address] Phone: tel: fax: [address] Phone: tel: Referral ID Status Reason Start Date Expiration Date V isits Requested Visits Authorized [id number] Pending Review 04/16/2025 04/16/2026 1 1 Encounter Details Date Type Department Care Team (Latest Contact Info) Description 04/23/2025 8:15 AM EDT - 04/23/2025 11:59 PM EDT Hospital Encounter [facility] [address] [place] [address] Liver abscess Discharge Disposition: Home or Self Care Social History Tobacco Use Types Packs/Day Years Used Date Smoking Tobacco: Every Day Cigarettes 1 9.7 Started: 08/02/2015 Smokeless Tobacco: Never Alcohol Use Standard Drinks/Week Comments Not Currently [...] care for your loved ones. For example, salesperson children's shoes or elderly care for an older adult? [...] on file documented as of this encounter Medications at Time of Discharge LORazepam (ATIVAN) 1 mg tablet Take 1 tablet (1 mg total) by mouth. 10/13/2024 nicotine (NICODERM CQ) 21 mg/[address] 1 patch on the skin 1 (one) time each day at the same time. 30 each 1 04/16/2025 OLANZapine (ZyPREXA) 10 mg tablet Take 1 Tab by mouth 2 times daily. 11/21/2019 VivitroL 380 mg suspension,extended rel recon intramuscular suspension 12/11/2024 documented as of this encounter Discharge Disposition Disposition Code Departure Means Destination Home or Self Care documented in this encounter Plan of Treatment Upcoming Encounters Date Type Department Care Team (Late st Contact Info) Description 10/15/2025 4:00 PM EDT Office Visit Adult Medicine [address] [phone] Slava Medrano MD [address] [place] [address] documented as of this encounter Procedures Procedure Name Priority Date/Time Associated Diagnosis Comments US ABDOMEN LIMITED Routine 04/23/2025 8: 43 AM EDT Liver abscess documented in this encounter Results * US Abdomen Limited (04/23/2025 8:43 AM EDT) Anatomical Region Laterality Modality Body Ultrasound 04/23/2025 9:04 AM EDT Impressions 04/23/2025 9:07 AM EDT No hepatic abnormality identified. -------- FINAL REPORT -------- Dictated By: Debbie Bernal Dictated Date: 04/23/2025 09:04 ET Assigned Physician: Debbie Bernal Reviewed and Electronically Signed By: Debbie Bernal Signed Date: 04/23/2025 09:07 ET Workstation ID: [id number] Transcribed By: Self Edit Transcribed Date: 04/23/2025 09:04 ET Narrative 04/23/2025 9:07 AM EDT EXAM: Abdomen ultrasound, limited HISTORY: History of a liver abscess status post drainage 6 months ago. COMPARISON: None FINDINGS: Liver: Normal in size measuring 14.4 cm in craniocaudad extent. Parenchymal echotexture appears within normal limits. No solid or cystic lesion identified. Gallbladder/Biliary Tree: Gallbladder lumen appears clear without wall thickening or pericholecystic fluid. No intra or extrahepatic biliary ductal dilatation. The common bile duct measures 0.3 cm. Pancreas: No abnormality detected. Right kidney: Normal in size measuring 10.4 cm in craniocaudad extent. No hydronephrosis, focal lesions, or shadowing stones. Vasculature: Hepatopedal flow in the main portal vein. Procedure Note Debbie Bernal MD - 04/23/2025 EXAM: Abdomen ultrasound, limited HISTORY: History of a liver abscess status post drainage 6 months ago. COMPARISON: None FINDINGS: Liver: Normal in size measuring 14.4 cm in craniocaudad extent.Parenchymal echotexture appears within normal limits. No solid or cysticlesion identified. Gallbladder/Biliary Tree: Gallbladder lumen appears clear without wallthickening or pericholecystic fluid. No intra or extrahepatic biliaryductal dilatation. The common bile duct measures 0.3 cm. Pancreas: No abnormality detected. Right kidney: Normal in size measuring 10.4 cm in craniocaudad extent. Nohydronephrosis, focal lesions, or shadowing stones. Vasculature: Hepatopedal flow in the main portal vein. IMPRESSION: No hepatic abnormality identified. -------- FINAL REPORT -------- Dictated By: Debbie Bernal Dictated Date: 04/23/2025 09:04 ET Assigned Physician: Debbie Bernal Reviewed and Electronically Signed By: Debbie Bernal Signed Date: 04/23/2025 09:07 ET Workstation ID: [id number] Transcribed By: Self Edit Transcribed Date: 04/23/2025 09:04 ET us Slava Medrano MD IMG US PROCEDURES Final Res ult documented in this encounter Visit Diagnoses Diagnosis Liver abscess Abscess of liver documented in this encounter Care Teams Machine Erector Relationship Specialty Start Date End Date Slava Medrano MD [address] [place] [phone] PCP - General 10/06/22 documented as of this encounter
--- NOTE | 2025-04-25 10:01 | AM.OFFVISNUR ---
Vital Signs 04/25/25 10:11 BP 100/60 Pulse 66 Pulse Oximetry (%) 97 Intake Visit Reasons: injection Allergies No Known Allergies Allergy (Verified 04/25/25 10:12) Nursing Note Kwame is present today for his 4 week Vivitrol injection. Kwame reports stability in recovery and has been getting the injection for one year this month. Kwame is alert, oriented, cooperative and presents with an appropriate affect. Kwame questioned the standard length of injections, which was explained, and decided to try an extra week inbetween injections. 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 Next appointment in 5 weeks, will touch base with provider and get injection. Office Meds Vivitrol 380 mg intramuscular suspension,extended release Performing Provider: Deanne Lima MD Performing Location: [facility] Administered by: Lisbeth Billingsley RN on 04/25/25 10:51 Dose Route Admin Location Dispensed Lot Number Expiration Date [facility] Mason[employer] Contractor Administrator 380 mg IM LG 380 mg 2025-1015T 09/01/27 64700-659-88 [employer] Total Dispensed Waste 380 mg 0 % Comments: Pt is present for Vivitrol injection, pt denies complications with previous injections and tolerated injection well. Pt educated on signs and symptoms of infection at the injection site, urged to call [facility] with any questions or concerns. Follow up appointment made in 4 weeks for next injection. Assessment & Plan Assessment & Plan Orders: Orders AMB Naltrexone Injection Patient Supplied (NC) Today F10.20 - Alcohol dependence, uncomplicated Coding
[2025-04-25 10:11] VITALS: BP 100/60; PULSE 66; O2SAT 97
--- OUTSIDE RECORDS SUMMARY | 2025-04-25 12:03 | XMS_ITS ---
Demographics Address [address] [place] [address] Home Phone Mobile Phone Email Address Preferred Language en Marital Status Single Congregational Affiliation Unknown Race White Ethnic Group Not or Lati no Author Organization [address] Address [address] [place] [address] Phone Care Team Providers Care Network Security Analyst Name Role Phone Slava Medrano MD Primary Care Provider [phone] [facility] - Food Insecurity Status:Ongoing (Active) Start date:10/24/2024 Enrollment date:10/24/2024 Enrollment reason:Referred by Care Team Related social drivers of health:Food Risk Related program episode:Community Health Worker Program (Closed) Overview Community Health Worker Program - Food Insecurity Service Episode Case Team Name Relationship Phone Carmen Quesada Community Health Worker(Responsi ble Staff) Continued Care and Services Coordination
--- OUTSIDE RECORDS SUMMARY | 2025-04-25 12:03 | XMS_ITS ---
Demographics Address [address] [place] [address] Home Phone Mobile Phone Email Address Preferred Language en Marital Status Single Jew Affiliation Unknown Race White Ethnic Group Not or Lati no Author Organization [address] Address [address] [place] [phone] Phone Care Team Providers Care Charge Machine Operator Name Role Phone Slava Medrano MD [...]
--- OUTSIDE RECORDS SUMMARY | 2025-04-25 12:04 | XMS_ITS | Clinical Summary ---
Demographics Address [address] [place] [address] Home Phone Mobile Phone Email Address Preferred Language en Marital Status Single Christianity Affiliation Unknown Race White Ethnic Group Not or Lati no Author Organization [address] [facility] Address [address] [place] [phone] Phone Care Team Providers Care Entry Level Assistant Manager Name Role Phone Slava Medrano MD Primary Care Provider Allergies No known active allergies Medications OLANZapine (ZyPREXA) 10 mg tablet Take 1 Tab by mouth 2 times daily. 020 Active LORazepam (ATIVAN) 1 mg tablet Take 1 tablet (1 mg total) by mouth. 025 Active VivitroL 380 mg suspension,exten ded rel recon intramuscular suspension 025 Active nicotine (NICODERM CQ) 21 mg/[address] 1 patch on the skin 1 (one) time each day at the same time. 30 each 1 025 Active traZODone (DESYREL) 100 mg tablet Take 100 mg by mouth at bedtime. 2024 Discontinued bisacodyL (DULCOLAX) 5 mg EC tablet Take 2 tablets by mouth right before beginning bowel prep. See instructions provided by the office 2 tablet 025 2024 Discontinued(T herapy completed) polyethylene glycol (Golytely) 236-22.74-6.74 -5.86 gram solution Take 4L by mouth once for one dose. May substitue any PEG. Starting at 6PM the night before your procedure drink 1 8oz glasses at your own pace until you complete half of the gallon. Finish 2nd half of the gallon 5 hours before your procedure. 4000 mL 025 2024 Discontinued(T herapy completed) polyethylene glycol (Golytely) 236-22.74-6.74 -5.86 gram solution Take 4L by mouth once for one dose. May substitue any PEG. Starting at 2PM the day before your procedure drink 1 8oz glasses at your own pace until you complete half of the gallon. Finish 2nd half of the gallon at 8PM. 4000 mL 025 2024 Discontinued(T herapy completed) bisacodyL (DULCOLAX) 5 mg EC tablet Take 2 tablets by mouth right before beginning bowel prep. See instructions provided by the office 2 tablet 025 2024 Discontinued(T herapy completed) Active Problems Problem Noted Date Diagnosed Date Alcohol abuse 01/23/2021 Agitation 12/16/2020 Anger 12/16/2020 Anxiety disorder 12/16/2020 Encounters Date Type Department Care Team Description 04/23/2025 8:15 AM EDT - 04/23/2025 11:59 PM EDT Hospital Encounter [facility]ound - [facility] [address] [place] [address] Liver abscess Discharge Disposition: Home or Self Care 04/16/2025 10:30 AM EDT Office Visit Adult Medicine [address] [phone] Slava Medrano MD Rotator cuff arthropathy of right shoulder (Primary Dx); Liver abscess; Prediabetes; Cigarette smoker; Bipolar 1 disorder (CMS/HCC V24, CMS/HCC V28) 02/13/2025 2:05 PM EDT Anesthesia Event [facility] Endoscopy [address] [place] [phone] Steven Yang MD 02/13/2025 1:16 PM EDT - 02/13/2025 11:59 PM EDT Hospital Encounter [facility] Endoscopy [address] [place] [phone] Carlyle Moreno MD Hayes, Brett L, Steven Dick MD Colon cancer screening Discharge Disposition: Home or Self Care from Last 3 Months Immunizations Name Administration Dates Next Due Influenza Quadravalent, MDCK , 0.5ml, preservative free (Flucelvax) 6mo and older 04/07/2019 Tdap Tetanus diptheria acell ular pertussis (Boostrix; Adacel) 7yo and older 03/18/2021 Surgical History Surgery Date Site/Laterality Comments LEG SURGERY PROCEDURE: HISTORICAL LEG SURGERY; COMMENT: age 15-20 R leg multiple surgeries [facility] Medical History Medical History Date Comments Anger DX:Anger Anxiety disorder DX:Anxiety diso rder Agitation DX:Agitation Bipolar affective (CMS/[facility] V24, CMS/[facility] V28) History of ETOH abuse Liver abscess [...] care for your loved ones. For example, early childhood educator aide or elderly care for an older adult? [...] Sign Reading Time Taken Comments Blood Pressure 100/67 04/16/2025 10:14 AM EDT Pulse 66 04/16/2025 10:14 AM EDT Temperature 36.4 C (97.6 F) 04/16/2025 10:14 AM EDT Respiratory Rate 18 02/13/2025 2:40 PM EDT Oxygen Saturation 100% 02/13/2025 2:40 PM EDT Inhaled Oxygen Concentration - - Weight 71.2 kg (157 lb) 04/16/2025 10:14 AM EDT Height 170.2 cm (5' 7 ) 04/16/2025 10:14 AM EDT Body Mass Index 24.59 04/16/2025 10:14 AM EDT Plan of Treatment Upcoming Encounters Date Type Department Care Team (Late st Contact Info) Description 10/15/2025 4:00 PM EDT Office Visit Adult Medicine [place] [address] [phone] Slava Medrano MD [address] [place] [address] Health Maintenance Due Date Last Done Comments Hepatitis A Vaccines (1 of 2 - Risk 2-dose series) 1997 Hepatitis B Vaccines (1 of 3 - 19+ 3-dose series) 1997 Pneumococcal Vaccine: Pediatrics (0 to 5 Years) and At-Risk Patients (6 to 49 Years) (1 of 2 - PCV) 1997 Hepatitis C Screening 07/01/2022 Depression Screening 08/02/2024 COVID-19 Vaccine (3 - 2024-2 6 season) 2025 02/18/2021, 01/21/2021 Influenza Vaccine (#1) 2025 9, 05/07/2018 Social Influencers of Health Screening 10/23/2025 10/23/2024 Cholesterol Screening (Lipid Panel) 12/15/2029 12/15/2024 DTaP,Tdap,and Td Vaccines (4 - Td or Tdap) 08/09/2031 08/09/2021, 03/18/2021, 01/12/2012 Colorectal Cancer Screening: Colonoscopy 02/13/2035 02/13/2025 RSV Immunization Adult Patients (1 - 1-dose 75+ series) 2053 HIV Screening Completed 12/15/2024 HIB Vaccines Aged [...] 04/23/2025 8: 43 AM EDT Liver abscess COMPREHENSIVE METABOLIC PANEL Routine 04/16/2025 10:43 AM EDT Liver abscess HEMOGLOBIN A1C Routine 04/16/2025 10:43 AM EDT Prediabetes COLONOSCOPY Routine 02/13/2025 2:19 PM EDT Colon [...] Recently Relevant to Health Maintenance Results * US Abdomen Limited (04/23/2025 8:43 AM EDT) Anatomical Region Laterality Modality Body Ultrasound 04/23/2025 9:04 AM EDT Impressions 04/23/2025 9:07 AM EDT No hepatic abnormality identified. -------- FINAL REPORT -------- Dictated By: Debbie Bernal Dictated Date: 04/23/2025 09:04 ET Assigned Physician: Debbie Bernal Reviewed and Electronically Signed By: Debbie Bernal Signed Date: 04/23/2025 09:07 ET Workstation ID: [id number] Transcribed By: Self Edit Transcribed Date: 04/23/2025 [...] Signed Date: 04/23/2025 09:07 ET Workstation ID: [id number] Transcribed By: Self Edit Transcribed Date: 04/23/2025 09:04 ET us Slava Medrano MD IM US PROCEDURES Final Res ult * Hemoglobin A1c (04/16/2025 10:43 AM EDT) Hemoglobin A1C 5.8 <6.5 % LAB CHEMISTRY METHOD 04/16/2025 2:23 PM EDT [facility] Mean Bld Glu Estim. 120 mg/dL LAB CHEMISTRY METHOD 04/16/2025 2:23 PM EDT [facility] Blood Venous blood specimen / Unknown Venipuncture / Unknown 04/16/2025 10:43 AM EDT 04/16/2025 10:43 AM EDT us Slava Medrano MD LAB BLOOD ORDERABLES Final Result [facility] [address] [place] [address], [place] [phone] * Comprehensive metabolic panel (04/16/2025 10:43 AM EDT) Pathologist [facility] Sodium 138 133 - 145 mmol/L LAB CHEMISTRY METHOD 04/16/2025 3:57 PM [facility] Potassium 4.1 3.5 - 5.5 mmol/L LAB CHEMISTRY METHOD 04/16/2025 3:57 PM [facility] Chloride 104 96 - 110 mmol/L LAB CHEMISTRY METHOD 04/16/2025 3:57 PM [facility] CO2 29 21 - 32 mmol/L LAB CHEMISTRY METHOD 04/16/2025 3:57 PM [facility] Anion Gap 5 3 - 11 LAB CHEMISTRY METHOD 04/16/2025 3:57 PM [facility] Glucose 89 70 - 100 mg/dL LAB CHEMISTRY METHOD 04/16/2025 3:57 PM [facility] BUN 11 5 - 25 mg/dL LAB CHEMISTRY METHOD 04/16/2025 3:57 PM [facility] Creatinine 1.03 0.70 - 1.30 mg/dL LAB CHEMISTRY METHOD 04/16/2025 3:57 PM [facility] eGFR 91 >=60 mL/min/1. 73m2 LAB CHEMISTRY METHOD 04/16/2025 3:57 PM [facility] Comment:Calculation based on the Chronic Kidney Disease Epidemiology Collaboration (CKD-EPI) equation refit without adjustment for race. BUN/Creatinine Ratio 10.7 LAB CHEMISTRY METHOD 04/16/2025 3:57 PM [facility] Calcium 9.6 8.5 - 10.5 mg/dL LAB CHEMISTRY METHOD 04/16/2025 3:57 PM EDT [facility] AST (SGOT) 12 10 - 42 unit/L LAB CHEMISTRY METHOD 04/16/2025 3:57 PM EDT [facility] ALT (SGPT) 24 10 - 60 unit/L LAB CHEMISTRY METHOD 04/16/2025 3:57 PM EDT [facility] Alkaline Phosphatase 60 42 - 121 unit/L LAB CHEMISTRY METHOD 04/16/2025 3:57 PM EDT [facility] Total Protein 7.5 6.0 - 8.0 g/dL LAB CHEMISTRY METHOD 04/16/2025 3:57 PM EDT [facility] Albumin 4.3 3.2 - 5.0 g/dL LAB CHEMISTRY METHOD 04/16/2025 3:57 PM EDT [facility] Total Bilirubin 0.6 0.0 - 1.4 mg/dL LAB CHEMISTRY METHOD 04/16/2025 3:57 PM EDT [facility] Blood Venous blood specimen / Unknown Venipuncture / Unknown 04/16/2025 10:43 AM EDT 04/16/2025 10:43 AM EDT Slava Medrano MD LAB BLOOD ORDERABLES Final Result [facility] [address] [place] [address], * [place]OS[place] [facility] [place] [facility] [place] (02/13/2025 2:19 PM EDT) Anatomical Region [...] surveillance. - Return to GI office PRN. Narrative 02/13/2025 2:20 PM EDT [facility] GI Patient Name: Lorne Philip Procedure Date: 02/13/2025 2:00 PM Date [...] malignant neoplasm of colon CPT copyright 2020 [employer]. All rights reserved. The codes documented in this report are preliminary and upon cable installer review may be revised to meet current compliance requirements. Carlyle Moreno MD 02/13/2025 2:20:28 PM This report has been signed electronically.Carlyle Moreno MD Number of Addenda: 0 Note Initiated On: 02/13/2025 2:00 PM Scope In: Scope Out: Endoscopy Department at [facility] - [address] [place] [phone] Procedure Note Carlyle Moreno MD - 02/13/2025 [facility] GI Patient Name: Lorne Philip Procedure Date: 02/13/2025 2:00 PM Date [...] for malignantneoplasm of colon CPT copyright 2020 [employer]. All rights reserved. The codes documented in this report are preliminary and upon cable installer reviewmay be revised to meet current compliance requirements. Carlyle Moreno, MD 02/13/2025 2:20:28 PM This report has been signed electronically.Carlyle Moreno MD Number of Addenda: 0 Note Initiated On: 02/13/2025 2:00 PM Scope In: Scope Out: Endoscopy Department at [facility] - [address] [place] [phone] IMPRESSION: - Diverticulosis in the sigmoid colon. [...] reflex to differentiation (12/15/2024 2:10 PM EDT) HIV Combo AB/AG Negative Negative LAB CHEMISTRY METHOD 12/15/2024 5:40 PM EDT [facility] Blood Venous blood specimen / Unknown Venipuncture / Unknown 12/15/2024 2:10 PM EDT 12/15/2024 2:10 PM EDT Narrative [facility] - 12/15/2024 5:40 PM EDT This [...] NP LAB BLOOD ORDERABLES Final Re sult [facility] [address] [place] [address], * (ABNORMAL) Lipid panel with reflex to direct LDL (12/15/2024 2:10 PM EDT) Cholesterol 124 0 - 200 mg/dL LAB CHEMISTRY METHOD 12/15/2024 4:19 PM EDT [facility] Triglycerides 89 0 - 150 mg/dL LAB CHEMISTRY METHOD 12/15/2024 4:19 PM EDT [facility] HDL 35(L) >=40 mg/dL LAB CHEMISTRY METHOD 12/15/2024 4:19 PM EDT [facility] LDL Calculated 71 0 - 100 mg/dL LAB CHEMISTRY METHOD 12/15/2024 4:19 PM EDT [facility] VLDL Cholesterol Umair 17.8 mg/dL LAB CHEMISTRY METHOD 12/15/2024 4:19 PM EDT [facility] Non HDL Chol. (LDL+VLDL) 89 <145 mg/dL LAB CHEMISTRY METHOD 12/15/2024 4:19 PM EDT [facility] Chol/HDL Ratio 3.5 0.0 - 4.4 LAB CHEMISTRY METHOD 12/15/2024 4:19 PM EDT [facility] Blood Venous blood specimen / Unknown Venipuncture / Unknown 12/15/2024 2:10 PM EDT 12/15/2024 2:10 PM EDT Deanne DONNELLY LAB BLOOD ORDERABLES Fin al Result [facility] [address] [place] [address], from Last 3 Months or Most Recently Relevant to Health Maintenance Insurance MEDICAID - [place] [facility] PLAN Care Teams Entry Level Assistant Manager Relationship Specialty Start Date End Date Slava Medrano MD [address] [place] [phone] PCP - General 10/06/22
== END 2025-04-25 10:59 | disposition home or self-care (01) ==
LOC: HO.HCC 09:58
PROVIDERS: Visit Provider Internal Medicine
DX: F10.20 Alcohol dependence, uncomplicated (principal)

== ENCOUNTER → 2025-04-25 09:58 | Outpatient (BNVA) | payer OTHER, SELFPAY | PROVIDERS: Visit Provider Internal Medicine | DX: F10.20 Alcohol dependence, uncomplicated (principal); Z79.899 Other long term (current) drug therapy | CPT/HCPCS: 96372; J2315 ==

== ENCOUNTER 2025-06-05 08:30 | Outpatient (AMB) | payer OTHER, SELFPAY ==
--- NOTE | 2025-06-05 08:39 | AM.OFFVISNUR ---
Vital Signs 06/05/25 08:49 BP 100/60 Pulse 60 Pulse Oximetry (%) 97 Intake Visit Reasons: Injection Allergies No Known Allergies Allergy (Verified 06/05/25 08:50) Nursing Note Assessment & Plan Assessment & Plan Orders: Orders AMB Naltrexone Injection Patient Supplied (NC) Today F10.20 - Alcohol dependence, uncomplicated Medications: New Vivitrol ER (naltrexone microspheres) 380 mg IM ONCE 1 ea 0RF NS F10.20 - Alcohol dependence, uncomplicated Coding
[2025-06-05 08:49] VITALS: BP 100/60; PULSE 60; O2SAT 97
--- OUTSIDE RECORDS SUMMARY | 2025-06-05 08:55 | XMS_ITS | Clinical Summary ---
Author Organization [place] [address] [address] [facility] Building Address [address] [place] [phone] Phone Care Team Providers Care Space Scheduler Name Role Phone Slava Medrano MD Primary Care Provider Allergies No known active allergies Medications OLANZapine (ZyPREXA) 10 mg tablet Take 1 Tab by mouth 2 times daily. 0 Active LORazepam (ATIVAN) 1 mg tablet Take 1 tablet (1 mg total) by mouth. 5 Active VivitroL 380 mg suspension,extende d rel recon intramuscular suspension 5 Active nicotine (NICODERM CQ) 21 mg/[address] 1 patch on the skin 1 (one) time each day at the same time. 30 each 1 5 Active Active Problems Problem Noted Date Diagnosed Date Alcohol abuse 01/23/2021 Agitation 12/16/2020 Anger 12/16/2020 Anxiety disorder 12/16/2020 Encounters Date Type Department Care Team Description 04/23/2025 8:15 AM EDT - 04/23/2025 11:59 PM EDT [facility] [address] [place] [address] Liver abscess Discharge Disposition: Home or Self Care 04/16/2025 10:30 AM EDT Office Visit Adult Medicine [address] [phone] Slava Medrano MD Rotator cuff arthropathy of right shoulder (Primary Dx); Liver abscess; Prediabetes; Cigarette smoker; Bipolar 1 disorder ([facility] V24, [facility] V28) from Last 3 Months Immunizations Immunization Administration Dates Next Due Influenza Quadravalent, MDCK , 0.5ml, preservative free (Flucelvax) 6mo and older 04/07/2019 Tdap Tetanus diptheria acell ular pertussis (Boostrix; Adacel) 7yo and older 03/18/2021 Surgical History Surgery Date Site/Laterality Comments LEG SURGERY PROCEDURE: HISTORICAL LEG SURGERY; COMMENT: age [age] R leg multiple surgeries [facility] Medical History Medical History Date Comments Anger DX:Anger Anxiety disorder DX:Anxiety diso rder Agitation DX:Agitation Bipolar affective ([facility] V24, [facility] V28) History of ETOH abuse Liver abscess Family History Relation Name Status Comments Father Alive Mother Alive Social History Tobacco Use Types Packs/Day Years Used Date Smoking Tobacco: Every Day Cigarettes 1 9.8 Started: 08/02/2015 Smokeless Tobacco: Never Tobacco Cessation:Ready [...] care for your loved ones. For example, child's nurse or elderly care for an older adult? [...] Date Recorded What is your living situation? Unrecognized valu e 10/23/2024 Interpersonal Safety Answer Date Record ed Physical Abuse Unrecognized value 02/13/2025 Verbal Abuse Unrecognized value 02/13/2025 Sex and Gender Information Value Date [...] 4:00 PM EDT Office Visit Adult Medicine [address] [phone] Slava Medrano MD [address] [place], [place] Health Maintenance Due Date Last Done Comments [...] Signed Date: 04/23/2025 09:07 ET Workstation ID: [id number] Transcribed By: Self Edit Transcribed Date: 04/23/2025 [...] Signed Date: 04/23/2025 09:07 ET Workstation ID: [id number] Transcribed By: Self Edit Transcribed Date: 04/23/2025 09:04 ET us Slava Medrano MD IM US PROCEDURES Final Res ult * Hemoglobin A1c (04/16/2025 10:43 AM EDT) Hemoglobin A1C 5.8 <6.5 % LAB CHEMISTRY METHOD 04/16/2025 2:23 PM EDT [facility] Mean Bld Glu Estim. 120 mg/dL LAB CHEMISTRY METHOD 04/16/2025 2:23 PM [facility] Blood Venous blood specimen / Unknown Venipuncture / Unknown 04/16/2025 10:43 AM EDT 04/16/2025 10:43 AM EDT us Slava Medrano MD LAB BLOOD ORDERABLES Final Result [facility] [address] [place] [address], * Comprehensive metabolic panel (04/16/2025 10:43 AM EDT) Sodium 138 133 - 145 mmol/L LAB CHEMISTRY METHOD 04/16/2025 3:57 PM [facility] Potassium 4.1 3.5 - 5.5 mmol/L LAB CHEMISTRY METHOD 04/16/2025 3:57 PM [facility] Chloride 104 96 - 110 mmol/L LAB CHEMISTRY METHOD 04/16/2025 3:57 PM [facility] CO2 29 21 - 32 mmol/L LAB CHEMISTRY METHOD 04/16/2025 3:57 PM [facility] Anion Gap 5 3 - 11 LAB CHEMISTRY METHOD 04/16/2025 3:57 PM [facility] Glucose 89 70 - 100 mg/dL LAB CHEMISTRY METHOD 04/16/2025 3:57 PM [facility] BUN 11 5 - 25 mg/dL LAB CHEMISTRY METHOD 04/16/2025 3:57 PM [facility] Creatinine 1.03 0.70 - 1.30 mg/dL LAB CHEMISTRY METHOD 04/16/2025 3:57 PM [facility] eGFR 91 >=60 mL/min/1. 73m2 LAB CHEMISTRY METHOD 04/16/2025 3:57 PM [facility] Comment:Calculation based on the Chronic Kidney Disease Epidemiology Collaboration (CKD-EPI) equation refit without adjustment for race. BUN/Creatinine Ratio 10.7 LAB CHEMISTRY METHOD 04/16/2025 3:57 PM EDT [facility] Calcium 9.6 8.5 - 10.5 mg/dL LAB CHEMISTRY METHOD 04/16/2025 3:57 PM EDT [facility] AST (SGOT) 12 10 - 42 unit/L LAB CHEMISTRY METHOD 04/16/2025 3:57 PM EDT [facility] ALT (SGPT) 24 10 - 60 unit/L LAB CHEMISTRY METHOD 04/16/2025 3:57 PM EDT [facility] Alkaline Phosphatase 60 42 - 121 unit/L LAB CHEMISTRY METHOD 04/16/2025 3:57 PM EDT [facility] Total Protein 7.5 6.0 - 8.0 g/dL LAB CHEMISTRY METHOD 04/16/2025 3:57 PM EDT [facility] Albumin 4.3 3.2 - 5.0 g/dL LAB CHEMISTRY METHOD 04/16/2025 3:57 PM EDT [facility] Total Bilirubin 0.6 0.0 - 1.4 mg/dL LAB CHEMISTRY METHOD 04/16/2025 3:57 PM EDT [facility] Blood Venous blood specimen / Unknown Venipuncture / Unknown 04/16/2025 10:43 AM EDT 04/16/2025 10:43 AM EDT us Slava Medrano MD LAB BLOOD ORDERABLES Final Result [facility] [address] [place] [address], * COLONOSCOPY Anesthesia - [facility] [place] [place]; [facility] ENDOSCOPY (02/13/2025 2:19 PM EDT) Anatomical Region [...] office PRN. Narrative 02/13/2025 2:20 PM EDT [facility] GI Patient Name: Petey Philip Procedure [...] malignant neoplasm of colon CPT copyright 2020 [employer]. All rights reserved. The codes documented in this report are preliminary and upon mixing house operator review may be revised to meet current compliance requirements. Carlyle Moreno MD 02/13/2025 2:20:28 PM This report has been signed electronically.Carlyle Moreno MD Number of Addenda: 0 Note Initiated On: 02/13/2025 2:00 PM Scope In: Scope Out: Endoscopy Department at [facility] - [address] [place] [phone] Procedure Note Carlyle Moreno MD - 02/13/2025 [facility] GI Patient Name: Petey Philip Procedure [...] for malignantneoplasm of colon CPT copyright 2020 [employer]. All rights reserved. The codes documented in this report are preliminary and upon mixing house operator reviewmay be revised to meet current compliance requirements. Carlyle Moreno MD 02/13/2025 2:20:28 PM This report has been signed electronically.Carlyle Moreno MD Number of Addenda: 0 Note Initiated On: 02/13/2025 2:00 PM Scope In: Scope Out: Endoscopy Department at [facility] - [address] [place] [phone] IMPRESSION: - Diverticulosis in the sigmoid colon. [...] LAB CHEMISTRY METHOD 12/15/2024 5:40 PM EDT [facility] Blood Venous blood specimen / Unknown Venipuncture / Unknown 12/15/2024 2:10 PM EDT 12/15/2024 2:10 PM EDT Narrative [facility] - 12/15/2024 5:40 PM EDT [...] NP LAB BLOOD ORDERABLES Final Re sult [facility] [address] [place] [address], [place] [phone] * (ABNORMAL) Lipid panel with reflex to direct LDL (12/15/2024 2:10 PM EDT) Cholesterol 124 0 - 200 mg/dL LAB CHEMISTRY METHOD 12/15/2024 4:19 PM EDT [facility] Triglycerides 89 0 - 150 mg/dL LAB CHEMISTRY METHOD 12/15/2024 4:19 PM EDT [facility] HDL 35(L) >=40 mg/dL LAB CHEMISTRY METHOD 12/15/2024 4:19 PM EDT [facility] LDL Calculated 71 0 - 100 mg/dL LAB CHEMISTRY METHOD 12/15/2024 4:19 PM EDT [facility] VLDL Cholesterol Umair 17.8 mg/dL LAB CHEMISTRY METHOD 12/15/2024 4:19 PM EDT [facility] Non HDL Chol. (LDL+VLDL) 89 <145 mg/dL LAB CHEMISTRY METHOD 12/15/2024 4:19 PM EDT [facility] Chol/HDL Ratio 3.5 0.0 - 4.4 LAB CHEMISTRY METHOD 12/15/2024 4:19 PM EDT [facility] Blood Venous blood specimen / Unknown Venipuncture / Unknown 12/15/2024 2:10 PM EDT 12/15/2024 2:10 PM EDT Deanne DONNELLY LAB BLOOD ORDERABLES Fin al Result [facility] [address] [place] [address], from Last 3 Months or Most Recently Relevant to Health Maintenance Insurance * Guarantor: Petey Philip Account Type Relation to Patient Date of Phone Billing Address Personal/Family Self [address] [place] [address] [place] - [place] [facility] PLAN Care Teams Space Scheduler Relationship Specialty Start Date End Date Slava Medrano MD [address] [place] [phone] PCP - General 10/06/22
--- OUTSIDE RECORDS SUMMARY | 2025-06-05 08:55 | XMS_ITS ---
Demographics Address [address] [place] [address] Home Phone Mobile Phone Email Address Preferred Language en Marital Status Single Samaritan Affiliation Unknown Race White Ethnic Group Not or Lati no Author Organization [address] Address [address] [place] [address] Phone Care Team Providers Care Personal Financial Representative Name Role Phone Slava Medrano MD Primary Care Provider [phone] [facility] - Food Insecurity Status:Ongoing (Active) Start date:10/24/2024 Enrollment date:10/24/2024 Enrollment reason:Referred by Care Team Related social drivers of health:Food Risk Related program episode:Community Health Worker Program (Closed) Overview Community Health Worker Program - Food Insecurity Service Episode Case Team Name Relationship Phone Carmen Quesada(Responsible Staff) Community Heal th Worker Continued Care and Services Coordination
--- OUTSIDE RECORDS SUMMARY | 2025-06-05 08:55 | XMS_ITS ---
Demographics Address [address] [place] [address] Home Phone Mobile Phone Email Address Preferred Language en Marital Status Single Scientologist Affiliation Unknown Race White Ethnic Group Not or Lati no Author Organization [address] Address [address] [place] [address] Phone Care Team Providers Care Consumer Marketing Manager Name Role Phone Slava Medrano MD [...]
--- NOTE | 2025-06-05 09:18 | AM.OFFVISNUR ---
Vital Signs 06/05/25 08:49 BP 100/60 Pulse 60 Pulse Oximetry (%) 97 Intake Visit Reasons: Injection Allergies No Known Allergies Allergy (Verified 06/05/25 08:50) Nursing Note Kwame is present today for his 4 week Vivitrol injection. Kwame is alert, oriented, cooperative and presents with an appropriate affect. 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 Follow up in a month for the next injection. Office Meds Vivitrol 380 mg intramuscular suspension,extended release Performing Provider: Deanne Lima MD Performing Location: [facility] Administered by: Lisbeth Billingsley RN on 06/05/25 09:10 Dose Route Admin Location Dispensed Lot Number Expiration Date [facility] Core Filer 380 mg IM RG 380 mg 2025-1014T 08/01/27 43229-977-43 [employer] Total Dispensed Waste 380 mg 0 % Comments: Pt is present for Vivitrol injection, pt denies complications with previous injections and tolerated injection well. Pt educated on signs and symptoms of infection at the injection site, urged to call [facility] with any questions or concerns. Follow up appointment made in 4 weeks for next injection. Assessment & Plan Assessment & Plan Orders: Orders AMB Naltrexone Injection Patient Supplied (NC) Today F10.20 - Alcohol dependence, uncomplicated Coding
== END 2025-06-05 09:31 | disposition home or self-care (01) ==
LOC: HO.HCC 08:30
DX: F10.20 Alcohol dependence, uncomplicated (principal)

== ENCOUNTER → 2025-06-05 08:30 | Outpatient (BNVA) | payer OTHER, SELFPAY | DX: F10.20 Alcohol dependence, uncomplicated (principal); Z79.899 Other long term (current) drug therapy | CPT/HCPCS: 96372; J2315 ==

== ENCOUNTER 2025-07-12 14:40 | Outpatient (AMB) | payer OTHER, SELFPAY ==
--- NOTE | 2025-07-12 14:54 | AM.OFFVISNUR ---
Intake Visit Reasons: Injection Allergies No Known Allergies Allergy (Verified 06/05/25 08:50) Coding
--- NOTE | 2025-07-12 15:00 | AM.OFFVISNUR ---
Intake Visit Reasons: Injection Allergies No Known Allergies Allergy (Verified 06/05/25 08:50) Nursing Note Kwame is present today for his 4 week Vivitrol injection. Kwame is alert, oriented, cooperative and presents with an appropriate affect. Kwame reports ongoing stability in recovery- spent Thanksgiving with sober friends to avoid being in a situation that could cause him to be uncomfortable. Will be meeting his family out for Xmas where no alcohol will be consumed; still considering program for RC/peer recovery in the future. Kwame is asking what the time frame typically was for future injections and tapering, he had been going 5 weeks in-between; reccommended a provider check in appointment to discuss timing and taper; provider appointment scheduled prior to next injection appointment. Follow-up appointment made for the next injection. Office Meds Vivitrol 380 mg intramuscular suspension,extended release Performing Provider: Deanne Lima MD Performing Location: [facility] Administered by: Lisbeth Billingsley RN on 07/12/25 15:20 Dose Route Admin Location Dispensed Lot Number Expiration Date [facility] Dispatcher [employer] 380 mg IM LG 380 mg 2025-1025T 67997-684-90 [employer] Total Dispensed Waste 380 mg 0 % Comments: Pt is present for Vivitrol injection, pt denies complications with previous injections and tolerated injection well. Pt educated on signs and symptoms of infection at the injection site, urged to call [facility] with any questions or concerns, pt verbalized understanding. Follow up appointment made in 4 weeks for next injection. Assessment & Plan Assessment & Plan Orders: Orders AMB Naltrexone Injection - Practice Supplied Today F10.20 - Alcohol dependence, uncomplicated Coding
--- OUTSIDE RECORDS SUMMARY | 2025-07-12 22:15 | XMS_ITS ---
Author Organization [address] Address [address] [place] [address] Phone Care Team Providers Care Community Music Therapist Name Role Phone Slava Medrano MD Primary Care Provider [facility] - Transportation Status:Ongoing (Active) Start date:10/24/2024 Enrollment date:10/24/2024 Related social drivers of health:Transportation Related program episode:Community Health Worker Program (Closed) Overview Community Health Worker Program - Transportation Service Episode Case Team Name Relationship Phone Carmen Quesada(Responsible Staff) Community Heal th Worker Continued Care and Services Coordination
--- OUTSIDE RECORDS SUMMARY | 2025-07-12 22:15 | XMS_ITS | Clinical Summary ---
Author Organization [place] [address] [address] [facility] Address [address] [place] [phone] Phone Care Team Providers Care Fur Examiner Name Role Phone Slava Medrano MD Primary [...] 11:59 PM EDT [facility] [address] [place] [address] Liver abscess Discharge Disposition: Home or Self Care 04/16/2025 10:30 AM EDT Office Visit Adult Medicine [address] [phone] Slava Medrano MD Rotator cuff arthropathy of right shoulder (Primary Dx); Liver abscess; Prediabetes; Cigarette smoker; Bipolar 1 disorder ([facility] V24, [facility] V28) from Last 3 Months Immunizations Immunization Administration Dates Next Due Influenza Quadravalent, MDCK , 0.5ml, preservative free (Flucelvax) 6mo and older 04/07/2019 Tdap Tetanus diptheria acell ular pertussis (Boostrix; Adacel) 7yo and older 03/18/2021 Surgical History Surgery Date Site/Laterality Comments LEG SURGERY PROCEDURE: HISTORICAL LEG SURGERY; COMMENT: age 15-20 R leg multiple surgeries [facility] Medical History Medical History Date Comments Anger DX:Anger Anxiety disorder DX:Anxiety diso rder Agitation DX:Agitation Bipolar affective ([facility] V24, [facility] V28) History of ETOH abuse Liver abscess Family History Relation Name Status Comments Father Alive Mother Alive Social History Tobacco Use Types Packs/Day Years Used Date Smoking Tobacco: Every Day Cigarettes 1 9.9 Started: 08/02/2015 Smokeless Tobacco: Never Tobacco Cessation:Ready [...] your loved ones. For example, early childhood coordinator or elderly care for an older adult? [...] on file Sexual Orientation Not on file Last Filed Vital Signs Vital Sign Reading [...] 4:00 PM EDT Office Visit Adult Medicine [address] [phone] Slava Medrano MD [address] [place], [place] Health Maintenance Due Date Last Done [...] Signed Date: 04/23/2025 09:07 ET Workstation ID: [id number] Transcribed By: Self Edit Transcribed Date: 04/23/2025 [...] Signed Date: 04/23/2025 09:07 ET Workstation ID: [id number] Transcribed By: Self Edit Transcribed Date: 04/23/2025 09:04 ET us Slava Medrano MD IM US PROCEDURES Final Res ult * Hemoglobin A1c (04/16/2025 10:43 AM EDT) Hemoglobin A1C 5.8 <6.5 % LAB CHEMISTRY METHOD 04/16/2025 2:23 PM EDT [facility] Mean Bld Glu Estim. 120 mg/dL LAB CHEMISTRY METHOD 04/16/2025 2:23 PM T [facility] Blood Venous blood specimen / Unknown Venipuncture / Unknown 04/16/2025 10:43 AM EDT 04/16/2025 10:43 AM EDT us Slava Medrano MD LAB BLOOD ORDERABLES Final Result [facility] [address] [place] [address], * Comprehensive metabolic panel (04/16/2025 10:43 AM EDT) Sodium 138 133 - 145 mmol/L LAB CHEMISTRY METHOD 04/16/2025 3:57 PM [facility] Potassium 4.1 3.5 - 5.5 mmol/L LAB CHEMISTRY METHOD 04/16/2025 3:57 PM [facility] Chloride 104 96 - 110 mmol/L LAB CHEMISTRY METHOD 04/16/2025 3:57 PM [facility] CO2 29 21 - 32 mmol/L LAB CHEMISTRY METHOD 04/16/2025 3:57 PM [facility] Anion Gap 5 3 - 11 LAB CHEMISTRY METHOD 04/16/2025 3:57 PM [facility] Glucose 89 70 - 100 mg/dL LAB CHEMISTRY METHOD 04/16/2025 3:57 PM [facility] BUN 11 5 - 25 mg/dL LAB CHEMISTRY METHOD 04/16/2025 3:57 PM [facility] Creatinine 1.03 0.70 - 1.30 mg/dL LAB CHEMISTRY METHOD 04/16/2025 3:57 PM [facility] eGFR 91 >=60 mL/min/1. 73m2 LAB CHEMISTRY METHOD 04/16/2025 3:57 PM [facility] Comment:Calculation based on the Chronic Kidney Disease Epidemiology Collaboration (CKD-EPI) equation refit without adjustment for race. BUN/Creatinine Ratio 10.7 LAB CHEMISTRY METHOD 04/16/2025 3:57 PM EDT [facility] Calcium 9.6 8.5 - 10.5 mg/dL LAB CHEMISTRY METHOD 04/16/2025 3:57 PM EDT [facility] AST (SGOT) 12 10 - 42 unit/L LAB CHEMISTRY METHOD 04/16/2025 3:57 PM EDT [facility] ALT (SGPT) 24 10 - 60 unit/L LAB CHEMISTRY METHOD 04/16/2025 3:57 PM EDT [facility] Alkaline Phosphatase 60 42 - 121 unit/L LAB CHEMISTRY METHOD 04/16/2025 3:57 PM EDT [facility] Total Protein 7.5 6.0 - 8.0 g/dL LAB CHEMISTRY METHOD 04/16/2025 3:57 PM EDT [facility] Albumin 4.3 3.2 - 5.0 g/dL LAB CHEMISTRY METHOD 04/16/2025 3:57 PM EDT [facility] Total Bilirubin 0.6 0.0 - 1.4 mg/dL LAB CHEMISTRY METHOD 04/16/2025 3:57 PM EDT [facility] Blood Venous blood specimen / Unknown Venipuncture / Unknown 04/16/2025 10:43 AM EDT 04/16/2025 10:43 AM EDT us Slava Medrano MD LAB BLOOD ORDERABLES Final Result [facility] [address] [place] [address], * COLONOSCOPY Anesthesia - [facility] ENDOSCOPY (02/13/2025 2:19 PM EDT) Anatomical Region [...] office PRN. Narrative 02/13/2025 2:20 PM EDT [facility] [...] malignant neoplasm of colon CPT copyright 2020 [employer]. All rights reserved. The codes documented in this report are preliminary and upon clinical reimbursement specialist review may be revised to meet current compliance requirements. Carlyle Moreno MD 02/13/2025 2:20:28 PM This report has been signed electronically.Carlyle Moreno MD Number of Addenda: 0 Note Initiated On: 02/13/2025 2:00 PM Scope In: Scope Out: Endoscopy Department at [facility] - [address] [place] [phone] Procedure Note Carlyle Moreno MD - 02/13/2025 [...] for malignantneoplasm of colon CPT copyright 2020 [employer]. All rights reserved. The codes documented in this report are preliminary and upon clinical reimbursement specialist reviewmay be revised to meet current compliance requirements. Carlyle Moreno MD 02/13/2025 2:20:28 PM This report has been signed electronically.Carlyle Moreno MD Number of Addenda: 0 Note Initiated On: 02/13/2025 2:00 PM Scope In: Scope Out: Endoscopy Department at [facility] - [address] [place] [phone] IMPRESSION: - Diverticulosis in the sigmoid colon. [...] Re sult [facility] [address] [place] [address], [place] [phone] * (ABNORMAL) Lipid panel with reflex to [...] al Result [facility] [address] [place] [address], from Last 3 Months or Most Recently Relevant to Health Maintenance Insurance * Guarantor: Petey Philip Account Type Relation to Patient Date of Phone Billing Address Personal/Family Self [address] [place] [address] MEDICAID - [place] [facility] Care Teams Fur Examiner Relationship Specialty Start Date End Date Slava Medrano MD [address] [place] [phone] PCP - General 10/06/22
--- OUTSIDE RECORDS SUMMARY | 2025-07-12 22:15 | XMS_ITS ---
Demographics Address [address] [place] [address] Home Phone Mobile Phone Email Address Preferred Language en Marital Status Single Ep[employer]opalian Affiliation Unknown Race White Ethnic Group Not or Lati no Author [facility] [address] [facility] Address [address] [place] [address] Phone Care Team Providers Care Automotive Service Professional Name Role Phone Slava Medrano MD Primary Care Provider [facility] - Food Insecurity Status:Ongoing (Active) Start date:10/24/2024 Enrollment date:10/24/2024 Enrollment reason:Referred by Care Team Related social drivers of health:Food Risk Related program episode:Community Health Worker Program (Closed) Overview Community Health Worker Program - Food Insecurity Service Episode Case Team Name Relationship Phone Carmen Quesada(Responsible Staff) Community Heal th Worker Continued Care and Services Coordination
== END 2025-07-12 15:30 | disposition home or self-care (01) ==
LOC: HO.HCC 14:40
DX: F10.20 Alcohol dependence, uncomplicated (principal)

== ENCOUNTER → 2025-07-12 14:40 | Outpatient (BNVA) | payer OTHER, SELFPAY | DX: F10.20 Alcohol dependence, uncomplicated (principal) | CPT/HCPCS: 96372; J2315 ==